=== PATIENT | female | born 1985 | race Caucasian/White ===

== ENCOUNTER → 2016-04-13 | Outpatient (CLI) | payer OTHER ==
--- NOTE | 2016-04-13 08:44 | FL ---
EXAMINATION TYPE: FL UGI DATE OF EXAM ORDERED: 04/13/2016 8:27 AM HISTORY: Globus sensation. COMPARISON: None. FINDINGS: The esophagus distended well with air and barium without evidence of obstructing or constr icting disease. There is no significant reflux. There is no evidence of hiatal hernia Stomach contour is normal. There is no fixed filling defect or aurelia ulceration. The duodenal cap and sweep are normal, IMPRESSION: NORMAL AIR-CONTRAST UPPER GI SERIES.
== END | disposition home or self-care (01) ==
LOC: RADFLWHC 07:39
PROVIDERS: ATTEND Physician Assistant
DX: F45.8 Other somatoform disorders (principal)
CPT/HCPCS: 74240

== ENCOUNTER 2017-08-01 07:26 | Emergency (ER) | payer OTHER ==
[2017-08-01] MEDS ORDERED: KETOROLAC 30 MG/ML 1 ML VIAL IVP STA (07:57)
[2017-08-01] MEDS ORDERED: SODIUM CHLORIDE 0.9% 500 ML IV STA (07:57)
--- NOTE | 2017-08-01 08:06 | ED ---
General Adult HPI - General Chief complaint: Back Pain/Injury Stated complaint: Right abdominal pain Time Seen by Provider: 08/01/17 07:26 Source: patient, RN notes reviewed Mode of arrival: ambulatory Limitations: no limitations - History of Present Illness Initial comments: This is a 32-year-old female presents emergency Department complaining of right sided CVA pain since 1 AM this morning. Patient states the pain is sharp in nature and usually last 2-3 seconds. Patient states occasionally does come and stay for a while and is pretty significant pain. Patient states it does not radiate anywhere. Patient states she has no abdominal pain patient denies nausea vomiting diarrhea. Patient denies any dysuria hematuria or urinary frequency. Patient states that she recently got over urinary tract infection stopped taking antibiotics about a week ago. Patient states it does not appear that any kind of position increases her pain. Patient states she did sleep in her son's bed last night which is unusual. Patient denies any fever chills. - Related Data Home Medications Medication Instructions Recorded Confirmed ALPRAZolam [Xanax] 0.25 mg PO DAILY PRN 04/24/15 05/07/15 Calcium Carbonate [Tums] 500 mg PO DAILY PRN 04/24/15 05/07/15 Ergocalciferol [Vitamin D2 50,000 unit PO TH 04/24/15 05/07/15 (DRISDOL)] Ibuprofen [Motrin] 800 mg PO DAILY PRN 04/24/15 05/03/15 Cholecalciferol [Vitamin D3] 1,000 unit PO DAILY 05/03/15 05/07/15 Ondansetron [Zofran] 4 mg PO Q8HR PRN 05/07/15 05/07/15 Previous Rx's Medication Instructions Recorded HYDROcodone/APAP 7.5-325MG [[place] 1 each PO Q4H PRN #60 tab 04/25/15 7.5] Ketorolac [Toradol] 10 mg PO Q6HR #15 tab 08/01/17 Sulfamethox-Tmp 800-160Mg [Bactrim 1 each PO Q12HR #14 tab 08/01/17 DS 800-160 mg] Allergies Allergy/AdvReac Type Severity Reaction Status Date / Time No Known Allergies Allergy Verified 08/01/17 07:29 Review of Systems ROS Statement: Those systems with pertinent positive or pertinent negative responses have been documented in the HPI. ROS Other: All systems not noted in ROS Statement are negative. Past Medical History Past Medical History: GI Bleed Additional Past Medical History / Comment(s): ABD PAIN, NAUSEA. ALLERGIES/ NASAL. History of Any Multi-Drug Resistant Organisms: None Reported Past Surgical History: Cholecystectomy Additional Past Surgical History / Comment(s): COLONSCOPY ONLY. Past Anesthesia/Blood Transfusion Reactions: No Reported Reaction Past Psychological History: Anxiety Smoking Status: Never smoker Past Alcohol Use History: None Reported Past Drug Use History: None Reported General Exam - General Exam Comments Initial Comments: GENERAL: Patient is well-developed and well-nourished. Patient is nontoxic and well- hydrated and is in mild distress. ENT: Neck is soft and supple. No significant lymphadenopathy is noted. Oropharynx is clear. Moist mucous membranes. EYES: The sclera were anicteric and conjunctiva were pink and moist. Extraocular movements were intact and pupils were equal round and reactive to light. Eyelids were unremarkable. PULMONARY: Unlabored respirations. Good breath sounds bilaterally. No audible rales rhonchi or wheezing was noted. CARDIOVASCULAR: There is a regular rate and rhythm without any murmurs gallops or rubs. ABDOMEN: Soft and nontender with normal bowel sounds. SKIN: Skin is clear with no lesions or rashes and otherwise unremarkable. NEUROLOGIC: Patient is alert and oriented x3. Cranial nerves II through XII are grossly intact. Motor and sensory are also intact. Normal speech, volume and content. Symmetrical smile. MUSCULOSKELETAL: Normal extremities with adequate strength and full range of motion. No lower extremity swelling or edema. No calf tenderness. Patient has some CVA tenderness on palpation on the right LYMPHATICS: No significant lymphadenopathy is noted PSYCHIATRIC: Normal psychiatric evaluation. Limitations: no limitations Course Vital Signs 08/01/17 08/01/17 07:28 09:30 Temperature 98.4 F 98.7 F Pulse Rate 101 H 78 Respiratory 20 16 Rate Blood Pressure 135/103 138/80 O2 Sat by Pulse 99 98 Oximetry Medical Decision Making - Medical Decision Making Computed tomography scan shows a 5 mm right distal ureteral stone with some hydronephrosis. Patient has had a few white cells in the urine unable to differentiate whether it's from the blood or an infection so we will treat for infection as well. - Lab Data Result diagrams: 08/01/17 07:58 08/01/17 07:45 Lab Results 08/01/17 08/01/17 08/01/17 Range/Units 07:45 07:45 07:58 WBC 11.8 H (3.8-10.6) k/uL RBC 4.99 (3.80-5.40) m/uL Hgb 12.5 (11.4-16.0) gm/dL Hct 38.9 (34.0-46.0) % MCV 78.0 L (80.0-100.0) fL MCH 25.0 (25.0-35.0) pg MCHC 32.0 (31.0-37.0) g/dL RDW 17.9 H (11.5-15.5) % Plt Count 264 (150-450) k/uL Neutrophils % 78 % Lymphocytes % 14 % Monocytes % 4 % Eosinophils % 2 % Basophils % 0 % Neutrophils # 9.2 H (1.3-7.7) k/uL Lymphocytes # 1.7 (1.0-4.8) k/uL Monocytes # 0.5 (0-1.0) k/uL Eosinophils # 0.2 (0-0.7) k/uL Basophils # 0.0 (0-0.2) k/uL Anisocytosis Slight Microcytosis Slight Sodium 143 (137-145) mmol/L Potassium 3.7 (3.5-5.1) mmol/L Chloride 103 (98-107) mmol/L Carbon Dioxide 29 (22-30) mmol/L Anion Gap 11 mmol/L BUN 8 (7-17) mg/dL Creatinine 0.62 (0.52-1.04) mg/dL Est GFR (CKD-EPI)AfAm >90 (>60 ml/min/1.73 sqM) Est GFR (CKD-EPI)NonAf >90 (>60 ml/min/1.73 sqM) Glucose 80 (74-99) mg/dL Calcium 9.2 (8.4-10.2) mg/dL Total Bilirubin 0.4 (0.2-1.3) mg/dL AST 27 (14-36) U/L ALT 44 (9-52) U/L Alkaline Phosphatase 83 (38-126) U/L Total Protein 6.2 L (6.3-8.2) g/dL Albumin 3.7 (3.5-5.0) g/dL Amylase 44 (30-110) U/L Lipase 30 (23-300) U/L Urine Color Light [place] Urine Appearance Turbid H (Clear) Urine pH 7.5 (5.0-8.0) Ur Specific [place] 1.015 (1.001-1.035) Urine Protein 3+ H (Negative) Urine Glucose (UA) Negative (Negative) Urine Ketones Negative (Negative) Urine Blood Large H (Negative) Urine Nitrite Negative (Negative) Urine Bilirubin Negative (Negative) Urine Urobilinogen <2.0 (<2.0) mg/dL Ur Leukocyte Esterase Large H (Negative) Urine RBC >182 H (0-5) /hpf Urine WBC >182 H (0-5) /hpf Urine WBC Clumps Many H (None) /hpf Urine Bacteria Rare H (None) /hpf Urine Mucus Rare H (None) /hpf Disposition Clinical Impression: Kidney stone, Hydronephrosis, Urinary tract infection Disposition: HOME SELF-CARE Instructions: Kidney Stones (ED), Urinary Tract Infection in Women (ED) Prescriptions: Ketorolac [Toradol] 10 mg PO Q6HR #15 tab Sulfamethox-Tmp 800-160Mg [Bactrim DS 800-160 mg] 1 each PO Q12HR #14 tab Is patient prescribed a controlled substance at d/c from ED?: No Referrals: Eric Manley DO [Primary Care Provider] - 1-2 days Time of Disposition: 10:06
[2017-08-01 08:21] LABS: Anisocytosis Slight; Basophils % (A) 0 %; Eosinophils # (A) 0.2 k/uL (0-0.7); Eosinophils % (A) 2 %; HCT 38.9 % (34.0-46.0); HGB 12.5 gm/dL (11.4-16.0); Lymphocytes # (A) 1.7 k/uL (1.0-4.8); Lymphocytes % (A) 14 %; Mean Platelet Volume 6.1; Microcytosis Slight; Monocytes # (A) 0.5 k/uL (0-1.0); Monocytes % (A) 4 %; Neutrophils # (A) 9.2 k/uL (1.3-7.7); Neutrophils % (A) 78 %; Platelet Count 264 k/uL (150-450); RBC 4.99 m/uL (3.80-5.40); RDW 17.9 % (11.5-15.5); WBC 11.8 k/uL (3.8-10.6)
[2017-08-01 08:26] LABS: Appearance,Urine Turbid (Clear); Bacteria,Urine Rare /hpf; Bilirubin,Urine Negative (Negative); Blood,Urine Large (Negative); Color,Urine Light Orange; Glucose,Urine (UA) Negative (Negative); Ketones,Urine Negative (Negative); Leukocyte Esterase,Urine Large (Negative); Mucus,Urine Rare /hpf; Nitrite,Urine Negative (Negative); PH, Urine 7.5 (5.0-8.0); Protein,Urine 3+ (Negative); RBC,Urine >182 /hpf (0-5); Specific Gravity,Urine 1.015 (1.001-1.035); Urobilinogen,Urine <2.0 mg/dL (<2.0); WBC,Urine >182 /hpf (0-5)
[2017-08-01 08:36] LABS: ALT 44 U/L (9-52); AST 27 U/L (14-36); Albumin 3.7 g/dL (3.5-5.0); Alkaline Phosphatase 83 U/L (38-126); Amylase 44 U/L (30-110); Anion Gap 11 mmol/L; Blood Urea Nitrogen 8 mg/dL (7-17); Calcium 9.2 mg/dL (8.4-10.2); Carbon Dioxide 29 mmol/L (22-30); Chloride 103 mmol/L (98-107); Glucose 80 mg/dL (74-99); Lipase 30 U/L (23-300); Potassium 3.7 mmol/L (3.5-5.1); Sodium 143 mmol/L (137-145); Total Bilirubin 0.4 mg/dL (0.2-1.3); Total Protein 6.2 g/dL (6.3-8.2)
--- NOTE | 2017-08-01 09:29 | CT ---
EXAMINATION TYPE: CT abdomen pelvis wo con DATE OF EXAM: 08/01/2017 HISTORY: Rt flank pain CT DLP: 62052.9 mGycm. Automated Exposure Control for Dose Reduction was Utilized. TECHNIQUE: CT scan of the abdomen and pelvis is performed without oral or IV contrast. COMPARISON: Renal ultrasound July 04, 2015 FINDINGS: Within the limitations of a non-contrast study, the following observations are made. LUNG BASES: No significant abnormality is appreciated. LIVER/GB: Liver is diffusely low dense consistent with fatty infiltration. Gallbladder is not visuali zed and presumed surgically absent. Cholecystectomy clips are not clearly seen however. PANCREAS: No significant abnormality is seen. SPLEEN: No significant abnormality is seen. ADRENALS: No significant abnormality is seen. KIDNEYS: No left-sided renal calculi or hydronephrosis. There is calculus measuring 5 mm on long axis in the distal right ureter axial image 127 causing mild to moderate right-sided pyelocaliectasis and proximal hydroureter. No additional right-sided renal calculi are seen. Mild to moderate fat strandi ng surrounding the right ureter is noted. Scattered pelvic phleboliths are seen, favor phlebolith bet ween bladder and uterus axial image 129 based on correlation with coronal and sagittal images. BOWEL: Normal-appearing appendix is incidentally seen from cecum. GENITAL ORGANS: Slight prominence to both ovaries likely reflects cystic change, this could be confir med with pelvic ultrasound if desired LYMPH NODES: No greater than 1cm abdominal or pelvic lymph nodes are appreciated. OSSEOUS STRUCTURES: No significant abnormality is seen. OTHER: No significant additional abnormality is seen. IMPRESSION: There is 5 mm calculus in distal right ureter causing mild to moderate right-sided hydron ephrosis.
[2017-08-01 09:31] VITALS: RESP 16
[2017-08-01] MEDS ORDERED: KETOROLAC 60 MG/2 ML VIAL IVP STA (10:01)
[2017-08-01] MEDS ORDERED: cefTRIAXone IN SWFI 1,000 MG/10 ML SYRINGE IVP STA (10:01)
[2017-08-01 10:48] VITALS: BP 148/82; PULSE 69; TEMP 98.3
== END 2017-08-01 10:45 | disposition home or self-care (01) ==
LOC: EC 07:26
DX: N13.2 Hydronephrosis with renal and ureteral calculous obstruction (principal); N39.0 Urinary tract infection, site not specified; Z79.899 Other long term (current) drug therapy; Z90.49 Acquired absence of other specified parts of digestive tract
CPT/HCPCS: 36415; 80053; 82150; 83690; 85025; 81001; 74176; 99284; 96374; 96375; 96376; J0696; J1885 ×2

== ENCOUNTER 2018-03-06 00:57 | Emergency (ER) | payer OTHER ==
[2018-03-06 01:14] VITALS: RESP 16
[2018-03-06 01:31] LABS: Appearance,Urine Cloudy (Clear); Bilirubin,Urine Negative (Negative); Blood,Urine Negative (Negative); Budding Yeast,Urine Few /hpf; Color,Urine Light Yellow; Glucose,Urine (UA) Negative (Negative); Ketones,Urine Negative (Negative); Leukocyte Esterase,Urine Large (Negative); Mucus,Urine Rare /hpf; Nitrite,Urine Negative (Negative); Protein,Urine Negative (Negative); RBC,Urine 8 /hpf (0-5); Specific Gravity,Urine 1.009 (1.001-1.035); Squamous Epithelial Cell,Urine 1 /hpf (0-4); Urobilinogen,Urine <2.0 mg/dL (<2.0); WBC,Urine 59 /hpf (0-5)
[2018-03-06] MEDS ORDERED: KETOROLAC 30 MG/ML 1 ML VIAL IVP STA (01:37)
--- NOTE | 2018-03-06 01:53 | ED ---
General Adult HPI - General Chief complaint: Abdominal Pain Stated complaint: poss kidney stone Time Seen by Provider: 03/06/18 01:15 Source: patient Mode of arrival: ambulatory Limitations: no limitations - History of Present Illness Initial comments: Marlys is an obese 32-year-old female who presents the emergency department today for evaluation of urinary frequency, hesitancy, dysuria and right flank pain. Patient reports she's been in her usual state of health until this evening. She is woken from sleep of right-sided flank pain and has noted for the past couple of hours she has urinary frequency urgency and dysuria. Patient reports she's had a kidney stone one time in the past which passed spontaneously without urological intervention. She does not follow with urology. Patient reports she is feeling very nauseated but has not had any vomiting. Patient does report she's a significant history of anxiety and she is feeling very anxious due to having to come to the emergency department. Patient denies any fevers, chills, chest pain shortness of breath or change in bowel habits. - Related Data Home Medications Medication Instructions Recorded Confirmed ALPRAZolam [Xanax] 0.25 mg PO DAILY PRN 04/24/15 05/07/15 Calcium Carbonate [Tums] 500 mg PO DAILY PRN 04/24/15 05/07/15 Ergocalciferol [Vitamin D2 50,000 unit PO TH 04/24/15 05/07/15 (DRISDOL)] Ibuprofen [Motrin] 800 mg PO DAILY PRN 04/24/15 05/03/15 Cholecalciferol [Vitamin D3] 1,000 unit PO DAILY 05/03/15 05/07/15 Ondansetron [Zofran] 4 mg PO Q8HR PRN 05/07/15 05/07/15 Previous Rx's Medication Instructions Recorded HYDROcodone/APAP 7.5-325MG [[place] 1 each PO Q4H PRN #60 tab 04/25/15 7.5] Ketorolac [Toradol] 10 mg PO Q6HR #15 tab 08/01/17 Sulfamethox-Tmp 800-160Mg [Bactrim 1 each PO Q12HR #14 tab 08/01/17 DS 800-160 mg] Cephalexin [Keflex] 500 mg PO Q8HR #30 cap 03/06/18 Phenazopyridine HCl [Pyridium] 200 mg PO BID #6 tablet 03/06/18 Sulfamethox-Tmp 800-160Mg [Bactrim 1 tab PO Q12HR #14 tab 03/06/18 DS 800-160 mg] Allergies Allergy/AdvReac Type Severity Reaction Status Date / Time sulfamethoxazole Allergy Intermediate Rash/Hives Verified 03/06/18 05:05 [From Bactrim] trimethoprim [From Bactrim] Allergy Intermediate Rash/Hives Verified 03/06/18 05 :05 Review of Systems ROS Statement: Those systems with pertinent positive or pertinent negative responses have been documented in the HPI. ROS Other: All systems not noted in ROS Statement are negative. Past Medical History Past Medical History: GI Bleed Additional Past Medical History / Comment(s): ABD PAIN, NAUSEA. ALLERGIES/ NASAL. History of Any Multi-Drug Resistant Organisms: None Reported Past Surgical History: Cholecystectomy Additional Past Surgical History / Comment(s): COLONSCOPY ONLY. Past Anesthesia/Blood Transfusion Reactions: No Reported Reaction Past Psychological History: Anxiety Smoking Status: Never smoker Past Alcohol Use History: None Reported Past Drug Use History: None Reported General Exam - General Exam Comments Initial Comments: Physical Exam GENERAL: Patient is well-developed and well-nourished. Patient is nontoxic and well-hydrated and is in mild distress HENT: Normocephalic, Atraumatic. EYES: PERRL, EOMI PULMONARY: Unlabored respirations. No audible rales rhonchi or wheezing was noted. CARDIOVASCULAR: There is a regular rate and rhythm without any murmurs gallops or rubs. ABDOMEN: Soft and nontender with normal bowel sounds. Right flank tenderness to percussion SKIN: Skin is clear with no lesions or rashes and otherwise unremarkable. : Deferred NEUROLOGIC: Patient is alert and oriented x3. Moving all extremities spontaneously MUSCULOSKELETAL: Normal extremities with adequate strength and full range of motion. No lower extremity swelling or edema. No calf tenderness. PSYCHIATRIC: Normal psychiatric evaluation. Limitations: no limitations Limitations: no limitations Course Vital Signs 03/06/18 01:10 Temperature 98.5 F Pulse Rate 100 Respiratory 16 Rate Blood Pressure 152/105 O2 Sat by Pulse 99 Oximetry Medical Decision Making - Medical Decision Making The patient was seen and evaluated history was obtained from the patient History and physical exam are concerning for urinary tract infection or kidney stone. Labs IV fluids and Toradol ordered Urinalysis 6 suggestive of a urinary tract infection. Urine culture and Rocephin were ordered. Pyridium was ordered for symptomatically treatment of dysuria. I discussed the urinalysis results with the patient, she states she has had dysuria for a few days longer but it acutely worsened this morning so she can she may have a bad urinary infection Bedside ultrasound revealed no hydronephrosis I advised the patient that no hydronephrosis indicates that there is no obstructing kidney stone however I cannot absolutely rule out a small stone. Patient reports IV fluids of caused her some increasing pressure and urinary frequency. At this time I'll plan to discharge patient home with antibiotics and Pyridium. Return parameters were discussed. All questions pertaining care were answered patient was discharged home in stable condition. - Lab Data Result diagrams: 03/06/18 02:16 03/06/18 02:16 Lab Results 03/06/18 03/06/18 03/06/18 Range/Units 01:04 01:04 02:16 WBC (3.8-10.6) k/uL RBC (3.80-5.40) m/uL Hgb (11.4-16.0) gm/dL Hct (34.0-46.0) % MCV (80.0-100.0) fL MCH (25.0-35.0) pg MCHC (31.0-37.0) g/dL RDW (11.5-15.5) % Plt Count (150-450) k/uL Neutrophils % % Lymphocytes % % Monocytes % % Eosinophils % % Basophils % % Neutrophils # (1.3-7.7) k/uL Lymphocytes # (1.0-4.8) k/uL Monocytes # (0-1.0) k/uL Eosinophils # (0-0.7) k/uL Basophils # (0-0.2) k/uL Hypochromasia Anisocytosis Microcytosis Sodium 137 (137-145) mmol/L Potassium 5.7 H (3.5-5.1) mmol/L Chloride 108 H (98-107) mmol/L Carbon Dioxide 23 (22-30) mmol/L Anion Gap 6 mmol/L BUN 12 (7-17) mg/dL Creatinine 0.63 (0.52-1.04) mg/dL Est GFR (CKD-EPI)AfAm >90 (>60 ml/min/1.73 sqM) Est GFR (CKD-EPI)NonAf >90 (>60 ml/min/1.73 sqM) Glucose 109 H (74-99) mg/dL Calcium 9.6 (8.4-10.2) mg/dL Urine Color Light Yellow Urine Appearance Cloudy H (Clear) Urine pH 6.0 (5.0-8.0) Ur Specific [place] 1.009 (1.001-1.035) Urine Protein Negative (Negative) Urine Glucose (UA) Negative (Negative) Urine Ketones Negative (Negative) Urine Blood Negative (Negative) Urine Nitrite Negative (Negative) Urine Bilirubin Negative (Negative) Urine Urobilinogen <2.0 (<2.0) mg/dL Ur Leukocyte Esterase Large H (Negative) Urine RBC 8 H (0-5) /hpf Urine WBC 59 H (0-5) /hpf Ur Squamous Epith Cells 1 (0-4) /hpf Urine Mucus Rare H (None) /hpf Urine Yeast (Budding) Few H (None) /hpf Urine HCG, Qual Not Detected (Not Detectd) 03/06/18 Range/Units 02:16 WBC 11.5 H (3.8-10.6) k/uL RBC 5.02 (3.80-5.40) m/uL Hgb 12.2 (11.4-16.0) gm/dL Hct 40.1 (34.0-46.0) % MCV 79.8 L (80.0-100.0) fL MCH 24.3 L (25.0-35.0) pg MCHC 30.5 L (31.0-37.0) g/dL RDW 17.3 H (11.5-15.5) % Plt Count 224 (150-450) k/uL Neutrophils % 78 % Lymphocytes % 14 % Monocytes % 4 % Eosinophils % 2 % Basophils % 0 % Neutrophils # 9.0 H (1.3-7.7) k/uL Lymphocytes # 1.6 (1.0-4.8) k/uL Monocytes # 0.5 (0-1.0) k/uL Eosinophils # 0.3 (0-0.7) k/uL Basophils # 0.0 (0-0.2) k/uL Hypochromasia Slight Anisocytosis Slight Microcytosis Slight Sodium (137-145) mmol/L Potassium (3.5-5.1) mmol/L Chloride (98-107) mmol/L Carbon Dioxide (22-30) mmol/L Anion Gap mmol/L BUN (7-17) mg/dL Creatinine (0.52-1.04) mg/dL Est GFR (CKD-EPI)AfAm (>60 ml/min/1.73 sqM) Est GFR (CKD-EPI)NonAf (>60 ml/min/1.73 sqM) Glucose (74-99) mg/dL Calcium (8.4-10.2) mg/dL Urine Color Urine Appearance (Clear) Urine pH (5.0-8.0) Ur Specific [place] (1.001-1.035) Urine Protein (Negative) Urine Glucose (UA) (Negative) Urine Ketones (Negative) Urine Blood (Negative) Urine Nitrite (Negative) Urine Bilirubin (Negative) Urine Urobilinogen (<2.0) mg/dL Ur Leukocyte Esterase (Negative) Urine RBC (0-5) /hpf Urine WBC (0-5) /hpf Ur Squamous Epith Cells (0-4) /hpf Urine Mucus (None) /hpf Urine Yeast (Budding) (None) /hpf Urine HCG, Qual (Not Detectd) Disposition Clinical Impression: UTI (urinary tract infection) Disposition: HOME SELF-CARE Condition: Stable Instructions: Phenazopyridine (By mouth), Urinary Tract Infection in Women (ED) Prescriptions: Phenazopyridine HCl [Pyridium] 200 mg PO BID #6 tablet Sulfamethox-Tmp 800-160Mg [Bactrim DS 800-160 mg] 1 tab PO Q12HR #14 tab Is patient prescribed a controlled substance at d/c from ED?: No Referrals: Eric Manley DO [Primary Care Provider] - 1-2 days
[2018-03-06 02:42] LABS: Anisocytosis Slight; Basophils % (A) 0 %; Eosinophils # (A) 0.3 k/uL (0-0.7); Eosinophils % (A) 2 %; HCT 40.1 % (34.0-46.0); HGB 12.2 gm/dL (11.4-16.0); Hypochromasia Slight; Lymphocytes # (A) 1.6 k/uL (1.0-4.8); Lymphocytes % (A) 14 %; MCH 24.3 pg (25.0-35.0); MCHC 30.5 g/dL (31.0-37.0); MCV 79.8 fL (80.0-100.0); Mean Platelet Volume 6.8; Microcytosis Slight; Monocytes # (A) 0.5 k/uL (0-1.0); Monocytes % (A) 4 %; Neutrophils % (A) 78 %; Platelet Count 224 k/uL (150-450); RBC 5.02 m/uL (3.80-5.40); RDW 17.3 % (11.5-15.5); WBC 11.5 k/uL (3.8-10.6)
[2018-03-06 02:48] LABS: Anion Gap 6 mmol/L; Calcium 9.6 mg/dL (8.4-10.2); Carbon Dioxide 23 mmol/L (22-30); Chloride 108 mmol/L (98-107); Glucose 109 mg/dL (74-99); Sodium 137 mmol/L (137-145)
[2018-03-06 02:53] LABS: Blood Urea Nitrogen 12 mg/dL (7-17); Potassium 5.7 mmol/L (3.5-5.1)
[2018-03-06] MEDS ORDERED: PHENAZOPYRIDINE 200 MG TAB PO STA (02:53)
[2018-03-06] MEDS ORDERED: MORPHINE SULFATE 4 MG/ML SYRINGE IVP STA (04:44)
[2018-03-06] MEDS ORDERED: ACET/COD 300 MG/30 MG STARTER PACK 6 TAB BTL PO STA (04:44)
[2018-03-06 05:26] VITALS: BP 149/97; PULSE 89; TEMP 98.2
== END 2018-03-06 05:22 | disposition home or self-care (01) ==
LOC: EC 00:57
DX: N39.0 Urinary tract infection, site not specified (principal); Z90.49 Acquired absence of other specified parts of digestive tract; Z88.2 Allergy status to sulfonamides
CPT/HCPCS: 99284; 96365; 96375 ×2; 36415; 80048; 85025; 81001; 81025; 87040; 87086; 87077; 87186; J2270; J0696; J1885

== ENCOUNTER → 2020-03-11 | Outpatient (CLI) | payer OTHER ==
[2020-03-11 13:47] VITALS: BP 151/86; PULSE 105; RESP 18; TEMP 98.2; BMI 47.2
[2020-03-11 15:27] LABS: Anisocytosis Slight; HCT 40.8 % (34.0-46.0); HGB 13.1 gm/dL (11.4-16.0); Hypochromasia Slight; MCH 26.2 pg (25.0-35.0); MCV 81.9 fL (80.0-100.0); Mean Platelet Volume 6.8; Platelet Count 309 k/uL (150-450); RBC 4.98 m/uL (3.80-5.40); RDW 16.5 % (11.5-15.5); WBC 14.4 k/uL (3.8-10.6)
[2020-03-12 03:53] LABS: Albumin 4.2 g/dL (3.80-4.90); Albumin/Globulin Ratio 1.91 (1.60-3.17); Anion Gap 10.1 mmol/L (4.00-12.00); BUN/Creat Ratio 14.29 Ratio (12.00-20.00); Calcium 8.9 mg/dL (8.7-10.3); Carbon Dioxide 24.9 mmol/L (21.6-31.8); Globulin 2.2 g/dL (1.6-3.3); Potassium 4.2 mmol/L (3.5-5.5); Total Bilirubin 0.3 mg/dL (0.2-1.2); Total Protein 6.4 g/dL (6.2-8.2)
[2020-03-12 04:02] LABS: Folate, Serum 8.2 ng/mL
--- NOTE | 2020-03-12 11:11 | P.HPBAR ---
Bariatric H&P - History & Physicial H&P Date: 03/11/20 History & Physicial: Visit/CC: initial visit Patient initial contact: Initial weight: Initial weight in pounds: Height: 5 ft 7 in Initial BMI: Last weight: Current weight: 136.849 kg Current weight in pounds: 301.70 Current BMI: 47.2 [place] body weight (based on NIH guidelines): 61.235 kg Excess body weight loss: The patient is a 34 year-old F who presents for Bariatric Assessment. Patient presents today for morbid obesity conservation. Her BMI is 47. She is interested in sleeve yesterday. Patient's had lifetime obesity. Past Medical History Past Medical History: GI Bleed Additional Past Medical History / Comment(s): ABD PAIN, NAUSEA. ALLERGIES/[place]. History of Any Multi-Drug Resistant Organisms: None Reported Past Surgical History: Cholecystectomy Additional Past Surgical History / Comment(s): COLONSCOPY ONLY. EGD. Past Anesthesia/Blood Transfusion Reactions: No Reported Reaction Past Psychological History: Anxiety Smoking Status: Never smoker Past Alcohol Use History: None Reported Past Drug Use History: None Reported Surgical - Exam Vital Signs Temp Pulse Resp BP 98.2 F 105 H 18 151/86 03/11/20 13:41 03/11/20 13:41 03/11/20 13:41 03/11/20 13:41 - General well developed, well nourished, no distress - Eyes PERRL - ENT normal pinna - Neck no masses - Respiratory normal expansion - Cardiovascular Rhythm: regular - Abdomen Abdomen: soft, non tender Results - Labs 03/11/20 14:33 03/11/20 14:33 Abnormal Lab Results - Last 24 Hours (Table) 03/11/20 03/11/20 Range/Units 14:33 14:33 WBC 14.4 H (3.8-10.6) k/uL RDW 16.5 H (11.5-15.5) % Vitamin D 25-Hydroxy 13.1 L (30.0-100.0) ng/mL Diabetes panel 03/11/20 03/11/20 Range/Units 14:33 14:33 Sodium 140 (135-145) mmol/L Potassium 4.2 (3.5-5.5) mmol/L Chloride 105 (96-109) mmol/L Carbon Dioxide 24.9 (21.6-31.8) mmol/L BUN 10.0 (9.0-27.0) mg/dL Creatinine 0.7 (0.6-1.5) mg/dL Glucose 104 (70-110) mg/dL Hemoglobin A1c 5.6 (4.0-6.0) % Calcium 8.9 (8.7-10.3) mg/dL AST 28 (13-35) U/L ALT 40 (8-44) U/L Alkaline Phosphatase 117 (41-126) U/L Total Protein 6.4 (6.2-8.2) g/dL Albumin 4.20 (3.80-4.90) g/dL Calcium panel 03/11/20 Range/Units 14:33 Calcium 8.9 (8.7-10.3) mg/dL Albumin 4.20 (3.80-4.90) g/dL Pituitary panel 03/11/20 Range/Units 14:33 Sodium 140 (135-145) mmol/L Potassium 4.2 (3.5-5.5) mmol/L Chloride 105 (96-109) mmol/L Carbon Dioxide 24.9 (21.6-31.8) mmol/L BUN 10.0 (9.0-27.0) mg/dL Creatinine 0.7 (0.6-1.5) mg/dL Glucose 104 (70-110) mg/dL Calcium 8.9 (8.7-10.3) mg/dL Adrenal panel 03/11/20 Range/Units 14:33 Sodium 140 (135-145) mmol/L Potassium 4.2 (3.5-5.5) mmol/L Chloride 105 (96-109) mmol/L Carbon Dioxide 24.9 (21.6-31.8) mmol/L BUN 10.0 (9.0-27.0) mg/dL Creatinine 0.7 (0.6-1.5) mg/dL Glucose 104 (70-110) mg/dL Calcium 8.9 (8.7-10.3) mg/dL Total Bilirubin 0.3 (0.2-1.2) mg/dL AST 28 (13-35) U/L ALT 40 (8-44) U/L Alkaline Phosphatase 117 (41-126) U/L Total Protein 6.4 (6.2-8.2) g/dL Albumin 4.20 (3.80-4.90) g/dL Bariatric Assessment & Plan Plan: Morbid obesity, BMI 47. Patient be scheduled for EGD. She'll follow-up in the clinic after this is performed. Bariatric Checklist Checklist: Plan: Checklist: EGD: 1. Hiatal hernia: 2. H. Pylori: HgbA1c: Vitamin D: Smoking: Never smoker Primary care physician referral: Dr. lind Psychiatry clearance: Cardiology clearance: Sleep study: Diet journal: VTE risk score: VTE risk level: Rehab needs at discharge:
== END | disposition home or self-care (01) ==
LOC: BARWHC3 13:13
PROVIDERS: ATTEND Surgery
DX: E66.01 Morbid (severe) obesity due to excess calories (principal); Z68.42 Body mass index [BMI] 45.0-49.9, adult; Z90.49 Acquired absence of other specified parts of digestive tract
CPT/HCPCS: 36415; 80053; 82306; 82607; 82746; 83036; 84425; 85027; 93005; 99211

== ENCOUNTER 2020-04-18 07:37 | Day surgery (SDC) | payer OTHER ==
[2020-04-16 14:22] VITALS: BMI 47.0
[~2020-04-18 07:37] MED LIST: LACTATED RINGERS 1,000 ML IV SCH
[2020-04-18 08:01] VITALS: TEMP 98
[2020-04-18] MEDS ORDERED: LIDOCAINE 1% (10MG/ML) FOR IV START INTRADERMA ONE (08:14)
[2020-04-18] MEDS ORDERED: MIDAZOLAM 2 MG/2 ML VIAL IV ONE (08:18)
[2020-04-18] MEDS ORDERED: PROPOFOL 10 MG/ML 20 ML VIAL IV ONE (08:49)
[2020-04-18] MEDS ORDERED: LIDOCAINE 1% INJ 10MG/ML (20 ML MDV) ONE (08:49)
--- NOTE | 2020-04-18 08:51 | P.GSHP ---
History of Present Illness H&P Date: 04/18/20 Chief Complaint: GERD This is a 34-year-old female who's had issues with GERD. Patient is also morbidly obese with BMI 48. Past Medical History Past Medical History: GERD/Reflux Additional Past Medical History / Comment(s): abd. pain, nausea @times, IBS, mainly diarrhea, seasonal allergies History of Any Multi-Drug Resistant Organisms: None Reported Past Surgical History: Cholecystectomy Additional Past Surgical History / Comment(s): colonoscopies, EGD. Past Anesthesia/Blood Transfusion Reactions: No Reported Reaction Smoking Status: Never smoker Medications and Allergies Home Medications Medication Instructions Recorded Confirmed Type ALPRAZolam [Xanax] 1 mg PO DAILY PRN 04/24/15 04/18/20 History Escitalopram [Lexapro] 20 mg PO DAILY 03/11/20 04/18/20 History Omeprazole 20 mg PO DAILY 03/11/20 04/18/20 History Ergocalciferol [Vitamin D2 50,000 unit PO WEEKLY 03/14/20 04/18/20 History (DRISDOL)] Acetaminophen [Tylenol] 325 mg PO Q4-6H PRN 04/16/20 04/18/20 History Ferrous Sulfate [Feosol] 325 mg PO DAILY 04/16/20 04/18/20 History Loperamide [Imodium] 4 mg PO DIRECTED PRN 04/16/20 04/18/20 History Phentermine HCl [Adipex-P] 37.5 mg PO DAILY 04/16/20 04/18/20 History buPROPion HCL [Wellbutrin XL] 300 mg PO DAILY 04/16/20 04/18/20 History Allergies Allergy/AdvReac Type Severity Reaction Status Date / Time fluconazole [From Diflucan] Allergy Rash/Hives Verified 04/18/20 08:03 sulfamethoxazole AdvReac Intermediate Nausea Verified 04/18/20 08:03 [From Bactrim] trimethoprim [From Bactrim] AdvReac Intermediate Nausea Verified 04/18/20 08:03 Surgical - Exam Vital Signs Temp Pulse Resp BP Pulse Ox 98 F 97 18 152/98 96 04/18/20 07:59 04/18/20 07:59 04/18/20 07:59 04/18/20 07:59 04/18/20 07:59 - General well developed, well nourished, no distress - Eyes PERRL - ENT normal pinna - Neck no masses - Respiratory normal expansion - Cardiovascular Rhythm: regular - Abdomen Abdomen: soft, non tender Assessment and Plan Assessment: GERD Morbid obesity We'll perform EGD.
--- NOTE | 2020-04-18 08:59 | P.OP ---
Date of Procedure: 04/18/20 Preoperative Diagnosis: GERD Postoperative Diagnosis: Antral gastritis Procedure(s) Performed: EGD Anesthesia: MAC Surgeon: Nilo Romo Pathology: other (Antrum) Condition: stable Disposition: PACU Description of Procedure: The patient's placed on the endoscopy table in the lateral position. She rece ived IV sedation. The gastroscope placed oropharynx and passed in the esophagus and into the stomach. Scope was then placed through the pylorus. The first and second portion of the duodenum appeared normal. The scope was then brought back the antrum this was mildly inflamed. A biopsies performed. Scope was unretroflexed and remainder stomach appeared normal. The GE junction was at 40 cms. The distal esophagus appeared normal. Proximal esophagus appeared normal. There is no evidence of a hiatal hernia. The scope was withdrawn for patient.
[2020-04-18 09:06] VITALS: RESP 16
[2020-04-18 09:23] VITALS: BP 137/91; PULSE 85
== END 2020-04-18 09:31 | disposition home or self-care (01) ==
LOC: ORWHC2ENDO 07:37
PROVIDERS: ATTEND Surgery
DX: K29.00 Acute gastritis without bleeding (principal); K31.9 Disease of stomach and duodenum, unspecified; K21.9 Gastro-esophageal reflux disease without esophagitis; E66.01 Morbid (severe) obesity due to excess calories; K58.0 Irritable bowel syndrome with diarrhea; J30.2 Other seasonal allergic rhinitis; F41.9 Anxiety disorder, unspecified; Z88.2 Allergy status to sulfonamides; Z68.42 Body mass index [BMI] 45.0-49.9, adult; Z90.49 Acquired absence of other specified parts of digestive tract; Z98.890 Other specified postprocedural states; Z79.899 Other long term (current) drug therapy; Z88.8 Allergy status to other drugs, medicaments and biological substances
CPT/HCPCS: 81025; 88305; 43239; J2250; J2001; J2704

== ENCOUNTER → 2020-04-29 | Outpatient (CLI) | payer OTHER ==
[2020-04-29 13:54] VITALS: BP 142/85; PULSE 103; RESP 18; TEMP 98.4; BMI 48.0
--- NOTE | 2020-04-29 15:04 | P.HPBAR ---
Bariatric H&P - History & Physicial H&P Date: 04/29/20 History & Physicial: Visit/CC: presurgical Patient initial contact: Initial weight: Initial weight in pounds: Height: 5 ft 7 in Initial BMI: Last weight: Current weight: 139.253 kg Current weight in pounds: 307.00 Current BMI: 48.0 [place] body weight (based on NIH guidelines): 61.235 kg Excess body weight loss: The patient is a 34 year-old F who presents for Bariatric Assessment. Patient presents today for presurgical consultation. She is moderately obese. Her BMI is 48. She is well versed in the sleeve gastrectomy. She understood the risks and benefits of the procedure Past Medical History Past Medical History: GERD/Reflux Additional Past Medical History / Comment(s): abd. pain, nausea @times, IBS, mainly diarrhea, seasonal allergies History of Any Multi-Drug Resistant Organisms: None Reported Past Surgical History: Cholecystectomy Additional Past Surgical History / Comment(s): colonoscopies, EGD. Past Anesthesia/Blood Transfusion Reactions: No Reported Reaction Past Psychological History: Anxiety Smoking Status: Never smoker Past Alcohol Use History: None Reported Past Drug Use History: Marijuana Additional Drug Use History / Comment(s): 1-2 times week Surgical - Exam Vital Signs Temp Pulse Resp BP 98.4 F 103 H 18 142/85 04/29/20 13:50 04/29/20 13:50 04/29/20 13:50 04/29/20 13:50 - General well developed, well nourished, no distress - Eyes PERRL - ENT normal pinna - Neck no masses - Respiratory normal expansion - Cardiovascular Rhythm: regular - Abdomen Abdomen: soft, non tender Bariatric Assessment & Plan Plan: Morbid obesity, BMI 48.. Patient will undergo sleeve gastrectomy once her i nsurance authorization is complete. Bariatric Checklist Checklist: Plan: Checklist: EGD: 1. Hiatal hernia: 2. H. Pylori: HgbA1c: Vitamin D: Smoking: Never smoker Primary care physician referral: Dr. lind Psychiatry clearance: Cardiology clearance: Sleep study: Diet journal: VTE risk score: VTE risk level: Rehab needs at discharge:
== END ==
LOC: BARWHC3 13:19
PROVIDERS: ATTEND Surgery
DX: E66.01 Morbid (severe) obesity due to excess calories (principal); Z68.42 Body mass index [BMI] 45.0-49.9, adult
CPT/HCPCS: 99211

== ENCOUNTER → 2020-05-13 | Outpatient (CLI) | payer OTHER ==
[2020-05-13 09:39] VITALS: BMI 48.1
== END ==
LOC: BARWHC3 08:24
PROVIDERS: ATTEND Surgery
DX: E66.01 Morbid (severe) obesity due to excess calories (principal); Z71.3 Dietary counseling and surveillance
CPT/HCPCS: 97804

== ENCOUNTER → 2020-05-30 | Outpatient (CLI) | payer OTHER ==
[2020-05-30 08:55] LABS: Anisocytosis Slight; Basophils # (A) 0.1 k/uL (0-0.2); Basophils % (A) 1 %; Eosinophils # (A) 0.4 k/uL (0-0.7); Eosinophils % (A) 4 %; HCT 39.5 % (34.0-46.0); HGB 12.8 gm/dL (11.4-16.0); Lymphocytes # (A) 1.9 k/uL (1.0-4.8); Lymphocytes % (A) 17 %; MCH 25.9 pg (25.0-35.0); MCHC 32.5 g/dL (31.0-37.0); MCV 79.8 fL (80.0-100.0); Mean Platelet Volume 6.8; Microcytosis Slight; Monocytes # (A) 0.6 k/uL (0-1.0); Monocytes % (A) 6 %; Neutrophils # (A) 7.8 k/uL (1.3-7.7); Neutrophils % (A) 72 %; Platelet Count 282 k/uL (150-450); RBC 4.94 m/uL (3.80-5.40); RDW 16.8 % (11.5-15.5); WBC 10.8 k/uL (3.8-10.6)
[2020-05-30 09:12] LABS: ALT 44 U/L (4-34); AST 31 U/L (14-36); African American GFR (CKD) >90 (>60 ml/min/1.73 sqM); Albumin 3.6 g/dL (3.5-5.0); Alkaline Phosphatase 110 U/L (38-126); Anion Gap 4 mmol/L; Calcium 8.8 mg/dL (8.4-10.2); Carbon Dioxide 30 mmol/L (22-30); Chloride 103 mmol/L (98-107); Glucose 93 mg/dL (74-99); Non-African American GFR(CKD) >90 (>60 ml/min/1.73 sqM); Potassium 4.4 mmol/L (3.5-5.1); Sodium 137 mmol/L (137-145); Total Bilirubin 0.4 mg/dL (0.2-1.3); Total Protein 6.3 g/dL (6.3-8.2)
[2020-05-30 09:32] LABS: Blood Urea Nitrogen 11 mg/dL (7-17)
== END | disposition home or self-care (01) ==
LOC: LABPAT 07:52
PROVIDERS: ATTEND Surgery
DX: Z01.818 Encounter for other preprocedural examination (principal)
CPT/HCPCS: 36415; 80053; 85025

== ENCOUNTER → 2020-08-19 | Outpatient (CLI) | payer OTHER ==
[2020-08-19 16:14] LABS: Anisocytosis Slight; Basophils # (A) 0.1 k/uL (0-0.2); Basophils % (A) 1 %; Eosinophils # (A) 0.2 k/uL (0-0.7); Eosinophils % (A) 1 %; HCT 42.2 % (34.0-46.0); HGB 13.9 gm/dL (11.4-16.0); Hypochromasia Slight; Lymphocytes # (A) 1.8 k/uL (1.0-4.8); Lymphocytes % (A) 13 %; MCH 26.1 pg (25.0-35.0); MCHC 32.8 g/dL (31.0-37.0); MCV 79.7 fL (80.0-100.0); Mean Platelet Volume 7.2; Microcytosis Slight; Monocytes # (A) 0.6 k/uL (0-1.0); Monocytes % (A) 4 %; Neutrophils # (A) 11.6 k/uL (1.3-7.7); Neutrophils % (A) 80 %; Platelet Count 317 k/uL (150-450); RDW 17.1 % (11.5-15.5); WBC 14.4 k/uL (3.8-10.6)
[2020-08-19 16:29] LABS: ALT 37 U/L (4-34); AST 29 U/L (14-36); African American GFR (CKD) >90 (>60 ml/min/1.73 sqM); Albumin 4.2 g/dL (3.5-5.0); Alkaline Phosphatase 96 U/L (38-126); Anion Gap 6 mmol/L; Blood Urea Nitrogen 16 mg/dL (7-17); Calcium 9.4 mg/dL (8.4-10.2); Carbon Dioxide 28 mmol/L (22-30); Chloride 103 mmol/L (98-107); Glucose 108 mg/dL (74-99); Non-African American GFR(CKD) >90 (>60 ml/min/1.73 sqM); Potassium 4.2 mmol/L (3.5-5.1); Sodium 137 mmol/L (137-145); Total Bilirubin 0.4 mg/dL (0.2-1.3); Total Protein 6.8 g/dL (6.3-8.2)
== END | disposition home or self-care (01) ==
LOC: LABPAT 15:22
PROVIDERS: ATTEND Surgery
DX: Z01.812 Encounter for preprocedural laboratory examination (principal)
CPT/HCPCS: 36415; 80053; 85025

== ENCOUNTER 2020-08-28 07:06 | Inpatient (IN) | payer OTHER ==
[~2020-08-28 07:06] MED LIST changes: +DEXAMETHASONE SOD PHOSPHATE 4 MG/ML 1 ML VIAL IV ONE; +ENOXAPARIN 40 MG/0.4 ML SYRINGE SQ PRN; +GLYCOPYRROLATE 0.2 MG/ML 2 ML VIAL ONE; +KETOROLAC 15 MG/ML 1 ML VIAL ONE; -LACTATED RINGERS 1,000 ML IV SCH; +LIDOCAINE 1% (10MG/ML) FOR IV START INTRADERMA PRN; +LIDOCAINE 1% INJ 10MG/ML (20 ML MDV) ONE; +MIDAZOLAM 2 MG/2 ML VIAL IV PRN; +MIDAZOLAM 2 MG/2 ML VIAL ONE; +ONDANSETRON 4 MG/2 ML VIAL IVP ONE; +PROPOFOL 10 MG/ML 20 ML VIAL IV ONE; +ceFAZolin 3 GM in SODIUM CHLORIDE 0.9% 100 ML IVPB PRN; +fentaNYL (PF) 50 MCG/ML 2 ML AMP ONE
[2020-08-28] MEDS: LACTATED RINGERS 1,000 ML IV SCH (07:59)
--- NOTE | 2020-08-28 08:07 | P.GSHP ---
History of Present Illness H&P Date: 08/28/20 Chief Complaint: Morbid obesity This 35-year-old female who presents today for laparoscopic sleeve gastrectomy. Patient abnormalities. Her BMI is 43. Patient is an excellent understanding of sleeve gastrectomy. She is aware the risks and benefits of procedure. She is aware of the risk of gastric sleeve perforation, obstruction and scarring. Past Medical History Past Medical History: GERD/Reflux Additional Past Medical History / Comment(s): IBS, mainly diarrhea, seasonal allergies History of Any Multi-Drug Resistant Organisms: None Reported Past Surgical History: Cholecystectomy Additional Past Surgical History / Comment(s): colonoscopies, EGD. Past Anesthesia/Blood Transfusion Reactions: No Reported Reaction Smoking Status: Never smoker - Past Family History Mother Family Medical History: No Reported History Medications and Allergies Home Medications Medication Instructions Recorded Confirmed Type ALPRAZolam [Xanax] 1 mg PO DAILY PRN 04/24/15 08/28/20 History Escitalopram [Lexapro] 20 mg PO DAILY 03/11/20 08/28/20 History Omeprazole 20 mg PO DAILY 03/11/20 08/28/20 History Loperamide [Imodium] 4 mg PO DIRECTED PRN 04/16/20 08/28/20 History Allergies Allergy/AdvReac Type Severity Reaction Status Date / Time fluconazole [From Diflucan] Allergy Rash/Hives Verified 08/28/20 07:31 sulfamethoxazole AdvReac Intermediate Nausea Verified 08/28/20 07:31 [From Bactrim] trimethoprim [From Bactrim] AdvReac Intermediate Nausea Verified 08/28/20 07:31 Surgical - Exam Vital Signs Temp Pulse Resp BP Pulse Ox 97.3 F L 78 18 111/58 96 08/28/20 07:39 08/28/20 07:39 08/28/20 07:39 08/28/20 07:39 08/28/20 07:39 - General well developed, well nourished, no distress - Eyes PERRL - ENT normal pinna - Neck no masses - Respiratory normal expansion - Cardiovascular Rhythm: regular - Abdomen Abdomen: soft, non tender Assessment and Plan Assessment: Morbid obesity. We'll perform laparoscopic sleeve gastrectomy.
[2020-08-28] MEDS ORDERED: LIDOCAINE 1% INJ 10MG/ML (20 ML MDV) ONE (09:23)
[2020-08-28] MEDS ORDERED: fentaNYL (PF) 50 MCG/ML 2 ML AMP ONE (09:23)
[2020-08-28] MEDS ORDERED: KETAMINE 10 MG/ML 20 ML VIAL ONE (09:23)
[2020-08-28] MEDS ORDERED: KETOROLAC 15 MG/ML 1 ML VIAL ONE (09:23)
[2020-08-28] MEDS ORDERED: SUGAMMADEX SODIUM 500 MG/5 ML SDV IV ONE (09:23)
[2020-08-28] MEDS ORDERED: SUCCINYLCHOLINE CHLORIDE 100 MG/5 ML SYR IV ONE (09:23)
[2020-08-28] MEDS ORDERED: HYDROmorphone (PF) 1 MG/ML ONE (09:23)
[2020-08-28] MEDS ORDERED: ROCURONIUM 10 MG/ML (5 ML VIAL) IV ONE (09:23)
[2020-08-28] MEDS ORDERED: PROPOFOL 10 MG/ML 20 ML VIAL IV ONE (09:23)
[2020-08-28] MEDS ORDERED: METHYLENE BLUE 10 MG/ML (10 ML VIAL) ONE (09:23)
[2020-08-28] MEDS ORDERED: MIDAZOLAM 2 MG/2 ML VIAL ONE (09:23)
[2020-08-28] MEDS ORDERED: LIDOCAINE 1%-EPI 1:100,000 20 ML VIAL SQ ONE ×2 (09:53→09:55)
[2020-08-28] MEDS ORDERED: SIMETHICONE 40 MG/0.6 ML DROPS 2,000 MG/30 ML BOTTLE PO PRN (10:28)
[2020-08-28] MEDS ORDERED: HYOSCYAMINE ORAL DROPS 1.875 MG/15 ML BOTTLE PO PRN (10:28)
[2020-08-28] MEDS ORDERED: diphenhydrAMINE 50 MG/ML 1 ML VIAL IVP PRN (10:28)
[2020-08-28] MEDS ORDERED: NALOXONE 0.4 MG/ML 1 ML VIAL IV PRN (10:28)
--- NOTE | 2020-08-28 10:28 | P.OP ---
Date of Procedure: 08/28/20 Preoperative Diagnosis: Morbid obesity, BMI 42 Postoperative Diagnosis: Morbid obesity, BMI 42 Procedure(s) Performed: Laparoscopic sleeve gastrectomy Anesthesia: DOM Surgeon: Nilo Romo Estimated Blood Loss (ml): 5 Pathology: other (Stomach) Condition: stable Disposition: PACU Description of Procedure: The patient was placed on the operating room table in the supine position. She received general anesthesia and then was placed in dorsal lithotomy position. Her abdomen was prepped and draped in sterile fashion. The skin incision sites were anesthetized 1% local Xylocaine. And then the skin was incised with an 11 blade in the left lateral position. Using a blade less trocar under direct visualization the peritoneal cavity was entered. The abdomen was insufflated and then a 5 mm laparoscope was placed into the peritoneal cavity. A 5 mm trocar was placed in the right epigastric, and right lateral position. A 15 mm trocar was placed in the supra-umbilical position and another 5 mm trocar was placed in the left lateral position. The left lateral lobe of the liver was retracted. The stomach was visualized. The greater curvature of the stomach was then dissected using the Harmonic scissors. The dissection occurred approximately 5 cm from the pylorus to the level of the left angela. There was no hiatal hernia seen. At this point a 40-[place] bougie dilator was placed the oropharynx and passed into the esophagus and into the stomach by the UNIFORM CAP OPERATOR. The sleeve gastrectomy was performed by using the powered echelon stapler with a seam guard buttress material. Sequential firings of the stapler were performed. The gastric remnant was then brought out through the 15 mm trocar site. The dilator was withdrawn. And a orogastric tube was replaced into the stomach. The stomach was insufflated with 200 mL of methylene blue normal saline. There was no evidence of extravasation. The abdomen was irrigated there is no bleeding seen. The Peng-Michael device was used to close the 15 mm trocar with 0 Vicryl. Skin was closed with interrupted 3-0 Monocryl sutures once the trochars withdrawn. Dermabond dressing was applied. Patient was sent to recovery in stable condition.
[2020-08-28] MEDS: HYDROmorphone 0.5 MG/0.5 ML SYRINGE IVP PRN ×3 (10:52→13:00)
[2020-08-28] MEDS ORDERED: LACTATED RINGERS 1,000 ML IV ONE (10:54)
[2020-08-28] MEDS ORDERED: diphenhydrAMINE 50 MG/ML 1 ML VIAL IVP ONE (11:05)
[2020-08-28] MEDS ORDERED: fentaNYL (PF) 50 MCG/ML 2 ML AMP IVP ONE ×2 (11:25→12:15)
[2020-08-28] MEDS: ALBUTEROL NEBULIZED 2.5 MG/3 ML INHALATION SCH ×4 (12:54→21:59)
[2020-08-28] MEDS: KETOROLAC 15 MG/ML 1 ML VIAL IVP SCH ×3 (13:41→23:23)
[2020-08-28] MEDS: HYDROmorphone 1 MG/ML 1 ML SYRINGE IVP PRN ×4 (14:07→23:24)
[2020-08-28] MEDS: ceFAZolin 3 GM in SODIUM CHLORIDE 0.9% 100 ML IVPB SCH (16:46)
[2020-08-28] MEDS: 0.9% NACL WITH KCL 20 MEQ/L 1,000 ML IV SCH ×3 (16:46→23:33)
[2020-08-28] MEDS: ENOXAPARIN 40 MG/0.4 ML SYRINGE SQ SCH (20:07)
[2020-08-29] MEDS ORDERED: ALPRAZolam 1 MG TAB PO PRN (01:44)
[2020-08-29] MEDS: ceFAZolin 3 GM in SODIUM CHLORIDE 0.9% 100 ML IVPB SCH (02:09)
[2020-08-29] MEDS: HYDROmorphone 1 MG/ML 1 ML SYRINGE IVP PRN ×4 (02:35→12:08)
[2020-08-29 02:52] VITALS: RESP 16
[2020-08-29] MEDS: 1: MVI, ADULT NO.4 WITH VIT K 10 ML, THIAMINE 100 MG, FOLIC ACID 1 MG, POTASSIUM CHLORID IV SCH ×12 (04:24→14:51)
[2020-08-29] MEDS: 0.9% NACL WITH KCL 20 MEQ/L 1,000 ML IV SCH (04:30)
[2020-08-29] MEDS: KETOROLAC 15 MG/ML 1 ML VIAL IVP SCH ×2 (05:36→12:00)
[2020-08-29] MEDS: LACTATED RINGERS 1,000 ML IV SCH (05:47)
[2020-08-29] MEDS: ALBUTEROL NEBULIZED 2.5 MG/3 ML INHALATION SCH ×2 (07:28→11:46)
[2020-08-29] MEDS: ENOXAPARIN 40 MG/0.4 ML SYRINGE SQ SCH (08:24)
[2020-08-29] MEDS ORDERED: PANTOPRAZOLE 40 MG/10 ML VIAL IV SCH (09:00)
[2020-08-29 09:50] LABS: Basophils # (A) 0.03 X 10*3/uL (0.00-0.10); Basophils % (A) 0.3 %; Eosinophils # (A) 0.04 X 10*3/uL (0.04-0.35); Eosinophils % (A) 0.4 %; HCT 37.1 % (37.2-46.3); HGB 11.4 g/dL (12.0-15.0); Lymphocytes # (A) 1.34 X 10*3/uL (0.90-5.00); Lymphocytes % (A) 14.8 %; MCH 25.6 pg (27.0-32.0); MCHC 30.7 g/dL (32.0-37.0); MCV 83.4 fL (80.0-97.0); Mean Platelet Volume 10.3 fL (9.5-12.2); Monocytes # (A) 0.67 X 10*3/uL (0.20-1.00); Monocytes % (A) 7.4 %; Neutrophils # (A) 6.92 X 10*3/uL (1.80-7.70); Neutrophils % (A) 76.2 %; Platelet Count 280 X 10*3/uL (140-440); RBC 4.45 X 10*6/uL (4.10-5.20); RDW 17.3 % (11.5-14.5); WBC 9.08 X 10*3/uL (4.50-10.00)
[2020-08-29] MEDS ORDERED: LORazepam 2 MG/ML INJ IV PRN (10:21)
[2020-08-29 11:26] LABS: African American GFR (CKD) 136.9 (60.0-200.0); Calcium 8.5 mg/dL (8.7-10.3); Magnesium 1.7 mg/dL (1.5-2.4); Non-African American GFR(CKD) 118.1 (60.0-200.0); Phosphorus 2.8 mg/dL (2.4-5.1); Potassium 4.1 mmol/L (3.5-5.5)
[2020-08-29] MEDS ORDERED: DEXAMETHASONE SOD PHOSPHATE 4 MG/ML 1 ML VIAL IV SCH (12:00)
--- NOTE | 2020-08-29 12:24 | FL ---
EXAMINATION TYPE: FL UGI DATE OF EXAM: 08/29/2020 COMPARISON: Upper GI 04/13/2016, CT abdomen and pelvis 08/01/2017 HISTORY: Postoperative bariatric gastric sleeve TECHNIQUE: A single/double contrast UGI study is performed. A total of 48 seconds of fluoroscopic t daron was utilized during procedure and multiple fluoroscopic and 2 static images obtained. FINDINGS: The esophagus shows normal motility and emptying into the stomach. There is passage into the gastric sleeve and into the remainder of the stomach without delay. There is however delay of contrast into t he duodenum which is not seen after 30 minutes. This may be due to severe gastroparesis or gastric ou tlet obstruction. Clinical correlation is recommended. IMPRESSION: 1. No delay in emptying into the gastric sleeve and the distal stomach. There is however no contrast seen within the proximal duodenum after 30 minutes. This may be due to severe gastroparesis or gastri c outlet obstruction. Clinical correlation is recommended.
[2020-08-29 14:30] VITALS: BP 120/77; PULSE 93; TEMP 98.1; BMI 42.5
--- NOTE | 2020-08-29 15:34 | P.DS ---
Providers Date of admission: 08/28/20 07:06 Expected date of discharge: 08/29/20 Attending physician: Nilo Romo Consults: 08/28/20 10:28 Consult Physician Routine Consulting Provider: Eric Manley Consult Reason/Comments: Medical management Do you want consulting provider notified?: Yes Primary care physician: Eric Manley [place] [facility] Course: Discharge diagnosis 1. Morbid obesity status post laparoscopic sleeve gastrectomy Hospital course This is a 35-year-old female with morbid obesity she is status post laparoscopic sleeve gastrectomy. Patient reports that her pain is controlled. Denies any nausea or vomiting. Denies any difficulty swallowing. She is tolerating bariatric clear liquid diet. She is having flatus. She is urinating without difficulty. She is afebrile. She has been up and ambulating. Upper GI showed no delay in emptying into the gastric sleeve and distal stomach. There is however no contrast seen within the proximal duodenal after 30 minutes. This may be due to severe gastroparesis or gastric outlet obstruction. Patient given a dose of IV Decadron. And has been tolerating liquid diet without a or nausea and vomiting. Patient would like to be discharge. She is stable for discharge. Please refer to chart for any further details. Please note that patient was seen and examined with Dr. Romo. Physician Blood Bank Supervisor note has been reviewed by physician. Signing provider agrees with the documented findings, assessment, and plan of care. Patient Condition at Discharge: Stable Plan - Discharge Summary Discharge Rx Participant: Yes New Discharge Prescriptions: New bisacodyL [Dulcolax] 5 mg PO DAILY PRN #10 tablet.dr PRN Reason: Constipation Simethicone 40 mg/0.6 ml Drops [Mylicon Drops] 40 mg PO PCHS PRN #30 ml PRN Reason: Gas Ondansetron Odt [Zofran Odt] 4 mg PO Q8HR PRN #9 tab PRN Reason: Nausea HYDROcodone/APAP [[place] Elixir 7.5-325Mg/15Ml] 15 ml PO Q6HR PRN 3 Days #180 ml PRN Reason: Pain Continue ALPRAZolam [Xanax] 1 mg PO DAILY PRN PRN Reason: Anxiety Escitalopram [Lexapro] 20 mg PO DAILY Omeprazole 20 mg PO DAILY Loperamide [Imodium] 4 mg PO DIRECTED PRN PRN Reason: Diarrhea Discharge Medication List ALPRAZolam [Xanax] 1 mg PO DAILY PRN 04/24/15 [History] Escitalopram [Lexapro] 20 mg PO DAILY 03/11/20 [History] Omeprazole 20 mg PO DAILY 03/11/20 [History] Loperamide [Imodium] 4 mg PO DIRECTED PRN 04/16/20 [History] HYDROcodone/APAP [[place] Elixir 7.5-325Mg/15Ml] 15 ml PO Q6HR PRN 3 Days #180 ml 08/29/20 [Rx] Ondansetron Odt [Zofran Odt] 4 mg PO Q8HR PRN #9 tab 08/29/20 [Rx] Simethicone 40 mg/0.6 ml Drops [Mylicon Drops] 40 mg PO PCHS PRN #30 ml 08/29/20 [Rx] bisacodyL [Dulcolax] 5 mg PO DAILY PRN #10 tablet. 08/29/20 [Rx] Follow up Appointment(s)/Referral(s): Eric Manley DO [Primary Care Provider] - 09/09/20 1:00 pm Bariatric [place], [place] [NON-STAFF] - 08/30/20 11:30 am Patient Instructions/Handouts: Nutrition after Bariatric Surgery (DC), Nutrition after Bariatric Surgery (GEN), Laparoscopic Sleeve Gastrectomy (DC), Laparoscopic Sleeve Gastrectomy (GEN) Activity/Diet/Wound Care/Special Instructions: No driving while taking [place] No lifting over 10 pounds You may shower. No soaking or tub baths for 2 weeks Very light activity until you are reevaluated at your follow up appointment with your surgeon Discharge Disposition: HOME SELF-CARE
--- NOTE | 2020-08-29 18:09 | P.CONS ---
History of Present Illness - Reason for Consult Consult date: 08/29/20 Medical management seasonal ALLERGIES, anxiety Requesting physician: Nilo Romo - Chief Complaint Obesity status post laparoscopic sleeve gastrectomy - History of Present Illness This is a 35-year-old female with morbid obesity status post laparoscopic sleeve gastrectomy. Tolerated procedure well. Reports burping, denies passing gas or bowel movement. Laparoscopic dressing sites with shadowing, binder present. Swallowing evaluation pending. Denies nausea or vomiting. Denies chest pain, palpitations or shortness of breath. Using incentive spirometer. Review of Systems Constitutional: Denied any fatigue denied any fever. Cardio vascular: denied any chest pain, palpitations Gastrointestinal denied any nausea vomiting Pulmonary: Denied any shortness of breath cough Neurologic denied any new focal deficits ROS Statement: Those systems with pertinent positive or pertinent negative responses have been documented in the HPI. ROS Other: All systems not noted in ROS Statement are negative. Past Medical History Past Medical History: GERD/Reflux Additional Past Medical History / Comment(s): IBS, mainly diarrhea, seasonal allergies History of Any Multi-Drug Resistant Organisms: None Reported Past Surgical History: Cholecystectomy Additional Past Surgical History / Comment(s): colonoscopies, EGD. Past Anesthesia/Blood Transfusion Reactions: No Reported Reaction Past Psychological History: Anxiety Smoking Status: Never smoker Past Alcohol Use History: None Reported Past Drug Use History: Marijuana Additional Drug Use History / Comment(s): 1-2 times week - Past Family History Mother Family Medical History: No Reported History Medications and Allergies Home Medications Medication Instructions Recorded Confirmed Type ALPRAZolam [Xanax] 1 mg PO DAILY PRN 04/24/15 08/28/20 History Escitalopram [Lexapro] 20 mg PO DAILY 03/11/20 08/28/20 History Omeprazole 20 mg PO DAILY 03/11/20 08/28/20 History Loperamide [Imodium] 4 mg PO DIRECTED PRN 04/16/20 08/28/20 History HYDROcodone/APAP [[place] Elixir 15 ml PO Q6HR PRN 3 Days #180 ml 08/29/20 Rx 7.5-325Mg/15Ml] Ondansetron Odt [Zofran Odt] 4 mg PO Q8HR PRN #9 tab 08/29/20 Rx Simethicone 40 mg/0.6 ml Drops 40 mg PO PCHS PRN #30 ml 08/29/20 Rx [Mylicon Drops] bisacodyL [Dulcolax] 5 mg PO DAILY PRN #10 tablet. 08/29/20 Rx Allergies Allergy/AdvReac Type Severity Reaction Status Date / Time fluconazole [From Diflucan] Allergy Rash/Hives Verified 08/28/20 07:31 sulfamethoxazole AdvReac Intermediate Nausea Verified 08/28/20 07:31 [From Bactrim] trimethoprim [From Bactrim] AdvReac Intermediate Nausea Verified 08/28/20 07:31 Physical Exam Vitals: Vital Signs Temp Pulse Pulse Resp BP BP Pulse Ox 08/29/20 08:00 98.2 F 74 16 103/70 98 08/29/20 07:40 76 08/29/20 07:31 72 08/29/20 01:58 98.2 F 90 16 111/75 97 08/28/20 20:00 86 18 08/28/20 19:10 97.6 F 86 18 128/84 98 08/28/20 16:57 86 08/28/20 16:48 83 97 08/28/20 14:00 97.6 F 77 18 140/96 96 08/28/20 13:00 88 18 117/75 99 08/28/20 12:30 98 16 167/94 98 08/28/20 12:15 100 16 145/79 99 08/28/20 11:45 91 16 163/86 98 08/28/20 11:30 98 16 160/85 98 08/28/20 11:15 97 16 160/85 98 08/28/20 11:00 86 16 154/94 98 08/28/20 10:45 93 16 152/77 97 08/28/20 10:34 99 F 95 16 174/81 98 Intake and Output 08/28/20 08/29/20 08/29/20 22:59 06:59 14:59 Intake Total 1400 Output Total 700 Balance 700 Intake: Intake, IV Titration 1400 Amount 0.9% NaCl with KCl 20 Meq 1000 /l 1,000 ml @ 150 mls/hr IV .Q6H40M [facility] Rx#: [id number] Mvi, Adult No.4 with Vit 300 K 10 ml Thiamine 100 mg Folic Acid 1 mg Potassium Chloride 20 meq In Sodium Chloride 0.9% 1, 000 ml @ 100 mls/hr IV . BY DURATION [facility] Rx#: [id number] ceFAZolin 3 gm In Sodium 100 Chloride 0.9% 100 ml @ 200 mls/hr IVPB Q8H [facility] Rx#:[id number] Output: Urine 700 Other: Voiding Method Toilet # Voids 2 4 PHYSICAL EXAM: VITAL SIGNS: As above GENERAL: Sitting up in bed, no acute distress HEENT: Conjunctivae normal. eyes normal. NECK: No JVD. No thyroid enlargement. No LNs CARDIOVASCULAR: S1, S2 regular. No murmur RESPIRATION: Breath sounds diminished in the bases. No rhonchi or crackles. No bronchial breathing. ABDOMEN: Soft, status post surgery, laparoscopic dressings sites with shadowing. Binder present. No guarding. Bowel sounds heard. LEGS: No edema. no swelling PSYCHIATRY: Alert and oriented X3, mood and affect normal. NERVOUS SYSTEM: Cranial N 2-12 grossly normal. Moves all 4 limbs. No focal deficits. Strength and sensation grossly intact.. Skin: Warm and dry, no rash Results CBC & Chem 7: 08/29/20 06:24 08/29/20 06:24 Assessment and Plan Assessment: Obesity, status post laparoscopic sleeve gastrectomy, BMI 42.5 Gastroesophageal reflux disease IBS Seasonal ALLERGIES Anxiety Plan: Continue on current medication regime ,monitoring and symptomatic treatment. Swallowing evaluation pending. Increase ambulation as tolerated. Aggressive pulmonary toileting with incentive spirometer reinforced. Discharge planning as per surgery. Follow-up with PCP in [address] Romo for the consult. The impression and plan of care has been dictated as directed. : I performed a history and examination of this patient, discussed the same with the dictator. I agree with the dictator's note ,documented as a scribe. Any additional findings or plans will be noted.
[2020-08-30] MEDS ORDERED: bisacodyL 5 MG TABLET.DR PO PRN (08:00)
== END 2020-08-29 16:37 | disposition home or self-care (01) | DRG 621 ==
LOC: 2ORMAIN 07:06 → 4SSUR 12:44
PROVIDERS: ADMIT Surgery; ATTEND Surgery
PROC: 0DB64Z3 Excision of Stomach, Percutaneous Endoscopic Approach, Vertical (ICD-10-PCS; principal; 2020-08-28 09:10)
DX: E66.01 Morbid (severe) obesity due to excess calories (principal); Z68.41 Body mass index [BMI] 40.0-44.9, adult; F41.9 Anxiety disorder, unspecified; K21.9 Gastro-esophageal reflux disease without esophagitis; J30.2 Other seasonal allergic rhinitis; K58.0 Irritable bowel syndrome with diarrhea; Z79.899 Other long term (current) drug therapy; Z90.49 Acquired absence of other specified parts of digestive tract; Z87.19 Personal history of other diseases of the digestive system; Z98.890 Other specified postprocedural states; Z88.2 Allergy status to sulfonamides; Z88.8 Allergy status to other drugs, medicaments and biological substances
CPT/HCPCS: 74240; 80051; 81025; 82310; 82565; 83735; 84100; 84520; 85025; 88307; 94640

== ENCOUNTER → 2020-09-09 | Outpatient (CLI) | payer OTHER ==
[2020-09-09 14:58] VITALS: BMI 40.7
[2020-09-09 15:01] VITALS: BP 104/72; PULSE 79; RESP 18; TEMP 97.8
--- NOTE | 2020-09-09 16:09 | P.HPBAR ---
Bariatric H&P - History & Physicial H&P Date: 09/09/20 History & Physicial: Visit/CC: follow up Patient initial contact: Initial weight: Initial weight in pounds: Height: 5 ft 7 in Initial BMI: Last weight: Current weight: 117.934 kg Current weight in pounds: 260.00 Current BMI: 40.7 [place] body weight (based on NIH guidelines): 61.235 kg Excess body weight loss: The patient is a 35 year-old F who presents for Bariatric Assessment. Patient presents today for sleeve gastrectomy full. She's had some mild GERD. She has had excellent Weight loss. Past Medical History Past Medical History: GERD/Reflux Additional Past Medical History / Comment(s): IBS, mainly diarrhea, seasonal allergies History of Any Multi-Drug Resistant Organisms: None Reported Past Surgical History: Bariatric Surgery, Cholecystectomy Additional Past Surgical History / Comment(s): colonoscopies, EGD. 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 Past Anesthesia/Blood Transfusion Reactions: No Reported Reaction Past Psychological History: Anxiety Smoking Status: Never smoker Past Alcohol Use History: None Reported Past Drug Use History: Marijuana Additional Drug Use History / Comment(s): 1-2 times week - Past Family History Mother Family Medical History: No Reported History Surgical - Exam Vital Signs Temp Pulse Resp BP 97.8 F 79 18 104/72 09/09/20 14:41 09/09/20 14:41 09/09/20 14:41 09/09/20 14:41 - General well developed, well nourished, no distress - Eyes PERRL - ENT normal pinna - Neck no masses - Respiratory normal expansion - Cardiovascular Rhythm: regular - Abdomen Abdomen: soft, non tender Bariatric Assessment & Plan Plan: Status post sleeve gastrectomy. The patient's girth is minimal and will be observed. Bariatric Checklist Checklist: Plan: Checklist: EGD: 1. Hiatal hernia: 2. H. Pylori: HgbA1c: Vitamin D: Smoking: Never smoker Primary care physician referral: Dr. lind Psychiatry clearance: Cardiology clearance: Sleep study: Diet journal: VTE risk score: VTE risk level: Rehab needs at discharge:
== END | disposition home or self-care (01) ==
LOC: BARWHC3 14:25
PROVIDERS: ATTEND Surgery
DX: E66.01 Morbid (severe) obesity due to excess calories (principal); K21.9 Gastro-esophageal reflux disease without esophagitis; Z68.41 Body mass index [BMI] 40.0-44.9, adult; Z90.49 Acquired absence of other specified parts of digestive tract; Z98.84 Bariatric surgery status; Z86.59 Personal history of other mental and behavioral disorders
CPT/HCPCS: 97803; 99211

== ENCOUNTER → 2020-09-23 | Outpatient (CLI) | payer OTHER ==
[2020-09-23 14:49] VITALS: BP 111/75; PULSE 80; RESP 18; TEMP 98.6; BMI 40.4
--- NOTE | 2020-09-23 15:18 | P.HPBAR ---
Bariatric H&P - History & Physicial H&P Date: 09/23/20 History & Physicial: Visit/CC: follow up Patient initial contact: Initial weight: Initial weight in pounds: Height: 5 ft 7 in Initial BMI: Last weight: Current weight: 117.027 kg Current weight in pounds: 258.00 Current BMI: 40.4 [place] body weight (based on NIH guidelines): 61.235 kg Excess body weight loss: The patient is a 35 year-old F who presents for Bariatric Assessment. Patient presents today for bariatric follow. She's had some mild GERD. Past Medical History Past Medical History: GERD/Reflux Additional Past Medical History / Comment(s): IBS, mainly diarrhea, seasonal allergies History of Any Multi-Drug Resistant Organisms: None Reported Past Surgical History: Bariatric Surgery, Cholecystectomy Additional Past Surgical History / Comment(s): colonoscopies, EGD. 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 Past Anesthesia/Blood Transfusion Reactions: No Reported Reaction Smoking Status: Never smoker - Past Family History Mother Family Medical History: No Reported History Surgical - Exam Vital Signs Temp Pulse Resp BP 98.6 F 80 18 111/75 09/23/20 14:46 09/23/20 14:46 09/23/20 14:46 09/23/20 14:46 - General well developed, well nourished, no distress - Eyes PERRL - ENT normal pinna - Neck no masses - Respiratory normal expansion - Cardiovascular Rhythm: regular - Abdomen Abdomen: soft, non tender Bariatric Assessment & Plan Plan: Status post sleeve gastric. Patient's girth is minimal observed. She'll follow-up in 4 weeks. Bariatric Checklist Checklist: Plan: Checklist: EGD: 1. Hiatal hernia: 2. H. Pylori: HgbA1c: Vitamin D: Smoking: Never smoker Primary care physician referral: Dr. lind Psychiatry clearance: Cardiology clearance: Sleep study: Diet journal: VTE risk score: VTE risk level: Rehab needs at discharge:
== END | disposition home or self-care (01) ==
LOC: BARWHC3 14:14
PROVIDERS: ATTEND Surgery
DX: E66.01 Morbid (severe) obesity due to excess calories (principal); Z71.3 Dietary counseling and surveillance; Z68.41 Body mass index [BMI] 40.0-44.9, adult; Z98.84 Bariatric surgery status; Z90.49 Acquired absence of other specified parts of digestive tract
CPT/HCPCS: 97803; 99211

== ENCOUNTER → 2020-09-26 | Outpatient (CLI) | payer OTHER ==
[2020-09-26 19:13] LABS: HCT 42.7 % (37.2-46.3); HGB 12.9 g/dL (12.0-15.0); MCH 25.9 pg (27.0-32.0); MCHC 30.2 g/dL (32.0-37.0); MCV 85.7 fL (80.0-97.0); Mean Platelet Volume 10.8 fL (9.5-12.2); Platelet Count 244 X 10*3/uL (140-440); RBC 4.98 X 10*6/uL (4.10-5.20); RDW 18.6 % (11.5-14.5); WBC 7.84 X 10*3/uL (4.50-10.00)
[2020-09-27 02:58] LABS: % Iron Saturation 9.91 (12.00-45.00); African American GFR (CKD) 110.7 (60.0-200.0); Albumin 3.9 g/dL (3.80-4.90); Albumin/Globulin Ratio 1.95 (1.60-3.17); Anion Gap 9.6 mmol/L (4.00-12.00); BUN/Creat Ratio 11.25 Ratio (12.00-20.00); Calcium 8.8 mg/dL (8.7-10.3); Carbon Dioxide 25.4 mmol/L (21.6-31.8); Non-African American GFR(CKD) 95.5 (60.0-200.0); Potassium 3.8 mmol/L (3.5-5.5); Total Bilirubin 0.4 mg/dL (0.3-1.2); Total Protein 5.9 g/dL (6.2-8.2)
[2020-09-27 03:07] LABS: Ferritin 22.3 ng/mL (10.0-291.0)
[2020-09-27 11:15] LABS: Folate, Serum 3.3 ng/mL
[2020-09-27 12:38] LABS: Zinc, Serum 57 ug/dL (60-130)
[2020-09-30 06:35] LABS: Vitamin A 37 ug/dL (38-106)
[2020-09-30 09:14] LABS: Vit B1(Thiamine) 49 ug/L (38-122)
[2020-10-02 16:24] LABS: Selenium 119 mcg/L (63-160)
== END | disposition home or self-care (01) ==
LOC: LABWHC1 15:17
PROVIDERS: ATTEND Surgery
DX: E66.01 Morbid (severe) obesity due to excess calories (principal); D50.8 Other iron deficiency anemias; E44.0 Moderate protein-calorie malnutrition; E55.9 Vitamin D deficiency, unspecified; T56.894A Toxic effect of other metals, undetermined, initial encounter
CPT/HCPCS: 36415; 80053; 82607; 82728; 82746; 83540; 83550; 83735; 84255; 84425; 84443; 84590; 84630; 85027

== ENCOUNTER 2021-02-11 10:51 | Emergency (ER) | payer OTHER ==
[2021-02-11 10:55] VITALS: TEMP 98.9
--- NOTE | 2021-02-11 11:29 | ED ---
General Adult HPI - General Chief complaint: Chest Pain Stated complaint: chest pain Time Seen by Provider: 02/11/21 10:55 Source: patient, RN notes reviewed, old records reviewed Mode of arrival: ambulatory Limitations: no limitations - History of Present Illness Initial comments: Is a 35-year-old female presents emergency room with a past medical history significant for anxiety. Patient states she's been having some chest heaviness on and off all week long. Patient states is very indicative of her anxiety but normally it eventually subsides. Patient states she took Xanax twice a day and it really didn't help her much she continues to have the heaviness and it does go away but it returns. Patient denies any difficulty breathing shortness of breath per patient denies any sweating. Patient denies any nausea or vomiting. Patient states she does not have diabetes high blood pressure or high cholesterol. Patient denies any smoking history. Patient denies any swelling to legs or calf tenderness. Patient denies any recent fever chills or cough. - Related Data Home Medications Medication Instructions Recorded Confirmed Escitalopram [Lexapro] 20 mg PO DAILY 03/11/20 02/11/21 Loperamide [Imodium] 4 mg PO QID PRN 04/16/20 02/11/21 ALPRAZolam [Xanax] 1 mg PO Q8H PRN 02/11/21 02/11/21 Cholecalciferol [Vitamin D3 (125 125 mcg PO DAILY 02/11/21 02/11/21 Mcg = 5000 Iu)] Cyanocobalamin (Vitamin B-12) 1,000 mcg PO DAILY 02/11/21 02/11/21 [Vitamin B-12] Fluocinonide 0.05% Topical Solution 1 applic TOPICAL HS PRN 02/11/21 02/11/21 Iron(Unknown) 1 tab PO DAILY 02/11/21 02/11/21 Ketoconazole 2% Shampoo [Nizoral] 1 applic TOPICAL Q48H PRN 02/11/21 02/11/21 Multivitamins, Thera [Multivitamin 1 tab PO DAILY 02/11/21 02/11/21 (formulary)] Naproxen 500 mg PO BID PRN 02/11/21 02/11/21 Omeprazole 40 mg PO DAILY 02/11/21 02/11/21 Vitamin A(Unknown) 1 cap PO DAILY 02/11/21 02/11/21 Zinc 50 mg PO DAILY 02/11/21 02/11/21 Allergies Allergy/AdvReac Type Severity Reaction Status Date / Time fluconazole [From Diflucan] Allergy Rash/Hives Verified 02/11/21 12:20 sulfamethoxazole AdvReac Intermediate Nausea Verified 02/11/21 12:20 [From Bactrim] trimethoprim [From Bactrim] AdvReac Intermediate Nausea Verified 02/11/21 12:20 Review of Systems ROS Statement: Those systems with pertinent positive or pertinent negative responses have been documented in the HPI. ROS Other: All systems not noted in ROS Statement are negative. Past Medical History Past Medical History: GERD/Reflux Additional Past Medical History / Comment(s): IBS, mainly diarrhea, seasonal allergies History of Any Multi-Drug Resistant Organisms: None Reported Past Surgical History: Bariatric Surgery, Cholecystectomy Additional Past Surgical History / Comment(s): colonoscopies, EGD. 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 Patient is nontoxic and well- hydrated and is in mild distress. ENT: Neck is soft and supple. No significant lymphadenopathy is noted. Oropharynx is clear. Moist mucous membranes. Neck has full range of motion without eliciting any pain. EYES: The sclera were anicteric and conjunctiva were pink and moist. Extraocular movements were intact and pupils were equal round and reactive to light. Eyelids were unremarkable. PULMONARY: Unlabored respirations. Good breath sounds bilaterally. No audible rales rhonchi or wheezing was noted. CARDIOVASCULAR: There is a regular rate and rhythm without any murmurs gallops or rubs. Chest pain is also somewhat reproducible. ABDOMEN: Soft and nontender with normal bowel sounds. SKIN: Skin is clear with no lesions or rashes and otherwise unremarkable. NEUROLOGIC: Patient is alert and oriented x3. Cranial nerves II through XII are grossly intact. Motor and sensory are also intact. Normal speech, volume and content. Symmetrical smile. MUSCULOSKELETAL: Normal extremities with adequate strength and full range of motion. LYMPHATICS: No significant lymphadenopathy is noted PSYCHIATRIC: Patient appears to be very anxious. Limitations: no limitations Course Vital Signs 02/11/21 10:52 Temperature 98.9 F Pulse Rate 77 Respiratory 16 Rate Blood Pressure 120/87 O2 Sat by Pulse 99 Oximetry Medical Decision Making - Medical Decision Making Patient's EKG shows normal sinus rhythm at [address] interval 124 tresses 72 QT interval 374 QTC is 412 per patient's EKG shows no ST segment elevation or depression. Patient's chest x-ray shows no acute normalities. Patient received Ativan the emergency department was feeling considerably better after that. Patient states she'll follow-up with her physician to see if she needs to change her medications for her anxiety. - Lab Data Result diagrams: 02/11/21 11:34 02/11/21 11:34 Lab Results 02/11/21 02/11/21 02/11/21 Range/Units 11:34 11:34 11:34 WBC 11.2 H (3.8-10.6) k/uL RBC 4.91 (3.80-5.40) m/uL Hgb 13.8 (11.4-16.0) gm/dL Hct 42.8 (34.0-46.0) % MCV 87.1 (80.0-100.0) fL MCH 28.1 (25.0-35.0) pg MCHC 32.3 (31.0-37.0) g/dL RDW 16.2 H (11.5-15.5) % Plt Count 289 (150-450) k/uL MPV 7.0 Neutrophils % 75 % Lymphocytes % 17 % Monocytes % 4 % Eosinophils % 3 % Basophils % 0 % Neutrophils # 8.4 H (1.3-7.7) k/uL Lymphocytes # 1.9 (1.0-4.8) k/uL Monocytes # 0.5 (0-1.0) k/uL Eosinophils # 0.4 (0-0.7) k/uL Basophils # 0.0 (0-0.2) k/uL Anisocytosis Slight Sodium 135 L (137-145) mmol/L Potassium 4.5 (3.5-5.1) mmol/L Chloride 105 (98-107) mmol/L Carbon Dioxide 25 (22-30) mmol/L Anion Gap 5 mmol/L BUN 15 (7-17) mg/dL Creatinine 0.62 (0.52-1.04) mg/dL Est GFR (CKD-EPI)AfAm >90 (>60 ml/min/1.73 sqM) Est GFR (CKD-EPI)NonAf >90 (>60 ml/min/1.73 sqM) Glucose 92 (74-99) mg/dL Calcium 9.3 (8.4-10.2) mg/dL Total Bilirubin 0.3 (0.2-1.3) mg/dL AST 24 (14-36) U/L ALT 20 (4-34) U/L Alkaline Phosphatase 75 (38-126) U/L Troponin I <0.012 (0.000-0.034) ng/mL Total Protein 6.4 (6.3-8.2) g/dL Albumin 3.7 (3.5-5.0) g/dL Disposition Clinical Impression: Anxiety Disposition: HOME SELF-CARE Condition: Good Instructions (If sedation given, give patient instructions): Anxiety (ED) Is patient prescribed a controlled substance at d/c from ED?: No Referrals: Eric Manley DO [Primary Care Provider] - 1-2 days Time of Disposition: 13:14
[2021-02-11 11:39] LABS: Anisocytosis Slight; Basophils % (A) 0 %; Eosinophils # (A) 0.4 k/uL (0-0.7); Eosinophils % (A) 3 %; HCT 42.8 % (34.0-46.0); HGB 13.8 gm/dL (11.4-16.0); Lymphocytes # (A) 1.9 k/uL (1.0-4.8); Lymphocytes % (A) 17 %; MCH 28.1 pg (25.0-35.0); MCHC 32.3 g/dL (31.0-37.0); MCV 87.1 fL (80.0-100.0); Monocytes # (A) 0.5 k/uL (0-1.0); Monocytes % (A) 4 %; Neutrophils # (A) 8.4 k/uL (1.3-7.7); Neutrophils % (A) 75 %; Platelet Count 289 k/uL (150-450); RBC 4.91 m/uL (3.80-5.40); RDW 16.2 % (11.5-15.5); WBC 11.2 k/uL (3.8-10.6)
--- NOTE | 2021-02-11 11:51 | XR ---
EXAMINATION TYPE: XR chest 2V DATE OF EXAM: 02/11/2021 COMPARISON: NONE TECHNIQUE: PA and lateral views submitted. HISTORY: Chest pain FINDINGS: The lungs are clear and there is no pneumothorax, pleural effusion, or focal pneumonia. Heart size n ormal. No overt failure. Subsegmental changes lung bases. Hypertrophic degenerative change of the spi ne. IMPRESSION: 1. Subsegmental linear changes lung bases more typical of atelectasis than pneumonia correlate clinic ally.
[2021-02-11 11:57] LABS: ALT 20 U/L (4-34); AST 24 U/L (14-36); African American GFR (CKD) >90 (>60 ml/min/1.73 sqM); Albumin 3.7 g/dL (3.5-5.0); Alkaline Phosphatase 75 U/L (38-126); Anion Gap 5 mmol/L; Blood Urea Nitrogen 15 mg/dL (7-17); Calcium 9.3 mg/dL (8.4-10.2); Carbon Dioxide 25 mmol/L (22-30); Chloride 105 mmol/L (98-107); Glucose 92 mg/dL (74-99); Non-African American GFR(CKD) >90 (>60 ml/min/1.73 sqM); Potassium 4.5 mmol/L (3.5-5.1); Sodium 135 mmol/L (137-145); Total Bilirubin 0.3 mg/dL (0.2-1.3); Total Protein 6.4 g/dL (6.3-8.2)
[2021-02-11] MEDS ORDERED: LORazepam 2 MG/ML INJ IV STA (12:24)
[2021-02-11 13:18] VITALS: BP 117/86; PULSE 78; RESP 18
== END 2021-02-11 13:22 | disposition home or self-care (01) ==
LOC: EC 10:51
DX: F41.9 Anxiety disorder, unspecified (principal); K21.9 Gastro-esophageal reflux disease without esophagitis; Z88.2 Allergy status to sulfonamides; Z88.1 Allergy status to other antibiotic agents; Z79.899 Other long term (current) drug therapy
CPT/HCPCS: 36415; 93005; 80053; 84484; 85025; 71046; 99285; 96374; J2060

== ENCOUNTER → 2021-03-10 | Outpatient (CLI) | payer OTHER ==
[2021-03-10 14:44] VITALS: BP 122/86; PULSE 88; RESP 18; TEMP 98.3; BMI 38.2
--- NOTE | 2021-03-11 09:59 | P.HPBAR ---
Bariatric H&P - History & Physicial H&P Date: 03/10/21 History & Physicial: Visit/CC: follow up Patient initial contact: Initial weight: Initial weight in pounds: Height: 5 ft 7 in Initial BMI: Last weight: Current weight: 110.677 kg Current weight in pounds: 244.00 Current BMI: 38.2 [place] body weight (based on NIH guidelines): 61.235 kg Excess body weight loss: The patient is a 35 year-old F who presents for Bariatric Assessment. Patient presents today for bariatric follow. She is not complete.. She's had excellent weight loss. Past Medical History Past Medical History: GERD/Reflux Additional Past Medical History / Comment(s): IBS, mainly diarrhea, seasonal allergies History of Any Multi-Drug Resistant Organisms: None Reported Past Surgical History: Bariatric Surgery, Cholecystectomy Additional Past Surgical History / Comment(s): colonoscopies, EGD. 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 Past Anesthesia/Blood Transfusion Reactions: No Reported Reaction Past Psychological History: Anxiety Smoking Status: Never smoker Past Alcohol Use History: None Reported Past Drug Use History: None Reported Additional Drug Use History / Comment(s): 1-2 times week - Past Family History Mother Family Medical History: No Reported History Surgical - Exam Vital Signs Temp Pulse Resp BP 98.3 F 88 18 122/86 03/10/21 14:37 03/10/21 14:37 03/10/21 14:37 03/10/21 14:37 - General well developed, well nourished, no distress - Eyes PERRL - ENT normal pinna - Neck no masses - Respiratory normal expansion - Cardiovascular Rhythm: regular - Abdomen Abdomen: soft, non tender Bariatric Assessment & Plan Plan: Patient's GERD is minimal will be observed. Her obesity is improving. She'll follow-up in 8 weeks. Bariatric Checklist Checklist: Plan: Checklist: EGD: 1. Hiatal hernia: 2. H. Pylori: HgbA1c: Vitamin D: Smoking: Never smoker Primary care physician referral: Dr. lind Psychiatry clearance: Cardiology clearance: Sleep study: Diet journal: VTE risk score: VTE risk level: Rehab needs at discharge:
== END | disposition home or self-care (01) ==
LOC: BARWHC3 14:33
PROVIDERS: ATTEND Surgery
DX: K21.9 Gastro-esophageal reflux disease without esophagitis (principal); E66.9 Obesity, unspecified
CPT/HCPCS: 99211

== ENCOUNTER 2022-06-02 03:29 | Emergency (ER) | payer OTHER ==
[2022-06-02] MEDS ORDERED: METOCLOPRAMIDE 5 MG/ML 2 ML VIAL IVP STA (06:30)
[2022-06-02] MEDS ORDERED: DEXAMETHASONE SOD PHOSPHATE 10 MG/ML 1 ML VIAL IVP STA (06:30)
[2022-06-02] MEDS ORDERED: KETOROLAC 15 MG/ML 1 ML VIAL IVP STA (06:30)
[2022-06-02] MEDS ORDERED: diphenhydrAMINE 50 MG/ML 1 ML VIAL IVP STA (06:30)
[2022-06-02] MEDS ORDERED: SODIUM CHLORIDE 0.9% 1,000 ML IV STA (06:30)
--- NOTE | 2022-06-02 06:54 | ED ---
Headache HPI - General Chief Complaint: Headache Stated Complaint: Vomiting, Headache Time Seen by Provider: 06/02/22 06:21 Source: patient, family, RN notes reviewed Mode of arrival: wheelchair Limitations: no limitations - History of Present Illness Initial Comments: This is a 36-year-old female who presents to the emergency department with a headache. Patient states that she was started on Augmentin a week ago for a sinus infection. That has improved other than some residual congestion. However she has had intermittent headaches over the course of the last week. She has a history of headaches, however they are not usually this severe or this frequent. This morning at 2:30 AM, she was suddenly woken up by a severe headache. Unsure if this was the worst headache of her life. Reports associated pain and pressure behind the left eye. She also has nausea, vomiting, and photophobia. She's tried taking [id number] Midol, Advil, and Tylenol with no relief in symptoms. Denies any fevers, chills, sore throat, cough, dyspnea, chest pain, palpitations, abdominal pain, diarrhea, or back pain. MD Complaint: headache Onset Description: "thunderclap" Location: left, frontal, temporal Quality: worst headache of life Associated Symptoms: nausea, vomiting, photophobia - Related Data Home Medications Medication Instructions Recorded Confirmed Escitalopram [Lexapro] 30 mg PO DAILY 03/11/20 03/10/21 Loperamide [Imodium] 4 mg PO QID PRN 04/16/20 03/10/21 ALPRAZolam [Xanax] 1 mg PO Q8H PRN 02/11/21 03/10/21 Cholecalciferol [Vitamin D3 (125 125 mcg PO DAILY 02/11/21 03/10/21 Mcg = 5000 Iu)] Cyanocobalamin (Vitamin B-12) 1,000 mcg PO DAILY 02/11/21 03/10/21 [Vitamin B-12] Fluocinonide 0.05% Topical Solution 1 applic TOPICAL HS PRN 02/11/21 03/10/21 Iron(Unknown) 1 tab PO DAILY 02/11/21 03/10/21 Ketoconazole 2% Shampoo [Nizoral] 1 applic TOPICAL Q48H PRN 02/11/21 03/10/21 Multivitamins, Thera [Multivitamin 1 tab PO DAILY 02/11/21 03/10/21 (formulary)] Naproxen 500 mg PO BID PRN 02/11/21 03/10/21 Omeprazole 40 mg PO DAILY 02/11/21 03/10/21 Vitamin A(Unknown) 1 cap PO DAILY 02/11/21 03/10/21 Zinc 50 mg PO DAILY 02/11/21 03/10/21 buPROPion HCL [Wellbutrin XL] 300 mg PO DAILY 02/11/21 03/10/21 Previous Rx's Medication Instructions Recorded Ketorolac [Toradol] 10 mg PO Q6HR PRN #12 tab 06/02/22 Ondansetron Odt [Zofran Odt] 4 mg PO Q8HR PRN #10 tab 06/02/22 Allergies Allergy/AdvReac Type Severity Reaction Status Date / Time fluconazole [From Diflucan] Allergy Rash/Hives Verified 06/02/22 04:55 sulfamethoxazole AdvReac Intermediate Nausea Verified 06/02/22 04:55 [From Bactrim] trimethoprim [From Bactrim] AdvReac Intermediate Nausea Verified 06/02/22 04:55 Review of Systems ROS Statement: Those systems with pertinent positive or pertinent negative responses have been documented in the HPI. ROS Other: All systems not noted in ROS Statement are negative. Past Medical History Past Medical History: GERD/Reflux Additional Past Medical History / Comment(s): IBS, mainly diarrhea, seasonal allergies History of Any Multi-Drug Resistant Organisms: None Reported Past Surgical History: Bariatric Surgery, Cholecystectomy Additional Past Surgical History / Comment(s): colonoscopies, EGD. 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 Absent: scleral icterus, conjunctival injection, periorbital swelling Neck exam: Present: normal inspection. Absent: tenderness, meningismus, lymphadenopathy Respiratory exam: Present: normal lung sounds bilaterally. Absent: respiratory distress, wheezes, rales, rhonchi, stridor Cardiovascular Exam: Present: regular rate, normal rhythm, normal heart sounds. Absent: systolic murmur, diastolic murmur, rubs, gallop, clicks Neurological exam: Present: alert, oriented X3, CN II-XII intact Psychiatric exam: Present: normal affect, normal mood Skin exam: Present: warm, dry, intact, normal color. Absent: rash Course Vital Signs 06/02/22 06/02/22 04:55 09:50 Temperature 97.9 F 97.3 F L Pulse Rate 85 75 Respiratory 16 18 Rate Blood Pressure 137/94 122/74 O2 Sat by Pulse 98 98 Oximetry Medical Decision Making - Medical Decision Making This is a 36-year-old female who presents to the emergency department for a headache. Was pt. sent in by a medical professional or institution? @ -No Did you speak to anyone other than the patient for history? @ -Her mother Did you review nursing and triage notes? @ -Yes, and I agree, it is accurate with regards to the patient's symptoms. Were old charts reviewed? @ -No Differential Diagnosis? @ -Differential Headache: Migraine, tension, cluster, carbon monoxide, central venous thrombosis, pension karma temporal arteritis, acute closure glaucoma, intercranial hemorrhage, mastoiditis, sinusitis, head injury, this is not meant to be an all-inclusive list. CT interpreted by me (1pt min.)? @ -Computed tomography scan of the brain and CT angiogram of the head and neck obtained. My interpretation identifies no evidence of intracranial hemorrhage, mass effect, ischemic changes, or aneurysm. What testing was considered but not performed? (CT, X-rays, U/S, labs)? Why? @ -None What meds were considered but not given? Why? @ -None Did you discuss the management of the patient with other professionals? @ -No Did you reconcile home meds? @ -No Was smoking cessation discussed for >3mins.? @ -No Was critical care preformed (if so, how long)? @ -No Were there social determinants of health that impacted care today? How? (Homelessness, low income, unemployed, alcoholism, drug addiction, transportation, low edu. Level, literacy, decrease access to med. care, alf, rehab)? @ -No Was there de-escalation of care discussed even if they declined? (Discuss DNR or withdrawal of care, Hospice)? @ -No What co-morbidities impacted this encounter? (DM, HTN, Smoking, COPD, CAD, Cancer, CVA, Hep., AIDS, mental health diagnosis, sleep apnea, morbid obesity)? @ -Morbid obesity, GERD Was patient admitted / discharged? @ -Discharged. Lab work obtained revealing leukocytosis and no other actionable findings. Inflammatory markers were negative. She was given a migraine cocktail consisting of IV fluids, Decadron, Reglan, Toradol, and Benadryl. States that this significantly improved her symptoms. Given that this may have been the worst headache of her life, computed tomography scan of the brain and CT angiogram of the head and neck were obtained. Imaging was obtained within the six-hour darvin. These revealed no acute findings. Patient was drinking Gatorade and eating crackers without any difficulty. States that her headache continues to improve and she requests discharge home. Prescription for Toradol and Zofran provided with dosing instructions reviewed in the event she has any residual symptoms. She is instructed to avoid any other [id number] anti- inflammatories with the Toradol. She is otherwise advised to continue with symptomatic management. She will follow up with her primary care provider to discuss if any additional testing or if a neurology referral is indicated. Undiagnosed new problem with uncertain prognosis? @ -None Drug Therapy requiring intensive monitoring for toxicity (Heparin, Nitro, I nsulin, Cardizem)? @ -None Were any procedures done? @ -None Diagnosis/symptom? @ -Headache Acute, or Chronic, or Acute on Chronic? @ -Acute Uncomplicated (without systemic symptoms) or Complicated (systemic symptoms)? @ -Uncomplicated Side effects of treatment? @ -None Exacerbation, Progression, or Severe Exacerbation] @ -Not applicable Poses a threat to life or bodily function? @ -No Return precautions reviewed in depth, the patient is instructed to return to the emergency department with any new, worsening, or concerning symptoms. Patient verbalized understanding. This case was discussed in detail with the attending ED physician, Dr. Langford. Presentation, findings, and treatment plan discussed in detail as well. - Lab Data Result diagrams: 06/02/22 06:52 06/02/22 06:52 Lab Results 06/02/22 06/02/22 06/02/22 Range/Units 06:41 06:41 06:41 WBC (3.8-10.6) k/uL RBC (3.80-5.40) m/uL Hgb (11.4-16.0) gm/dL Hct (34.0-46.0) % MCV (80.0-100.0) fL MCH (25.0-35.0) pg MCHC (31.0-37.0) g/dL RDW (11.5-15.5) % Plt Count (150-450) k/uL MPV Neutrophils % % Lymphocytes % % Monocytes % % Eosinophils % % Basophils % % Neutrophils # (1.3-7.7) k/uL Lymphocytes # (1.0-4.8) k/uL Monocytes # (0-1.0) k/uL Eosinophils # (0-0.7) k/uL Basophils # (0-0.2) k/uL Poikilocytosis ESR (0-20) mm/hr Sodium (137-145) mmol/L Potassium (3.5-5.1) mmol/L Chloride (98-107) mmol/L Carbon Dioxide (22-30) mmol/L Anion Gap mmol/L BUN (7-17) mg/dL Creatinine (0.52-1.04) mg/dL Est GFR (CKD-EPI)AfAm (>60 ml/min/1.73 sqM) Est GFR (CKD-EPI)NonAf (>60 ml/min/1.73 sqM) Glucose (74-99) mg/dL Calcium (8.4-10.2) mg/dL Total Bilirubin (0.2-1.3) mg/dL AST (14-36) U/L ALT (4-34) U/L Alkaline Phosphatase (38-126) U/L C-Reactive Protein (<1.0) mg/dL Total Protein (6.3-8.2) g/dL Albumin (3.5-5.0) g/dL Urine Color Light Yellow Urine Appearance Cloudy H (Clear) Urine pH 8.0 (5.0-8.0) Ur Specific [place] 1.015 (1.001-1.035) Urine Protein Negative (Negative) Urine Glucose (UA) Negative (Negative) Urine Ketones Negative (Negative) Urine Blood Negative (Negative) Urine Nitrite Negative (Negative) Urine Bilirubin Negative (Negative) Urine Urobilinogen <2.0 (<2.0) mg/dL Ur Leukocyte Esterase Moderate H (Negative) Urine RBC 1 (0-5) /hpf Urine WBC 5 (0-5) /hpf Ur Squamous Epith Cells 8 H (0-4) /hpf Amorphous Sediment Moderate H (None) /hpf Urine Mucus Rare H (None) /hpf Urine HCG, Qual Not Detected (Not Detectd) Urine Opiates Screen Not Detected (NotDetected) Ur Oxycodone Screen Not Detected (NotDetected) Urine Methadone Screen Not Detected (NotDetected) Ur Propoxyphene Screen Not Detected (NotDetected) Ur Barbiturates Screen Not Detected (NotDetected) U Tricyclic Antidepress Not Detected (NotDetected) Ur Phencyclidine Scrn Not Detected (NotDetected) Ur Amphetamines Screen Not Detected (NotDetected) U Methamphetamines Scrn Not Detected (NotDetected) U Benzodiazepines Scrn Not Detected (NotDetected) Urine Cocaine Screen Not Detected (NotDetected) U Marijuana (THC) Screen Detected H (NotDetected) Influenza Type A (PCR) (Not Detectd) Influenza Type B (PCR) (Not Detectd) RSV (PCR) (Not Detectd) SARS-CoV-2 (PCR) (Not Detectd) 06/02/22 06/02/22 06/02/22 Range/Units 06:52 06:52 06:52 WBC 15.8 H (3.8-10.6) k/uL RBC 5.01 (3.80-5.40) m/uL Hgb 13.7 (11.4-16.0) gm/dL Hct 40.5 (34.0-46.0) % MCV 80.9 (80.0-100.0) fL MCH 27.4 (25.0-35.0) pg MCHC 33.9 (31.0-37.0) g/dL RDW 15.6 H (11.5-15.5) % Plt Count 309 (150-450) k/uL MPV 7.3 Neutrophils % 85 % Lymphocytes % 9 % Monocytes % 4 % Eosinophils % 1 % Basophils % 0 % Neutrophils # 13.4 H (1.3-7.7) k/uL Lymphocytes # 1.5 (1.0-4.8) k/uL Monocytes # 0.6 (0-1.0) k/uL Eosinophils # 0.1 (0-0.7) k/uL Basophils # 0.0 (0-0.2) k/uL Poikilocytosis Slight ESR 10 (0-20) mm/hr Sodium 135 L (137-145) mmol/L Potassium 4.8 (3.5-5.1) mmol/L Chloride 104 (98-107) mmol/L Carbon Dioxide 24 (22-30) mmol/L Anion Gap 7 mmol/L BUN 12 (7-17) mg/dL Creatinine 0.45 L (0.52-1.04) mg/dL Est GFR (CKD-EPI)AfAm >90 (>60 ml/min/1.73 sqM) Est GFR (CKD-EPI)NonAf >90 (>60 ml/min/1.73 sqM) Glucose 98 (74-99) mg/dL Calcium 9.0 (8.4-10.2) mg/dL Total Bilirubin 0.6 (0.2-1.3) mg/dL AST 29 (14-36) U/L ALT 25 (4-34) U/L Alkaline Phosphatase 94 (38-126) U/L C-Reactive Protein 0.7 (<1.0) mg/dL Total Protein 6.8 (6.3-8.2) g/dL Albumin 4.2 (3.5-5.0) g/dL Urine Color Urine Appearance (Clear) Urine pH (5.0-8.0) Ur Specific [place] (1.001-1.035) Urine Protein (Negative) Urine Glucose (UA) (Negative) Urine Ketones (Negative) Urine Blood (Negative) Urine Nitrite (Negative) Urine Bilirubin (Negative) Urine Urobilinogen (<2.0) mg/dL Ur Leukocyte Esterase (Negative) Urine RBC (0-5) /hpf Urine WBC (0-5) /hpf Ur Squamous Epith Cells (0-4) /hpf Amorphous Sediment (None) /hpf Urine Mucus (None) /hpf Urine HCG, Qual (Not Detectd) Urine Opiates Screen (NotDetected) Ur Oxycodone Screen (NotDetected) Urine Methadone Screen (NotDetected) Ur Propoxyphene Screen (NotDetected) Ur Barbiturates Screen (NotDetected) U Tricyclic Antidepress (NotDetected) Ur Phencyclidine Scrn (NotDetected) Ur Amphetamines Screen (NotDetected) U Methamphetamines Scrn (NotDetected) U Benzodiazepines Scrn (NotDetected) Urine Cocaine Screen (NotDetected) U Marijuana (THC) Screen (NotDetected) Influenza Type A (PCR) Not Detected (Not Detectd) Influenza Type B (PCR) Not Detected (Not Detectd) RSV (PCR) Not Detected (Not Detectd) SARS-CoV-2 (PCR) Not Detected (Not Detectd) - Radiology Data Radiology results: report reviewed, image reviewed Disposition Clinical Impression: Headache Disposition: HOME SELF-CARE Instructions (If sedation given, give patient instructions): Acute Headache (ED) Additional Instructions: Return to the emergency department with any new, worsening, or concerning symptoms. You can take Toradol as needed for any residual headache symptoms. Do not take any anti-inflammatories with this. You may however take it with Tylenol. You can take the Zofran up to every 8 hours as needed for nausea and vomiting. Follow up with your primary care provider in 1-2 days. Contact neurology as listed below for a follow-up appointment and reevaluation of s ymptoms if the headache persists. Prescriptions: Ketorolac [Toradol] 10 mg PO Q6HR PRN #12 tab PRN Reason: Pain Ondansetron Odt [Zofran Odt] 4 mg PO Q8HR PRN #10 tab PRN Reason: Nausea And Vomiting Is patient prescribed a controlled substance at d/c from ED?: No Referrals: Eric Manley DO [Primary Care Provider] - 1-2 days Rocío Costa MD [Medical Doctor] - 1-2 days
[2022-06-02 07:16] LABS: Basophils % (A) 0 %; Eosinophils # (A) 0.1 k/uL (0-0.7); Eosinophils % (A) 1 %; HCT 40.5 % (34.0-46.0); HGB 13.7 gm/dL (11.4-16.0); Lymphocytes # (A) 1.5 k/uL (1.0-4.8); Lymphocytes % (A) 9 %; MCH 27.4 pg (25.0-35.0); MCHC 33.9 g/dL (31.0-37.0); MCV 80.9 fL (80.0-100.0); Mean Platelet Volume 7.3; Monocytes # (A) 0.6 k/uL (0-1.0); Monocytes % (A) 4 %; Neutrophils # (A) 13.4 k/uL (1.3-7.7); Neutrophils % (A) 85 %; Platelet Count 309 k/uL (150-450); Poikilocytosis Slight; RBC 5.01 m/uL (3.80-5.40); RDW 15.6 % (11.5-15.5); WBC 15.8 k/uL (3.8-10.6)
[2022-06-02 07:44] LABS: ALT 25 U/L (4-34); AST 29 U/L (14-36); African American GFR (CKD) >90 (>60 ml/min/1.73 sqM); Albumin 4.2 g/dL (3.5-5.0); Alkaline Phosphatase 94 U/L (38-126); Anion Gap 7 mmol/L; Blood Urea Nitrogen 12 mg/dL (7-17); C Reactive Protein 0.7 mg/dL (<1.0); Carbon Dioxide 24 mmol/L (22-30); Chloride 104 mmol/L (98-107); Glucose 98 mg/dL (74-99); Non-African American GFR(CKD) >90 (>60 ml/min/1.73 sqM); Potassium 4.8 mmol/L (3.5-5.1); Sodium 135 mmol/L (137-145); Total Bilirubin 0.6 mg/dL (0.2-1.3); Total Protein 6.8 g/dL (6.3-8.2)
--- NOTE | 2022-06-02 08:45 | CT ---
EXAMINATION TYPE: CT brain wo con CT DLP: 854.5 mGycm, Automated exposure control for dose reduction was used. DATE OF EXAM: 06/02/2022 8:39 AM COMPARISON: None. CLINICAL INDICATION:Female, 36 years old with history of Worst headache of her life, headache TECHNIQUE: Brain: Multiple axial CT images of the brain were obtained without IV contrast. Coronal and sagittal reformats reviewed. FINDINGS: Brain: Extra-axial spaces: No abnormal extra-axial fluid collections. Ventricular system: Within normal limits Cerebral parenchyma: No acute intraparenchymal hemorrhage or mass effect. The parr-white junction is well differentiated. Cerebellum: Unremarkable. Mass effect: No evidence of midline shift. Intracranial vasculature: unremarkable Soft tissues: Normal. Calvarium/osseous structures: No depressed skull fracture. Paranasal sinuses and mastoid air cells: Mucosal thickening of ethmoid sinuses. Hypoplastic right fro ntal sinus. The mastoid air cells are clear. Visualized orbits: Orbital contents are intact. IMPRESSION: No acute intracranial process.
--- NOTE | 2022-06-02 08:49 | CT ---
EXAMINATION TYPE: CT angio head neck CT DLP: 854.5 mGycm, Automated exposure control for dose reduction was used. DATE OF EXAM: 06/02/2022 8:39 AM COMPARISON: CT brain of the same date. CLINICAL INDICATION:Female, 36 years old with history of Worst headache of her life; PHH, headache TECHNIQUE: Axially acquired helical CT angiogram of the head and neck was obtained with contrast util izing 65 cc of Isovue-370 administered intravenously. Axial images are supplemented with 3D reconstru ctions which were post-processed at an independent workstation. NASCET criteria used. FINDINGS: CTA HEAD: No evidence of acute intracranial hemorrhage, mass effect, or midline shift. The ventricles, sulci, a nd cisterns are unremarkable. The visualized portions of the internal carotid arteries, middle cerebral arteries, anterior cerebral arteries, and posterior cerebral arteries are patent. 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 The basilar and vertebral arteries are patent. CTA NECK: Right Carotid System: The common carotid artery and external carotid artery are patent. The carotid bifurcation demonstrate s no evidence of hemodynamically significant stenosis. The remaining portions of the internal carotid artery demonstrate normal size without significant narrowing. Left Carotid System: The common carotid artery and external carotid artery are patent. The carotid bifurcation demonstrate s no evidence of hemodynamically significant stenosis. The remaining portions of the internal carotid artery demonstrate normal size without significant narrowing. Vertebral arteries are patent without evidence hemodynamically significant stenosis. The vertebral ar teries are codominant. There is a three-vessel aortic arch. The origins of the great vessels are patent. No evidence of hemo dynamically significant stenosis. Remote right lateral fifth rib fracture. IMPRESSION: 1. No evidence of dissection of the cervical internal carotid arteries or vertebral arteries or any e vidence of significant stenosis at the carotid bifurcations. 2. No evidence of high-grade stenosis or intracranial aneurysm.
[2022-06-02 09:13] LABS: Amphetamine Screen,Urine Not Detected (NotDetected); Barbiturate Screen,Urine Not Detected (NotDetected); Benzodiazepines Screen,Urine Not Detected (NotDetected); Cocaine Screen,Urine Not Detected (NotDetected); Methadone Screen, Urine Not Detected (NotDetected); Opiate Screen,Urine Not Detected (NotDetected); Oxycodone Screen, Urine Not Detected (NotDetected); Phencyclidine Screen,Urine Not Detected (NotDetected); Tricyclic Antidepressant,Urine Not Detected (NotDetected); Urn Cannabinoid Scrn Detected (NotDetected)
[2022-06-02 09:18] LABS: Amorphous Sediment,Urine Moderate /hpf; Appearance,Urine Cloudy (Clear); Bilirubin,Urine Negative (Negative); Blood,Urine Negative (Negative); Color,Urine Light Yellow; Glucose,Urine (UA) Negative (Negative); Ketones,Urine Negative (Negative); Leukocyte Esterase,Urine Moderate (Negative); Mucus,Urine Rare /hpf; Nitrite,Urine Negative (Negative); Protein,Urine Negative (Negative); RBC,Urine 1 /hpf (0-5); Specific Gravity,Urine 1.015 (1.001-1.035); Squamous Epithelial Cell,Urine 8 /hpf (0-4); Urobilinogen,Urine <2.0 mg/dL (<2.0); WBC,Urine 5 /hpf (0-5)
[2022-06-02] MEDS ORDERED: ACET/COD 300 MG/30 MG STARTER PACK 6 TAB BTL PO STA (09:19)
[2022-06-02] MEDS ORDERED: ONDANSETRON 4 MG ODT STARTER PACK 2 TAB BTL PO STA (09:19)
[2022-06-02 09:53] VITALS: BP 122/74; PULSE 75; RESP 18; TEMP 97.3
[2022-06-02 11:45] LABS: Erythrocyte Sedimentation Rate 10 mm/hr (0-20)
== END 2022-06-02 09:53 | disposition home or self-care (01) ==
LOC: EC 03:29
DX: R51.9 Headache, unspecified (principal); K21.9 Gastro-esophageal reflux disease without esophagitis; F41.9 Anxiety disorder, unspecified; F32.A Depression, unspecified; F12.90 Cannabis use, unspecified, uncomplicated; Z88.2 Allergy status to sulfonamides; Z88.3 Allergy status to other anti-infective agents; Z88.1 Allergy status to other antibiotic agents; Z79.899 Other long term (current) drug therapy; Z20.822 Contact with and (suspected) exposure to COVID-19
CPT/HCPCS: 36415; 80053; 85652; 85025; 86140; 81001; 81025; 80306; 87636; 70496; 70450; 70498; 99284; 96374; 96375 ×3; 96361; J1200; J1100; J2765; J1885; S0119; Q9967

== ENCOUNTER 2022-06-08 11:32 | Emergency (ER) | payer OTHER ==
[2022-06-08 12:07] VITALS: BP 139/94; PULSE 98; RESP 18; TEMP 98.3
--- NOTE | 2022-06-08 12:54 | ED ---
Headache HPI - General Chief Complaint: Headache Stated Complaint: headache Time Seen by Provider: 06/08/22 12:20 Source: patient, RN notes reviewed, old records reviewed Mode of arrival: ambulatory Limitations: no limitations - History of Present Illness Initial Comments: 36-year-old female history of chronic headaches who states she's had a persistent headache since she was here last week. She states that headache is frontal and left-sided hurts with movements and positional changes some nausea some vomiting no overt lightheadedness or dizziness. States the pain is very severe. She states the pain she was worked up for last week get improvement with the medication was given she did not get a Toradol prescription filled because of possible reaction with her Zoloft. She denies any fevers chills sweats MD Complaint: headache - Related Data Home Medications Medication Instructions Recorded Confirmed Escitalopram [Lexapro] 30 mg PO DAILY 03/11/20 03/10/21 Loperamide [Imodium] 4 mg PO QID PRN 04/16/20 03/10/21 ALPRAZolam [Xanax] 1 mg PO Q8H PRN 02/11/21 03/10/21 Cholecalciferol [Vitamin D3 (125 125 mcg PO DAILY 02/11/21 03/10/21 Mcg = 5000 Iu)] Cyanocobalamin (Vitamin B-12) 1,000 mcg PO DAILY 02/11/21 03/10/21 [Vitamin B-12] Fluocinonide 0.05% Topical Solution 1 applic TOPICAL HS PRN 02/11/21 03/10/21 Iron(Unknown) 1 tab PO DAILY 02/11/21 03/10/21 Ketoconazole 2% Shampoo [Nizoral] 1 applic TOPICAL Q48H PRN 02/11/21 03/10/21 Multivitamins, Thera [Multivitamin 1 tab PO DAILY 02/11/21 03/10/21 (formulary)] Naproxen 500 mg PO BID PRN 02/11/21 03/10/21 Omeprazole 40 mg PO DAILY 02/11/21 03/10/21 Vitamin A(Unknown) 1 cap PO DAILY 02/11/21 03/10/21 Zinc 50 mg PO DAILY 02/11/21 03/10/21 buPROPion HCL [Wellbutrin XL] 300 mg PO DAILY 02/11/21 03/10/21 Previous Rx's Medication Instructions Recorded Ondansetron Odt [Zofran Odt] 4 mg PO Q8HR PRN #10 tab 06/02/22 Acetaminophen-Codeine 300-30mg 1 tab PO Q6H PRN 3 Days #12 tablet 06/04/22 [Tylenol w/codeine #3] Orphenadrine [Norflex] 100 mg PO Q12H #7 tab 06/08/22 Allergies Allergy/AdvReac Type Severity Reaction Status Date / Time fluconazole [From Diflucan] Allergy Rash/Hives Verified 06/08/22 12:07 sulfamethoxazole AdvReac Intermediate Nausea Verified 06/08/22 12:07 [From Bactrim] trimethoprim [From Bactrim] AdvReac Intermediate Nausea Verified 06/08/22 12:07 Review of Systems ROS Statement: Those systems with pertinent positive or pertinent negative responses have been documented in the HPI. ROS Other: All systems not noted in ROS Statement are negative. Past Medical History Past Medical History: GERD/Reflux Additional Past Medical History / Comment(s): IBS, mainly diarrhea, seasonal allergies History of Any Multi-Drug Resistant Organisms: None Reported Past Surgical History: Bariatric Surgery, Cholecystectomy Additional Past Surgical History / Comment(s): colonoscopies, EGD. 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 Past Anesthesia/Blood Transfusion Reactions: No Reported Reaction Past Psychological History: Anxiety, Depression Smoking Status: Never smoker Past Alcohol Use History: None Reported Past Drug Use History: Marijuana - Past Family History Mother Family Medical History: No Reported History General Exam - General Exam Comments Initial Comments: This is a well-developed well-nourished awake alert oriented 4 female Limitations: no limitations General appearance: alert, anxious, in distress Head exam: Present: atraumatic, normocephalic, normal inspection Eye exam: Present: normal appearance, PERRL, EOMI. Absent: scleral icterus, conjunctival injection, periorbital swelling ENT exam: Present: mucous membranes dry Neck exam: Present: normal inspection, full ROM, other (No stridor JVD or bruits). Absent: tenderness, meningismus, lymphadenopathy Respiratory exam: Present: normal lung sounds bilaterally. Absent: respiratory distress, wheezes, rales, rhonchi, stridor Cardiovascular Exam: Present: regular rate, normal rhythm, normal heart sounds. Absent: systolic murmur, diastolic murmur, rubs, gallop, clicks GI/Abdominal exam: Present: soft, normal bowel sounds. Absent: distended, tenderness, guarding, rebound, rigid Extremities exam: Present: normal inspection, full ROM, normal capillary refill. Absent: tenderness, pedal edema, joint swelling, calf tenderness Back exam: Present: normal inspection Neurological exam: Present: alert, oriented X3, CN II-XII intact Psychiatric exam: Present: normal affect, normal mood Skin exam: Present: warm, dry, intact, normal color. Absent: rash Course Vital Signs 06/08/22 12:04 Temperature 98.3 F Pulse Rate 98 Respiratory 18 Rate Blood Pressure 139/94 O2 Sat by Pulse 99 Oximetry - Reevaluation(s) Reevaluation #1: 06/08/22 15:15 Reevaluation patient she is feeling much improved and would like to go home she does have Toradol home we'll add a muscle relaxer to this. Medical Decision Making - Medical Decision Making I did discuss findings with the patient she is feeling much improved after the medication was rendered. Through somewhat to her previous episode. She does have Toradol at home we will add a muscle relaxers are does seem to be a musculoskeletal component to this. She has have follow-up with neurology.Was p t. sent in by a medical professional or institution ([facility], PERSONNEL PSYCHOLOGIST, urgent care, hospital, or care home...) When possible be specific @ -[No] Did you speak to anyone other than the patient for history (EMS, parent, family, police, friend...)? What history was obtained from this source @ -[No] Did you review nursing and triage notes (agree or disagree)? Why? @ -[I reviewed and agree with nursing and triage notes] Were old charts reviewed (outside hosp., previous admission, EMS record, old EKG, old radiological studies, urgent care reports/EKG's, care home records)? Report findings @ -[Last admission old charts were reviewed] Differential Diagnosis (chest pain, altered mental status, abdominal pain women, abdominal pain men, vaginal bleeding, weakness, fever, dyspnea, syncope, headache, dizziness, GI bleed, back pain, seizure, CVA, palpatations, mental health, musculoskeletal)? @ -[Cephalgia] EKG interpreted by me (3pts min.). @ -[Not done] X-rays interpreted by me (1pt min.). @ -[None done] CT interpreted by me (1pt min.). @ -[None done] U/S interpreted by me (1pt. min.). @ -[None done] What testing was considered but not performed or refused? (CT, X-rays, U/S, labs)? Why? @ -[None] What meds were considered but not given or refused? Why? @ -[None] Did you discuss the management of the patient with other professionals (professionals i.e. , PA, PERSONNEL PSYCHOLOGIST, lab, RT, psych nurse, executive secretary social welfare, cafeteria assistant, teacher, housing management officer, corrections caseworker)? Give summary @ -[No] Was smoking cessation discussed for >3mins.? @ -[No] Was critical care preformed (if so, how long)? @ -[No] Were there social determinants of health that impacted care today? How? ( Homelessness, low income, unemployed, alcoholism, drug addiction, transportation, low edu. Level, literacy, decrease access to med. care, senior care, rehab)? @ -[No] Was there de-escalation of care discussed even if they declined (Discuss DNR or withdrawal of care, Hospice)? DNR status @ -[No] What co-morbidities impacted this encounter? (DM, HTN, Smoking, COPD, CAD, Cancer, CVA, ARF, Chemo, Hep., AIDS, mental health diagnosis, sleep apnea, morbid obesity)? @ -[History of headaches] Was patient admitted / discharged? Hospital course, mention meds given and route, prescriptions, significant lab abnormalities, going to OR and other pertinent info. @ -[hospital course] the patient was discharged she will be continued with Toradol for pain muscle relaxers keep her follow-up with neurology. Undiagnosed new problem with uncertain prognosis? @ -[No] Drug Therapy requiring intensive monitoring for toxicity (Heparin, Nitro, Insulin, Cardizem)? @ -[No] Were any procedures done? @ -[No] Diagnosis/symptom? @ -[Acute cephalgia] Acute, or Chronic, or Acute on Chronic? @ -[default] Uncomplicated (without systemic symptoms) or Complicated (systemic symptoms)? @ -[default] Side effects of treatment? @ -[No] Exacerbation, Progression, or Severe Exacerbation? @ -[No] Poses a threat to life or bodily function? How? (Chest pain, [place], [place], pneumonia, PE, COPD, DKA, ARF, appy, cholecystitis, CVA, Diverticulitis, Homicidal, Suicidal, threat to staff... and all critical care pts) @ -[No] Disposition Clinical Impression: Acute headache Disposition: HOME SELF-CARE Condition: Good Instructions (If sedation given, give patient instructions): Acute Headache (ED) Prescriptions: Orphenadrine [Norflex] 100 mg PO Q12H #7 tab Is patient prescribed a controlled substance at d/c from ED?: No Referrals: Eric Manley DO [Primary Care Provider] - 1-2 days Decision Date: 06/08/22 Decision Time: 15:18
[2022-06-08] MEDS ORDERED: KETOROLAC 15 MG/ML 1 ML VIAL IVP STA (13:30)
[2022-06-08] MEDS ORDERED: METOCLOPRAMIDE 5 MG/ML 2 ML VIAL IVP STA (13:30)
[2022-06-08] MEDS ORDERED: diphenhydrAMINE 50 MG/ML 1 ML VIAL IVP STA (13:30)
[2022-06-08] MEDS ORDERED: DEXAMETHASONE SOD PHOSPHATE 4 MG/ML 1 ML VIAL IVP STA (13:31)
== END 2022-06-08 15:36 | disposition home or self-care (01) ==
LOC: EC 11:32
DX: R51.9 Headache, unspecified (principal); K21.9 Gastro-esophageal reflux disease without esophagitis; F32.A Depression, unspecified; F41.9 Anxiety disorder, unspecified; F12.90 Cannabis use, unspecified, uncomplicated; Z79.899 Other long term (current) drug therapy; Z88.1 Allergy status to other antibiotic agents; Z88.2 Allergy status to sulfonamides; Z88.3 Allergy status to other anti-infective agents
CPT/HCPCS: 99284; 96374; 96375 ×3; J1200; J1100; J2765; J1885

== ENCOUNTER → 2022-07-17 | Outpatient (CLI) | payer OTHER ==
[2022-07-17 10:48] LABS: Basophils # (A) 0.05 X 10*3/uL (0.00-0.10); Basophils % (A) 0.6 %; Eosinophils # (A) 0.39 X 10*3/uL (0.04-0.35); Eosinophils % (A) 4.7 %; HCT 40.3 % (37.2-46.3); Immature Grans, Automated 1.8 %; Lymphocytes # (A) 1.06 X 10*3/uL (0.90-5.00); Lymphocytes % (A) 12.7 %; MCH 24.9 pg (27.0-32.0); MCHC 29.8 g/dL (32.0-37.0); MCV 83.6 fL (80.0-97.0); Mean Platelet Volume 9.5 fL (9.5-12.2); Monocytes # (A) 0.57 X 10*3/uL (0.20-1.00); Monocytes % (A) 6.8 %; NRBC Per 100 WBC 0 /100 WBCS (0.0-0.0); Neutrophils # (A) 6.15 X 10*3/uL (1.80-7.70); Neutrophils % (A) 73.4 %; Platelet Count 307 X 10*3/uL (140-440); RBC 4.82 X 10*6/uL (4.10-5.20); RDW 15.7 % (11.5-14.5); WBC 8.37 X 10*3/uL (4.50-10.00)
[2022-07-17 11:22] LABS: ALT 18 U/L (8-44); AST 16 U/L (13-35); African American GFR (CKD) 109.9 (60.0-200.0); Albumin 4.3 g/dL (3.8-4.9); Albumin/Globulin Ratio 2.53 (1.60-3.17); Alkaline Phosphatase 96 U/L (41-126); Blood Urea Nitrogen 10.8 mg/dL (9.0-27.0); Calcium 9.3 mg/dL (8.7-10.3); Carbon Dioxide 21.9 mmol/L (20.0-27.5); Chloride 107 mmol/L (96-109); Globulin 1.7 g/dL (1.6-3.3); Glucose 109 mg/dL (70-110); Non-African American GFR(CKD) 94.8 (60.0-200.0); Potassium 4.3 mmol/L (3.5-5.5); Sodium 140 mmol/L (135-145); Total Bilirubin <0.15 mg/dL (0.30-1.20)
== END | disposition home or self-care (01) ==
LOC: LABWHC1 06:52
PROVIDERS: ATTEND Nurse Practitioner Acute Care
DX: M54.81 Occipital neuralgia (principal); E55.9 Vitamin D deficiency, unspecified; E53.9 Vitamin B deficiency, unspecified; G43.909 Migraine, unspecified, not intractable, without status migrainosus; H47.10 Unspecified papilledema
CPT/HCPCS: 36415; 80053; 82306; 82607; 84207; 84439; 84443; 84481; 85025

== ENCOUNTER → 2022-10-05 | Outpatient (CLI) | payer OTHER ==
[2022-10-05 14:34] VITALS: BP 122/84; PULSE 74; TEMP 98.3; BMI 38.3
--- NOTE | 2022-10-05 14:41 | P.HPBAR ---
Bariatric H&P - History & Physicial H&P Date: 10/05/22 History & Physicial: Visit/CC: annual F/U Patient initial contact: Initial weight: Initial weight in pounds: Height: 5 ft 7 in Initial BMI: Last weight: Current weight: 111.13 kg Current weight in pounds: 245.00 Current BMI: 38.3 [place] body weight (based on NIH guidelines): 61.235 kg Excess body weight loss: The patient is a 37 year-old F who presents for Bariatric Assessment. Patient presents today for follow-up. She has essentially stayed the same weight. She states that she has stress eating. She's had minimal GERD. 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 Past Anesthesia/Blood Transfusion Reactions: No Reported Reaction Past Psychological History: Anxiety, Depression Smoking Status: Never smoker Past Alcohol Use History: None Reported Past Drug Use History: Marijuana Additional Drug Use History / Comment(s): 1-2 times week - Past Family History Mother Family Medical History: No Reported History Surgical - Exam Vital Signs Temp Pulse BP 98.3 F 74 122/84 10/05/22 14:27 10/05/22 14:27 10/05/22 14:27 - General well developed, well nourished, no distress - Eyes PERRL - ENT normal pinna - Neck no masses - Respiratory normal expansion - Cardiovascular Rhythm: regular - Abdomen Abdomen: soft, non tender Bariatric Assessment & Plan Plan: The patient has been stressing. Her GERD is minimal and will be observed. She'll follow-up in 4 weeks. Bariatric Checklist Checklist: Plan: Checklist: EGD: 1. Hiatal hernia: 2. H. Pylori: HgbA1c: Vitamin D: Smoking: Never smoker Primary care physician referral: Dr. lind Psychiatry clearance: Cardiology clearance: Sleep study: Diet journal: VTE risk score: VTE risk level: Rehab needs at discharge:
== END ==
LOC: BARWHC3 14:19
PROVIDERS: ATTEND Surgery
DX: E66.01 Morbid (severe) obesity due to excess calories (principal); K21.9 Gastro-esophageal reflux disease without esophagitis; F32.A Depression, unspecified; F41.9 Anxiety disorder, unspecified; Z68.38 Body mass index [BMI] 38.0-38.9, adult; Z88.2 Allergy status to sulfonamides; Z88.8 Allergy status to other drugs, medicaments and biological substances
CPT/HCPCS: 99211

== ENCOUNTER → 2023-01-09 | Outpatient (CLI) | payer OTHER ==
[2023-01-09 13:47] LABS: Basophils # (A) 0.04 X 10*3/uL (0.00-0.10); Basophils % (A) 0.5 %; Eosinophils # (A) 0.09 X 10*3/uL (0.04-0.35); Eosinophils % (A) 1.1 %; HCT 41.9 % (37.2-46.3); HGB 12.7 g/dL (12.0-15.0); Lymphocytes # (A) 1.17 X 10*3/uL (0.90-5.00); Lymphocytes % (A) 14.5 %; MCH 24.5 pg (27.0-32.0); MCHC 30.3 g/dL (32.0-37.0); MCV 80.7 FL (80.0-97.0); Mean Platelet Volume 9.3 FL (9.5-12.2); Monocytes # (A) 0.49 X 10*3/uL (0.20-1.00); Monocytes % (A) 6.1 %; NRBC Per 100 WBC 0 X 10*3/uL (0.00-0.01); Neutrophils # (A) 6.22 X 10*3/uL (1.80-7.70); Neutrophils % (A) 76.9 %; Platelet Count 368 X 10*3/uL (140-440); RBC 5.19 X 10*6/uL (4.10-5.20); RDW 16.8 % (11.5-14.5); WBC 8.08 X 10*3/uL (4.50-10.00)
[2023-01-09 14:07] LABS: ALT 18 U/L (8-44); AST 17 U/L (13-35); Albumin 4.4 g/dL (3.8-4.9); Albumin/Globulin Ratio 2.44 Ratio (1.60-3.17); Alkaline Phosphatase 100 U/L (41-126); Blood Urea Nitrogen 6.4 mg/dL (9.0-27.0); Calcium 9.3 mg/dL (8.7-10.3); Carbon Dioxide 21.3 mmol/L (21.6-31.8); Chloride 107 mmol/L (96-109); Globulin 1.8 g/dL (1.6-3.3); Glucose 81 mg/dL (70-110); Potassium 4.3 mmol/L (3.5-5.5); Sodium 141 mmol/L (135-145); T4, Free (Free Thyroxine) 0.98 ng/dL (0.80-1.80); Total Bilirubin <0.2 mg/dL (0.3-1.2); Total Protein 6.2 g/dL (6.2-8.2)
== END | disposition home or self-care (01) ==
LOC: LABWHC1 07:56
PROVIDERS: ATTEND Psychiatry & Neurology Neurology
DX: E55.9 Vitamin D deficiency, unspecified (principal); R51.9 Headache, unspecified
CPT/HCPCS: 36415; 80053; 82306; 82607; 84207; 84439; 84443; 84481; 85025

== ENCOUNTER 2023-10-28 16:25 | Emergency (ER) | payer OTHER ==
--- NOTE | 2023-10-28 16:43 | ED ---
Back Pain HPI - General Source: patient, RN notes reviewed <Marisa Pete - Last Filed: 10/28/23 16:41> - General Source: RN notes reviewed, old records reviewed Mode of arrival: ambulatory Limitations: no limitations - History of Present Illness MD Complaint: back pain, other (Flank pain) -: days(s) Similar Symptoms Previously: Yes Radiation: none Severity: severe Severity scale (1-10): 9 Quality: sharp Consistency: constant Improves With: none Worsens With: none Associated Symptoms: denies other symptoms Treatments Prior to Arrival: other medications (0) <Shan Mendoza - Last Filed: 11/06/23 00:59> - General Stated Complaint: abd pain Time Seen by Provider: 10/28/23 16:41 - History of Present Illness Initial Comments: Quick [id number] female presents emergency department chief complaint of left flank pain has been present over the past 2 hours. She denies radiation of pain. Endorses nausea and vomiting. She denies dysuria, hematuria, increase in urinary frequency or urgency. Denies history of nephrolithiasis. Denies chance of . (Marisa Pete) This is a 38-year-old female with severe abdominal pain severe back pain with no history of kidney stones but with severe flank pain left flank pain (Shan Mendoza) - Related Data Home Medications Medication Instructions Recorded Confirmed ALPRAZolam [Xanax] 1 mg PO BID PRN 02/11/21 11/05/23 Omeprazole 20 mg PO DAILY 06/08/22 11/05/23 Sertraline [Zoloft] 150 mg PO DAILY 06/08/22 11/05/23 lamoTRIgine 150 mg PO BID 06/08/22 11/05/23 Topiramate [Topamax] 50 mg PO BID 10/05/22 11/05/23 Galcanezumab-Gnlm [Emgality Pen] 120 mg SQ QMONTHLY 11/05/23 11/05/23 Ketoconazole 2% Shampoo [Nizoral] 1 applic TOPICAL Q2D PRN 11/05/23 11/05/23 Phentermine HCl [Adipex-P] 37.5 mg PO DAILY 11/05/23 11/05/23 Rimegepant Sulfate [Nurtec Odt] 75 mg PO Q48H PRN 11/05/23 11/05/23 Allergies Allergy/AdvReac Type Severity Reaction Status Date / Time fluconazole [From Diflucan] Allergy Rash/Hives Verified 11/05/23 09:17 sulfamethoxazole AdvReac Intermediate Nausea Verified 11/05/23 09:17 [From Bactrim] trimethoprim [From Bactrim] AdvReac Intermediate Nausea Verified 11/05/23 09:17 Review of Systems ROS Other: All systems not noted in ROS Statement are negative. <Marisa Pete - Last Filed: 10/28/23 16:41> ROS Other: All systems not noted in ROS Statement are negative. <Shan Mendoza - Last Filed: 11/06/23 00:59> ROS Statement: Those systems with pertinent positive or pertinent negative responses have been documented in the HPI. 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 Past Anesthesia/Blood Transfusion Reactions: No Reported Reaction Past Psychological History: Anxiety, Depression Smoking Status: Never smoker Past Alcohol Use History: None Reported Past Drug Use History: Marijuana Additional Drug Use History / Comment(s): 1-2 times week - Past Family History Mother Family Medical History: No Reported History <Marisa Pete - Last Filed: 10/28/23 16:41> General Exam <Marisa Pete - Last Filed: 10/28/23 16:41> General appearance: alert, in no apparent distress Head exam: Present: atraumatic, normocephalic, normal inspection Eye exam: Present: normal appearance, PERRL, EOMI. Absent: scleral icterus, conjunctival injection, periorbital swelling ENT exam: Present: normal exam, mucous membranes moist Neck exam: Present: normal inspection. Absent: tenderness, meningismus, lymphadenopathy Respiratory exam: Present: normal lung sounds bilaterally. Absent: respiratory distress, wheezes, rales, rhonchi, stridor Cardiovascular Exam: Present: regular rate, normal rhythm, normal heart sounds. Absent: systolic murmur, diastolic murmur, rubs, gallop, clicks GI/Abdominal exam: Present: soft, normal bowel sounds. Absent: distended, tend erness, guarding, rebound, rigid Extremities exam: Present: normal inspection, full ROM, normal capillary refill. Absent: tenderness, pedal edema, joint swelling, calf tenderness Back exam: Present: normal inspection Neurological exam: Present: alert, oriented X3, CN II-XII intact Psychiatric exam: Present: normal affect, normal mood Skin exam: Present: warm, dry, intact, normal color. Absent: rash <Shan Mendoza - Last Filed: 11/06/23 00:59> - General Exam Comments Initial Comments: Visual Physical Exam Vital signs reviewed General: Well-appearing, nontoxic, no acute distress. Head: Normocephalic, atraumatic Eyes: PERRLA, EOMI ENT: Airway patent Chest: Nonlabored breathing Skin: No visual rash, normal skin tone Neuro: Alert and oriented 3 Musculoskeletal: No gross abnormalities (Stieler,Marisa) Course <Shan Mendoza - Last Filed: 11/06/23 00:59> Vital Signs 10/28/23 10/28/23 16:42 21:14 Temperature 97.9 F Pulse Rate 102 H 89 Respiratory 18 18 Rate Blood Pressure 120/91 110/71 O2 Sat by Pulse 100 98 Oximetry - Reevaluation(s) Reevaluation #1: Medical records reviewed (Shan Mendoza) Reevaluation #2: Patient symptoms improved (Shan Mendoza) Reevaluation #3: Patient informed of results and questions answered (Shan Mendoza) Reevaluation #4: Was pt. sent in by a medical professional or institution (, PA, METAL ROOFING MECHANIC, urgent care, hospital, or detention...) When possible be specific @ -no Did you speak to anyone other than the patient for history (EMS, parent, family, police, friend...)? What history was obtained from this source @ -no Did you review nursing and triage notes (agree or disagree)? Why? @ -agree Are old charts reviewed (outside hosp., previous admission, EMS record, old EKG, old radiological studies, urgent care reports/EKG's, detention records)? Report findings @ -yes Differential Diagnosis (chest pain, altered mental status, abdominal pain women, abdominal pain men, vaginal bleeding, weakness, fever, dyspnea, syncope, headache, dizziness, GI bleed, back pain, seizure, CVA, palpatations, mental health, musculoskeletal)? @ -prior EKG interpreted by me (3pts min.). @ -yes X-rays interpreted by me (1pt min.). @ -no CT interpreted by me (1pt min.). @ -yes negative for acute disease U/S interpreted by me (1pt. min.). @ -no What testing was considered but not performed or refused? (CT, X-rays, U/S, labs)? Why? @ -none What meds were considered but not given or refused? Why? @ -none Did you discuss the management of the patient with other professionals (professionals i.e. , PA, METAL ROOFING MECHANIC, lab, RT, psych nurse, social media job titles, director of workforce development, teacher, aoc director intelligence officer, showcase trimmer)? Give summary @ -no Was smoking cessation discussed for >3mins.? @ -no Was critical care preformed (if so, how long)? @ -no Were there social determinants of health that impacted care today? How? (Homelessness, low income, unemployed, alcoholism, drug addiction, transportation, low edu. Level, literacy, decrease access to med. care, custodial, rehab)? @ -none Was there de-escalation of care discussed even if they declined (Discuss DNR or withdrawal of care, Hospice)? DNR status @ -no What co-morbidities impacted this encounter? (DM, HTN, Smoking, COPD, CAD, Ca ncer, CVA, ARF, Chemo, Hep., AIDS, mental health diagnosis, sleep apnea, morbid obesity)? @ -none Was patient admitted / discharged? Hospital course, mention meds given and route, prescriptions, significant lab abnormalities, going to OR and other pertinent info. @ - 38 female with kidney stone found of kidney stone here in the ER pain well- controlled patient can be discharged home Discharge Undiagnosed new problem with uncertain prognosis? @ -no Drug Therapy requiring intensive monitoring for toxicity (Heparin, Nitro, Insulin, Cardizem)? @ -no Were any procedures done? @ -no Diagnosis/symptom? @ -Ureteral stone kidney stone Acute, or Chronic, or Acute on Chronic? @ -Acute Uncomplicated (without systemic symptoms) or Complicated (systemic symptoms)? @ -Complicated Side effects of treatment? @ -no Exacerbation, Progression, or Severe Exacerbation? @ -exacerbation Poses a threat to life or bodily function? How? (Chest pain, [place], [place], pneumonia, PE, COPD, DKA, ARF, appy, cholecystitis, CVA, Diverticulitis, Homicidal, Suicidal, threat to staff... and all critical care pts) @ -yes (Shan Mendoza) Reevaluation #5: Differential Back Pain: Strain, zoster, cauda equina syndrome, epidural abscess, vertebral osteomyelitis, discitis, fracture, subluxation, disc herniation, DJD, spinal stenosis, dissection, AAA, pancreatitis, peptic ulcer disease, pyelonephritis, kidney stone, this is not meant to be an all-inclusive list. (Shan Mendoza) Medical Decision Making <Marisa Pete - Last Filed: 10/28/23 16:41> - Lab Data Result diagrams: 10/28/23 17:00 10/28/23 17:00 - Radiology Data Radiology results: report reviewed (CT abdomen pelvis positive for kidney stone), image reviewed <Shan Mendoza - Last Filed: 11/06/23 00:59> - Medical Decision Making I completed the quick note portion of this chart signed Marisa Pete PA-C (Marisa Pete) 38 female with kidney stone found of kidney stone here in the ER pain well- controlled patient can be discharged home (Shan Mendoza) - Lab Data Lab Results 10/28/23 10/28/23 10/28/23 Range/Units 17:00 17:00 17:00 WBC 14.5 H (3.8-10.6) k/uL RBC 5.70 H (3.80-5.40) m/uL Hgb 12.7 (11.4-16.0) gm/dL Hct 42.3 (34.0-46.0) % MCV 74.2 L (80.0-100.0) fL MCH 22.3 L (25.0-35.0) pg MCHC 30.0 L (31.0-37.0) g/dL RDW 17.2 H (11.5-15.5) % Plt Count 429 (150-450) k/uL MPV 6.9 Neutrophils % 81 % Lymphocytes % 11 % Monocytes % 4 % Eosinophils % 2 % Basophils % 0 % Neutrophils # 11.8 H (1.3-7.7) k/uL Lymphocytes # 1.6 (1.0-4.8) k/uL Monocytes # 0.6 (0-1.0) k/uL Eosinophils # 0.3 (0-0.7) k/uL Basophils # 0.1 (0-0.2) k/uL Hypochromasia Marked Anisocytosis Slight Microcytosis Moderate Sodium 139 (137-145) mmol/L Potassium 4.2 (3.5-5.1) mmol/L Chloride 110 H (98-107) mmol/L Carbon Dioxide 22 (22-30) mmol/L Anion Gap 7 mmol/L BUN 11 (7-17) mg/dL Creatinine 0.87 (0.52-1.04) mg/dL Est GFR (CKD-EPI)AfAm >90 (>60 ml/min/1.73 sqM) Est GFR (CKD-EPI)NonAf 85 (>60 ml/min/1.73 sqM) Glucose 123 H (74-99) mg/dL Plasma Lactic Acid Marty 1.7 (0.7-2.0) mmol/L Calcium 10.1 (8.4-10.2) mg/dL Total Bilirubin 0.4 (0.2-1.3) mg/dL AST 23 (14-36) U/L ALT 16 (4-34) U/L Alkaline Phosphatase 99 (38-126) U/L Total Protein 6.8 (6.3-8.2) g/dL Albumin 4.6 (3.5-5.0) g/dL Lipase 75 (23-300) U/L Urine Color Urine Appearance (Clear) Urine pH (5.0-8.0) Ur Specific [place] (1.001-1.035) Urine Protein (Negative) Urine Glucose (UA) (Negative) Urine Ketones (Negative) Urine Blood (Negative) Urine Nitrite (Negative) Urine Bilirubin (Negative) Urine Urobilinogen (<2.0) mg/dL Ur Leukocyte Esterase (Negative) Urine RBC (0-5) /hpf Urine WBC (0-5) /hpf Ur Squamous Epith Cells (0-4) /hpf Urine Bacteria (None) /hpf Urine Mucus (None) /hpf Urine HCG, Qual (Not Detectd) 10/28/23 10/28/23 Range/Units 17:25 17:25 WBC (3.8-10.6) k/uL RBC (3.80-5.40) m/uL Hgb (11.4-16.0) gm/dL Hct (34.0-46.0) % MCV (80.0-100.0) fL MCH (25.0-35.0) pg MCHC (31.0-37.0) g/dL RDW (11.5-15.5) % Plt Count (150-450) k/uL MPV Neutrophils % % Lymphocytes % % Monocytes % % Eosinophils % % Basophils % % Neutrophils # (1.3-7.7) k/uL Lymphocytes # (1.0-4.8) k/uL Monocytes # (0-1.0) k/uL Eosinophils # (0-0.7) k/uL Basophils # (0-0.2) k/uL Hypochromasia Anisocytosis Microcytosis Sodium (137-145) mmol/L Potassium (3.5-5.1) mmol/L Chloride (98-107) mmol/L Carbon Dioxide (22-30) mmol/L Anion Gap mmol/L BUN (7-17) mg/dL Creatinine (0.52-1.04) mg/dL Est GFR (CKD-EPI)AfAm (>60 ml/min/1.73 sqM) Est GFR (CKD-EPI)NonAf (>60 ml/min/1.73 sqM) Glucose (74-99) mg/dL Plasma Lactic Acid Marty (0.7-2.0) mmol/L Calcium (8.4-10.2) mg/dL Total Bilirubin (0.2-1.3) mg/dL AST (14-36) U/L ALT (4-34) U/L Alkaline Phosphatase (38-126) U/L Total Protein (6.3-8.2) g/dL Albumin (3.5-5.0) g/dL Lipase (23-300) U/L Urine Color Yellow Urine Appearance Cloudy H (Clear) Urine pH 5.5 (5.0-8.0) Ur Specific [place] 1.020 (1.001-1.035) Urine Protein Trace H (Negative) Urine Glucose (UA) Negative (Negative) Urine Ketones Negative (Negative) Urine Blood Large H (Negative) Urine Nitrite Negative (Negative) Urine Bilirubin Negative (Negative) Urine Urobilinogen <2.0 (<2.0) mg/dL Ur Leukocyte Esterase Large H (Negative) Urine RBC >182 H (0-5) /hpf Urine WBC 51 H (0-5) /hpf Ur Squamous Epith Cells 23 H (0-4) /hpf Urine Bacteria Moderate H (None) /hpf Urine Mucus Many H (None) /hpf Urine HCG, Qual Not Detected (Not Detectd) Disposition <Marisa Pete - Last Filed: 10/28/23 16:41> Is patient prescribed a controlled substance at d/c from ED?: No Time of Disposition: 20:45 <Shan Mendoza - Last Filed: 11/06/23 00:59> Clinical Impression: Kidney stone on left side, Left ureteral stone Disposition: HOME SELF-CARE Condition: Good Instructions (If sedation given, give patient instructions): Kidney Stones (ED) Referrals: Eric Manley DO [Primary Care Provider] - 1-2 days Clif Georges MD [STAFF PHYSICIAN] - 1-2 days
[2023-10-28 16:45] VITALS: RESP 18; TEMP 97.9
[2023-10-28] MEDS: KETOROLAC 15 MG/ML 1 ML VIAL IM STA (16:52)
[2023-10-28 17:28] LABS: ALT 16 U/L (4-34); AST 23 U/L (14-36); African American GFR (CKD) >90 (>60 ml/min/1.73 sqM); Albumin 4.6 g/dL (3.5-5.0); Alkaline Phosphatase 99 U/L (38-126); Anion Gap 7 mmol/L; Anisocytosis Slight; Basophils # (A) 0.1 k/uL (0-0.2); Basophils % (A) 0 %; Blood Urea Nitrogen 11 mg/dL (7-17); Calcium 10.1 mg/dL (8.4-10.2); Carbon Dioxide 22 mmol/L (22-30); Chloride 110 mmol/L (98-107); Eosinophils # (A) 0.3 k/uL (0-0.7); Eosinophils % (A) 2 %; Glucose 123 mg/dL (74-99); HCT 42.3 % (34.0-46.0); HGB 12.7 gm/dL (11.4-16.0); Hypochromasia Marked; Lipase 75 U/L (23-300); Lymphocytes # (A) 1.6 k/uL (1.0-4.8); Lymphocytes % (A) 11 %; MCH 22.3 pg (25.0-35.0); MCV 74.2 fL (80.0-100.0); Mean Platelet Volume 6.9; Microcytosis Moderate; Monocytes # (A) 0.6 k/uL (0-1.0); Monocytes % (A) 4 %; Neutrophils # (A) 11.8 k/uL (1.3-7.7); Neutrophils % (A) 81 %; Non-African American GFR(CKD) 85 (>60 ml/min/1.73 sqM); Platelet Count 429 k/uL (150-450); Potassium 4.2 mmol/L (3.5-5.1); RDW 17.2 % (11.5-15.5); Sodium 139 mmol/L (137-145); Total Bilirubin 0.4 mg/dL (0.2-1.3); Total Protein 6.8 g/dL (6.3-8.2); WBC 14.5 k/uL (3.8-10.6)
[2023-10-28 18:03] LABS: Appearance,Urine Cloudy (Clear); Bacteria,Urine Moderate /hpf; Bilirubin,Urine Negative (Negative); Blood,Urine Large (Negative); Color,Urine Yellow; Glucose,Urine (UA) Negative (Negative); Ketones,Urine Negative (Negative); Leukocyte Esterase,Urine Large (Negative); Mucus,Urine Many /hpf; Nitrite,Urine Negative (Negative); PH, Urine 5.5 (5.0-8.0); Protein,Urine Trace (Negative); RBC,Urine >182 /hpf (0-5); Squamous Epithelial Cell,Urine 23 /hpf (0-4); Urobilinogen,Urine <2.0 mg/dL (<2.0); WBC,Urine 51 /hpf (0-5)
[2023-10-28] MEDS: HYDROmorphone 1 MG/ML 1 ML SYRINGE IVP STA (19:01)
[2023-10-28] MEDS: SODIUM CHLORIDE 0.9% 1,000 ML IV STA (19:02)
[2023-10-28] MEDS: ONDANSETRON 4 MG/2 ML VIAL IVP STA (19:02)
--- NOTE | 2023-10-28 20:13 | CT ---
EXAMINATION TYPE: CT abdomen pelvis wo con DATE OF EXAM: 10/28/2023 COMPARISON: 08/01/2017 HISTORY: 38-year-old female with left flank pain CT DLP: 1050.4 mGycm. Automated exposure control for dose reduction was used. TECHNIQUE: Contiguous axial scanning of the abdomen and pelvis without IV contrast. Coronal and sagit sofía reconstructions performed. FINDINGS: Heart normal size without pericardial effusion. Lung bases clear without pleural effusion. Postsurgical change of sleeve gastrectomy. While the liver remains mildly enlarged at 18.2 cm. Overall attenuation has improved compared to 2018 . Gallbladder surgically absent. Adrenal glands, right kidney, spleen, pancreas show no gross abnormality by noncontrast CT. Minimal asymmetric fullness left renal collecting system with a 3 mm stone at the left UPJ. No dilated small bowel, free fluid, or free air. No mesenteric or retroperitoneal lymphadenopathy. Normal appendix. Minimal scattered stool. No pericolonic inflammatory change. Bladder is nondistended. A couple pelvic phleboliths. Uterus is anteverted. Follicular changes in bot h ovaries. No abnormal fluid collection in the pelvis or pelvic lymphadenopathy. Bones: Mild disc bulging L5-S1. IMPRESSION: 1. A 3 mm stone at the left UVJ. There is minimal asymmetric fullness of the left renal collecting s ystem without any significant obstructive uropathy seen at this time. 2. Interval sleeve gastrectomy with improvement in the previous hepatic steatosis.
[2023-10-28] MEDS: TAMSULOSIN 0.4 MG CAP.ER.24H PO STA (21:02)
[2023-10-28] MEDS: ONDANSETRON 4 MG ODT STARTER PACK 2 TAB BTL PO STA (21:03)
[2023-10-28] MEDS: ACET/COD 300 MG/30 MG STARTER PACK 6 TAB BTL PO STA (21:03)
[2023-10-28] MEDS: traMADol 50 MG STARTER PACK 3 TAB BTL PO STA (21:04)
[2023-10-28] MEDS: IBUPROFEN 600 MG STARTER PACK 4 TAB BTL PO STA (21:04)
[2023-10-28 21:15] VITALS: BP 110/71; PULSE 89
== END 2023-10-28 21:15 | disposition home or self-care (01) ==
LOC: EC 16:25
CPT/HCPCS: 36415; 74176; 80053; 81001; 81025; 83605; 83690; 85025; 96372; 96374; 96375; 99284

== ENCOUNTER 2023-11-05 04:05 | Inpatient (IN) | payer OTHER ==
--- NOTE | 2023-11-05 05:00 | ED ---
Recheck HPI - General Chief Complaint: Abdominal Pain Stated Complaint: ABD Pain - Kidney Stones Time Seen by Provider: 11/05/23 04:09 Source: patient, RN notes reviewed, old records reviewed Mode of arrival: ambulatory Limitations: no limitations - History of Present Illness Initial Comments: This is a 38-year-old female to the ER for evaluation of kidney stones with history of recent kidney stone diagnosis pain is now on the opposite side and is severe. She does not feel that she passed the first and original kidney stone MD Complaint: medication refill request, other (Possible recurrent or new kidney stone) -: days(s) Returns Today for: persistent/worsening pain related to initial visit Associated Symptoms: none - Related Data Home Medications Medication Instructions Recorded Confirmed ALPRAZolam [Xanax] 1 mg PO BID PRN 02/11/21 11/05/23 Omeprazole 20 mg PO DAILY 06/08/22 11/05/23 Sertraline [Zoloft] 150 mg PO DAILY 06/08/22 11/05/23 lamoTRIgine 150 mg PO BID 06/08/22 11/05/23 Topiramate [Topamax] 50 mg PO BID 10/05/22 11/05/23 Galcanezumab-Gnlm [Emgality Pen] 120 mg SQ QMONTHLY 11/05/23 11/05/23 Ketoconazole 2% Shampoo [Nizoral] 1 applic TOPICAL Q2D PRN 11/05/23 11/05/23 Phentermine HCl [Adipex-P] 37.5 mg PO DAILY 11/05/23 11/05/23 Rimegepant Sulfate [Nurtec Odt] 75 mg PO Q48H PRN 11/05/23 11/05/23 Previous Rx's Medication Instructions Recorded Ketorolac [Toradol] 10 mg PO Q6HR PRN 7 Days #28 tab 11/07/23 cefUROXime axetiL [Ceftin] 500 mg PO BID 5 Days #10 tab 11/07/23 Allergies Allergy/AdvReac Type Severity Reaction Status Date / Time fluconazole [From Diflucan] Allergy Rash/Hives Verified 11/05/23 09:17 sulfamethoxazole AdvReac Intermediate Nausea Verified 11/05/23 09:17 [From Bactrim] trimethoprim [From Bactrim] AdvReac Intermediate Nausea Verified 11/05/23 09:17 Review of Systems ROS Statement: Those systems with pertinent positive or pertinent negative responses have been documented in the HPI. ROS Other: All systems not noted in ROS Statement are negative. 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 Past Anesthesia/Blood Transfusion Reactions: No Reported Reaction Past Psychological History: Anxiety, Depression Smoking Status: Never smoker Past Alcohol Use History: None Reported Past Drug Use History: Marijuana - Past Family History Mother Family Medical History: No Reported History General Exam Limitations: no limitations General appearance: alert, in no apparent distress, anxious Head exam: Present: atraumatic, normocephalic, normal inspection Eye exam: Present: normal appearance, PERRL, EOMI. Absent: scleral icterus, conjunctival injection, periorbital swelling ENT exam: Present: normal exam, mucous membranes moist Neck exam: Present: normal inspection. Absent: tenderness, meningismus, lymphadenopathy Respiratory exam: Present: normal lung sounds bilaterally. Absent: respiratory distress, wheezes, rales, rhonchi, stridor Cardiovascular Exam: Present: regular rate, normal rhythm, normal heart sounds. Absent: systolic murmur, diastolic murmur, rubs, gallop, clicks GI/Abdominal exam: Present: soft, normal bowel sounds. Absent: distended, tenderness, guarding, rebound, rigid Extremities exam: Present: normal inspection, full ROM, normal capillary refill. Absent: tenderness, pedal edema, joint swelling, calf tenderness Back exam: Present: normal inspection Neurological exam: Present: alert, oriented X3, CN II-XII intact Psychiatric exam: Present: normal affect, normal mood Skin exam: Present: warm, dry, intact, normal color. Absent: rash Course Vital Signs 11/05/23 11/05/23 11/05/23 04:18 07:30 09:11 Temperature 97.9 F 98 F 97.6 F Pulse Rate 78 78 Pulse Rate [ 61 Right Brachial] Respiratory 18 16 16 Rate Blood Pressure 139/90 123/83 Blood Pressure 118/81 [Right Arm] O2 Sat by Pulse 99 98 97 Oximetry 09/06/24 09/06/24 10:32 15:00 Temperature Pulse Rate 77 77 Pulse Rate [ Right Brachial] Respiratory 20 18 Rate Blood Pressure 107/74 108/84 Blood Pressure [Right Arm] O2 Sat by Pulse 98 97 Oximetry - Reevaluation(s) Reevaluation #1: 11/05/23 06:37 Medical records reviewed Reevaluation #2: 11/05/23 06:37 Patient's pain is improved Reevaluation #3: Patient informed of results and questions answered Reevaluation #4: Was pt. sent in by a medical professional or institution (, [facility]LDON, OBSTETRICS TECHNICIAN, urgent care, hospital, or [facility]...) When possible be specific @ -no Did you speak to anyone other than the patient for history (EMS, parent, family, police, friend...)? What history was obtained from this source @ -no Did you review nursing and triage notes (agree or disagree)? Why? @ -agree Are old charts reviewed (outside hosp., previous admission, EMS record, old EKG, old radiological studies, urgent care reports/EKG's, [facility] records)? Report findings @ -yes Differential Diagnosis (chest pain, altered mental status, abdominal pain women, abdominal pain men, vaginal bleeding, weakness, fever, dyspnea, syncope, headache, dizziness, GI bleed, back pain, seizure, CVA, palpatations, mental health, musculoskeletal)? @ -prior EKG interpreted by me (3pts min.). @ -yes X-rays interpreted by me (1pt min.). @ -no CT interpreted by me (1pt min.). @ -yes positive for pyelonephritis positive for kidney stones U/S interpreted by me (1pt. min.). @ -no What testing was considered but not performed or refused? (CT, X-rays, U/S, labs)? Why? @ -none What meds were considered but not given or refused? Why? @ -none Did you discuss the management of the patient with other professionals (professionals i.e. SHELDON [place], OBSTETRICS TECHNICIAN, lab, RT, psych nurse, home health care social worker, paper counter, t eacher, president and chief operating officer, protective services case worker)? Give summary @ -no Was smoking cessation discussed for >3mins.? @ -no Was critical care preformed (if so, how long)? @ -yes31 Were there social determinants of health that impacted care today? How? (Homelessness, low income, unemployed, alcoholism, drug addiction, transportation, low edu. Level, literacy, decrease access to med. care, nursing home, rehab)? @ -none Was there de-escalation of care discussed even if they declined (Discuss DNR or withdrawal of care, Hospice)? DNR status @ -no What co-morbidities impacted this encounter? (DM, HTN, Smoking, COPD, CAD, Cancer, CVA, ARF, Chemo, Hep., AIDS, mental health diagnosis, sleep apnea, morbid obesity)? @ -none Was patient admitted / discharged? Hospital course, mention meds given and route, prescriptions, significant lab abnormalities, going to OR and other pertinent info. @ - 38 female with kidney stone history of recent diagnosis of kidney stone now with likely bilateral kidney stone and pyelonephritis. Patient will be admitted for IV antibiotics and urology evaluation Admitted Undiagnosed new problem with uncertain prognosis? @ -no Drug Therapy requiring intensive monitoring for toxicity (Heparin, Nitro, Insulin, Cardizem)? @ -no Were any procedures done? @ -no Diagnosis/symptom? @ -Bilateral kidney stones with pyelonephritis, septic kidney stone Acute, or Chronic, or Acute on Chronic? @ -Acute Uncomplicated (without systemic symptoms) or Complicated (systemic symptoms)? @ -Complicated Side effects of treatment? @ -no Exacerbation, Progression, or Severe Exacerbation? @ -exacerbation Poses a threat to life or bodily function? How? (Chest pain, [place], [place], pneumonia, PE, COPD, DKA, ARF, appy, cholecystitis, CVA, Diverticulitis, Homicidal, Suicidal, threat to staff... and all critical care pts) @ -yes severe sepsis Reevaluation #5: Differential abdominal pain - Consultations Consultation #1: Spoke with many physicians who agreed to admit this patient Consultation #2: Spoke with Dr. Mensah who will see this patient Medical Decision Making - Medical Decision Making 38 female with kidney stone history of recent diagnosis of kidney stone now with likely bilateral kidney stone and pyelonephritis. Patient will be admitted for IV antibiotics and urology evaluation - Lab Data Result diagrams: 11/06/23 06:23 11/06/23 06:23 Lab Results 11/05/23 11/05/23 11/05/23 Range/Units 04:51 04:51 04:51 WBC 11.7 H (3.8-10.6) k/uL RBC 4.94 (3.80-5.40) m/uL Hgb 11.4 (11.4-16.0) gm/dL Hct 36.5 (34.0-46.0) % MCV 74.0 L (80.0-100.0) fL MCH 23.0 L (25.0-35.0) pg MCHC 31.1 (31.0-37.0) g/dL RDW 17.3 H (11.5-15.5) % Plt Count 355 (150-450) k/uL MPV 6.4 Neutrophils % 78 % Lymphocytes % 13 % Monocytes % 5 % Eosinophils % 3 % Basophils % 0 % Neutrophils # 9.1 H (1.3-7.7) k/uL Lymphocytes # 1.5 (1.0-4.8) k/uL Monocytes # 0.5 (0-1.0) k/uL Eosinophils # 0.4 (0-0.7) k/uL Basophils # 0.0 (0-0.2) k/uL Hypochromasia Marked Anisocytosis Slight Microcytosis Moderate Sodium (137-145) mmol/L Potassium (3.5-5.1) mmol/L Chloride (98-107) mmol/L Carbon Dioxide (22-30) mmol/L Anion Gap mmol/L BUN (7-17) mg/dL Creatinine (0.52-1.04) mg/dL Est GFR (CKD-EPI)AfAm (>60 ml/min/1.73 sqM) Est GFR (CKD-EPI)NonAf (>60 ml/min/1.73 sqM) Glucose (74-99) mg/dL Plasma Lactic Acid Marty (0.7-2.0) mmol/L Calcium (8.4-10.2) mg/dL Total Bilirubin (0.2-1.3) mg/dL AST (14-36) U/L ALT (4-34) U/L Alkaline Phosphatase (38-126) U/L Total Protein (6.3-8.2) g/dL Albumin (3.5-5.0) g/dL Amylase (30-110) U/L Lipase (23-300) U/L Urine Color Colorless Urine Appearance Cloudy H (Clear) Urine pH 7.0 (5.0-8.0) Ur Specific [place] 1.014 (1.001-1.035) Urine Protein Negative (Negative) Urine Glucose (UA) Negative (Negative) Urine Ketones Negative (Negative) Urine Blood Negative (Negative) Urine Nitrite Negative (Negative) Urine Bilirubin Negative (Negative) Urine Urobilinogen <2.0 (<2.0) mg/dL Ur Leukocyte Esterase Negative (Negative) Urine RBC 1 (0-5) /hpf Urine WBC 2 (0-5) /hpf Ur Squamous Epith Cells 1 (0-4) /hpf Amorphous Sediment Few H (None) /hpf Urine Bacteria Rare H (None) /hpf Hyaline Casts 2 (0-2) /lpf Urine Mucus Rare H (None) /hpf Urine HCG, Qual Not Detected (Not Detectd) 11/05/23 11/05/23 Range/Units 04:51 04:51 WBC (3.8-10.6) k/uL RBC (3.80-5.40) m/uL Hgb (11.4-16.0) gm/dL Hct (34.0-46.0) % MCV (80.0-100.0) fL MCH (25.0-35.0) pg MCHC (31.0-37.0) g/dL RDW (11.5-15.5) % Plt Count (150-450) k/uL MPV Neutrophils % % Lymphocytes % % Monocytes % % Eosinophils % % Basophils % % Neutrophils # (1.3-7.7) k/uL Lymphocytes # (1.0-4.8) k/uL Monocytes # (0-1.0) k/uL Eosinophils # (0-0.7) k/uL Basophils # (0-0.2) k/uL Hypochromasia Anisocytosis Microcytosis Sodium 134 L (137-145) mmol/L Potassium 4.3 (3.5-5.1) mmol/L Chloride 107 (98-107) mmol/L Carbon Dioxide 19 L (22-30) mmol/L Anion Gap 8 mmol/L BUN 10 (7-17) mg/dL Creatinine 0.84 (0.52-1.04) mg/dL Est GFR (CKD-EPI)AfAm >90 (>60 ml/min/1.73 sqM) Est GFR (CKD-EPI)NonAf 88 (>60 ml/min/1.73 sqM) Glucose 94 (74-99) mg/dL Plasma Lactic Acid Marty 0.8 (0.7-2.0) mmol/L Calcium 9.2 (8.4-10.2) mg/dL Total Bilirubin 0.4 (0.2-1.3) mg/dL AST 19 (14-36) U/L ALT 14 (4-34) U/L Alkaline Phosphatase 96 (38-126) U/L Total Protein 6.0 L (6.3-8.2) g/dL Albumin 4.0 (3.5-5.0) g/dL Amylase 45 (30-110) U/L Lipase 40 (23-300) U/L Urine Color Urine Appearance (Clear) Urine pH (5.0-8.0) Ur Specific [place] (1.001-1.035) Urine Protein (Negative) Urine Glucose (UA) (Negative) Urine Ketones (Negative) Urine Blood (Negative) Urine Nitrite (Negative) Urine Bilirubin (Negative) Urine Urobilinogen (<2.0) mg/dL Ur Leukocyte Esterase (Negative) Urine RBC (0-5) /hpf Urine WBC (0-5) /hpf Ur Squamous Epith Cells (0-4) /hpf Amorphous Sediment (None) /hpf Urine Bacteria (None) /hpf Hyaline Casts (0-2) /lpf Urine Mucus (None) /hpf Urine HCG, Qual (Not Detectd) - Radiology Data Radiology results: report reviewed (CT on pelvis positive kidney stone positive pyelonephritis bilateral kidney stone), image reviewed Critical Care Time Critical Care Time: Yes Total Critical Care Time: 31 Disposition Clinical Impression: Kidney stone on left side, Left ureteral stone, Pyelonephritis, Hydronephrosis, Abdominal pain, Sepsis Disposition: ADMITTED IP TO THIS [facility] Condition: Fair Is patient prescribed a controlled substance at d/c from ED?: No Time of Disposition: 07:00
[2023-11-05] MEDS: SODIUM CHLORIDE 0.9% 1,000 ML IV STA ×2 (05:03→05:55)
[2023-11-05] MEDS: SODIUM CHLORIDE 0.9% 500 ML 500 ML IV STA (05:03)
[2023-11-05] MEDS: ONDANSETRON 4 MG/2 ML VIAL IVP STA (05:05)
[2023-11-05] MEDS: KETOROLAC 15 MG/ML 1 ML VIAL IVP STA (05:08)
[2023-11-05 05:17] LABS: Anisocytosis Slight; Basophils % (A) 0 %; Eosinophils # (A) 0.4 k/uL (0-0.7); Eosinophils % (A) 3 %; HCT 36.5 % (34.0-46.0); HGB 11.4 gm/dL (11.4-16.0); Hypochromasia Marked; Lymphocytes # (A) 1.5 k/uL (1.0-4.8); Lymphocytes % (A) 13 %; MCHC 31.1 g/dL (31.0-37.0); Mean Platelet Volume 6.4; Microcytosis Moderate; Monocytes # (A) 0.5 k/uL (0-1.0); Monocytes % (A) 5 %; Neutrophils # (A) 9.1 k/uL (1.3-7.7); Neutrophils % (A) 78 %; Platelet Count 355 k/uL (150-450); RBC 4.94 m/uL (3.80-5.40); RDW 17.3 % (11.5-15.5); WBC 11.7 k/uL (3.8-10.6)
[2023-11-05 05:29] LABS: ALT 14 U/L (4-34); AST 19 U/L (14-36); African American GFR (CKD) >90 (>60 ml/min/1.73 sqM); Alkaline Phosphatase 96 U/L (38-126); Amylase 45 U/L (30-110); Anion Gap 8 mmol/L; Blood Urea Nitrogen 10 mg/dL (7-17); Calcium 9.2 mg/dL (8.4-10.2); Carbon Dioxide 19 mmol/L (22-30); Chloride 107 mmol/L (98-107); Glucose 94 mg/dL (74-99); Lipase 40 U/L (23-300); Non-African American GFR(CKD) 88 (>60 ml/min/1.73 sqM); Potassium 4.3 mmol/L (3.5-5.1); Sodium 134 mmol/L (137-145); Total Bilirubin 0.4 mg/dL (0.2-1.3)
[2023-11-05] MEDS: HYDROmorphone 1 MG/ML 1 ML SYRINGE IVP STA (05:36)
[2023-11-05 05:44] LABS: Amorphous Sediment,Urine Few /hpf; Appearance,Urine Cloudy (Clear); Bacteria,Urine Rare /hpf; Bilirubin,Urine Negative (Negative); Blood,Urine Negative (Negative); Color,Urine Colorless; Glucose,Urine (UA) Negative (Negative); Hyaline Casts,Urine 2 /lpf (0-2); Ketones,Urine Negative (Negative); Leukocyte Esterase,Urine Negative (Negative); Mucus,Urine Rare /hpf; Nitrite,Urine Negative (Negative); Protein,Urine Negative (Negative); RBC,Urine 1 /hpf (0-5); Specific Gravity,Urine 1.014 (1.001-1.035); Squamous Epithelial Cell,Urine 1 /hpf (0-4); Urobilinogen,Urine <2.0 mg/dL (<2.0); WBC,Urine 2 /hpf (0-5)
--- NOTE | 2023-11-05 07:04 | CT ---
EXAM: CT Abdomen and Pelvis Without Intravenous Contrast CLINICAL HISTORY: ITS.REASON CT Reason: pain right flank pain that started last night hx of kidney stones TECHNIQUE: Axial computed tomography images of the abdomen and pelvis without intravenous contrast. CTDI is 17.8 mGy and DLP is 1129.4 mGy-cm. This CT exam was performed using one or more of the following dose reduction techniques: automated exposure control, adjustment of the mA and/or kV according to patient size, and/or use of iterative reconstruction technique. COMPARISON: CT Abdomen Pelvis dated 10/28/2023 FINDINGS: Lung bases: Unremarkable. No mass. No consolidation. ABDOMEN: Liver: Unremarkable. Gallbladder and bile ducts: Absent gallbladder. No ductal dilation. Pancreas: Unremarkable. No ductal dilation. Spleen: Unremarkable. No splenomegaly. Adrenals: Unremarkable. No mass. Kidneys and ureters: New mild right hydroureteronephrosis and new perinephric/periureteral fat stranding. No right ureteral or renal calculus visualized. Similar appearance of the 3 mm calcification in the proximal left ureter. Similar mild fullness of the left collecting system. Stomach and bowel: Gastric sleeve procedure as on the prior. No obstruction. No mucosal thickening. PELVIS: Appendix: Normal appendix. Bladder: Unremarkable. No stones. Reproductive: Unremarkable as visualized. ABDOMEN and PELVIS: Intraperitoneal space: Unremarkable. No free air. No significant fluid collection. Bones/joints: No acute fracture. No dislocation. Soft tissues: Small umbilical hernia containing fat. Vasculature: Unremarkable. No abdominal aortic aneurysm. Lymph nodes: Unremarkable. No enlarged lymph nodes. IMPRESSION: 1. New mild right hydroureteronephrosis and new perinephric/periureteral fat stranding. May represent a recently passed calculus, nonvisualized obstructing calculus, infection. 2. Similar appearance of 3 mm calcification in the proximal left ureter. Similar mild fullness of the left collecting system. Unclear if it is causing obstruction at this time.
[2023-11-05] MEDS ORDERED: NALOXONE 0.4 MG/ML 1 ML VIAL IV PRN (07:15)
[2023-11-05] MEDS: SODIUM CHLORIDE 0.9% 1,000 ML IV SCH (07:38)
[2023-11-05] MEDS: HYDROmorphone 1 MG/ML 1 ML SYRINGE IVP PRN (09:40)
[2023-11-05] MEDS ORDERED: PATIENT'S OWN (Rimegepant Sulfate [Nurtec Odt] 75 MG Tablet) PO PRN (10:47)
[2023-11-05] MEDS: SERTRALINE 100 MG TAB PO SCH (11:44)
[2023-11-05] MEDS: lamoTRIgine 100 MG TAB PO SCH (11:45)
[2023-11-05] MEDS: PANTOPRAZOLE 40 MG TABLET PO SCH (11:45)
[2023-11-05] MEDS: PATIENT'S OWN (Phentermine Hcl [Adipex-P] 37.5 MG Tablet) PO SCH (11:46)
--- NOTE | 2023-11-05 14:45 | P.HPIM ---
History of Present Illness H&P Date: 11/05/23 Chief Complaint: Bilateral flank pain This is a 38-year-old obese female with past medical history significant for kidney stones, spontaneously passed, laparoscopic sleeve gastrectomy, IBS, anxiety, depression, marijuana use and multiple other medical issues presented to the ER with complaints of bilateral flank pain shifting to greater on the right side. Patient initially presented to the ER on 10/27 for left flank pain, CT at that time reported a 3 mm stone at the left UVJ, minimal asymmetric fullness of the left renal collecting system without significant obstructive uropathy and patient was discharged home. Patient reports she does not feel as if she passed her previous stone and now experiencing more severe pain on the right. CT of abdomen pelvis reporting new mild right hydroureteronephrosis and new perinephritic/periureteral fat standing. May represent recently passed calculus, nonvisualized obstructing calculus, infection. Similar appearance of 3 mm calcification in the proximal left ureter, similar mild fullness of the left collecting system unclear if it is causing obstruction at this time. UA negative. afebrile, WBC 11.7. Hemoglobin 11.4 platelets 355 sodium 134, potassium 4.3, bicarb 19, BUN 10, creatinine 0.84, lactic acid 0.8. IV fluids, antibiotics and pain management initiated in the ER. Urology consulted. Review of Systems ROS Statement: Those systems with pertinent positive or pertinent negative responses have been documented in the HPI. ROS Other: All systems not noted in ROS Statement are negative. 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 Past Anesthesia/Blood Transfusion Reactions: No Reported Reaction Past Psychological History: Anxiety, Depression Smoking Status: Never smoker Past Alcohol Use History: None Reported Past Drug Use History: Marijuana - Past Family History Mother Family Medical History: No Reported History Medications and Allergies Home Medications Medication Instructions Recorded Confirmed Type ALPRAZolam [Xanax] 1 mg PO BID PRN 02/11/21 11/05/23 History Omeprazole 20 mg PO DAILY 06/08/22 11/05/23 History Sertraline [Zoloft] 150 mg PO DAILY 06/08/22 11/05/23 History lamoTRIgine 150 mg PO BID 06/08/22 11/05/23 History Topiramate [Topamax] 50 mg PO BID 10/05/22 11/05/23 History Galcanezumab-Gnlm [Emgality Pen] 120 mg SQ QMONTHLY 11/05/23 11/05/23 History Ketoconazole 2% Shampoo [Nizoral] 1 applic TOPICAL Q2D PRN 11/05/23 11/05/23 History Phentermine HCl [Adipex-P] 37.5 mg PO DAILY 11/05/23 11/05/23 History Rimegepant Sulfate [Nurtec Odt] 75 mg PO Q48H PRN 11/05/23 11/05/23 History Allergies Allergy/AdvReac Type Severity Reaction Status Date / Time fluconazole [From Diflucan] Allergy Rash/Hives Verified 11/05/23 09:17 sulfamethoxazole AdvReac Intermediate Nausea Verified 11/05/23 09:17 [From Bactrim] trimethoprim [From Bactrim] AdvReac Intermediate Nausea Verified 11/05/23 09:17 Physical Exam Vitals: Vital Signs Temp Pulse Resp BP Pulse Ox 11/05/23 10:32 77 20 107/74 98 11/05/23 07:30 98 F 78 16 123/83 98 11/05/23 04:18 97.9 F 78 18 139/90 99 Intake and Output 11/04/23 11/05/23 11/05/23 22:59 06:59 14:59 Intake Total 1500 Balance 1500 Intake: IV 1500 Invasive Line 1 1500 Other: Voiding Method Toilet Weight 104.326 kg PHYSICAL EXAM: VITAL SIGNS: As above GENERAL: Alert and oriented x 3, sitting up on stretcher, no acute distress HEENT: Conjunctivae normal. eyes normal. NECK: No JVD. No thyroid enlargement. No LNs CARDIOVASCULAR: S1, S2 regular. No murmur RESPIRATION: Breath sounds diminished in the bases. No rhonchi or crackles. No bronchial breathing. ABDOMEN: Soft, bilateral flank tenderness, greatest on the right ,no guarding. Bowel sounds heard. LEGS: No edema. no swelling NERVOUS SYSTEM: Cranial N 2-12 grossly normal. No focal deficits. Strength and sensation grossly intact.. Skin: Warm and dry, no rash Results CBC & Chem 7: 11/05/23 04:51 11/05/23 04:51 Labs: Abnormal Lab Results - Last 24 Hours (Table) 11/05/23 11/05/23 11/05/23 Range/Units 04:51 04:51 04:51 WBC 11.7 H (3.8-10.6) k/uL MCV 74.0 L (80.0-100.0) fL MCH 23.0 L (25.0-35.0) pg RDW 17.3 H (11.5-15.5) % Neutrophils # 9.1 H (1.3-7.7) k/uL Sodium 134 L (137-145) mmol/L Carbon Dioxide 19 L (22-30) mmol/L Total Protein 6.0 L (6.3-8.2) g/dL Urine Appearance Cloudy H (Clear) Amorphous Sediment Few H (None) /hpf Urine Bacteria Rare H (None) /hpf Urine Mucus Rare H (None) /hpf Assessment and Plan Assessment: Kidney stones, bilateral, hydroureteronephrosis, pyelonephritis Gastroesophageal reflux disease History of laparoscopic sleeve gastrectomy Morbid obesity, BMI 36 History of IBS Anxiety Depression Marijuana use Seasonal allergies Plan: Continue on current medication regimen ,monitoring and symptomatic treatment.Evaluated by urology, scheduled for cystoscopy tomorrow. IV fluid hydration, pain management and antibiotics. PPI for GI prophylaxis,TEDS for DVT prophylaxis. Antiemetics in place. The impression and plan of care has been dictated as directed. : I performed a history and examination of this patient, discussed the same with the dictator. I agree with the dictator's note ,documented as a scribe. Any additional findings or plans will be noted.
[2023-11-05] MEDS: ONDANSETRON 4 MG/2 ML VIAL IVP PRN (16:31)
[2023-11-05] MEDS: ALPRAZolam 1 MG TAB PO PRN (21:26)
[2023-11-05] MEDS: TOPIRAMATE 25 MG TAB PO SCH (21:27)
--- NOTE | 2023-11-05 21:34 | P.GSCN ---
History of Present Illness Consult date: 11/05/23 Reason for Consult: Bilateral ureteral stones History of present illness: This is a 38-year-old female presented to the hospital with bilateral flank pain, associated with nausea and vomiting. She had a ER presentation on October 27 at that time underwent a CT abdomen and pelvis that showed evidence of a 3 mm left-sided proximal stone, she presented to the hospital this morning with increasing left flank pain, and now new onset right flank pain. Denies any dysuria or gross hematuria. Underwent a CT abdomen and pelvis in the ER that showed evidence of a 3 mm left-sided proximal stone and right-sided hydronephrosis, on the report no clear evidence of stone but on review of imaging there appears to be a 1 mm stone at the UVJ. She is still making urine and her creatinine is 0.8. No previous history of kidney stones, no known family history of kidney stones. 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 Past Anesthesia/Blood Transfusion Reactions: No Reported Reaction Past Psychological History: Anxiety, Depression Smoking Status: Never smoker Past Alcohol Use History: None Reported Past Drug Use History: Marijuana - Past Family History Mother Family Medical History: No Reported History Medications and Allergies Home Medications Medication Instructions Recorded Confirmed Type ALPRAZolam [Xanax] 1 mg PO BID PRN 02/11/21 11/05/23 History Omeprazole 20 mg PO DAILY 06/08/22 11/05/23 History Sertraline [Zoloft] 150 mg PO DAILY 06/08/22 11/05/23 History lamoTRIgine 150 mg PO BID 06/08/22 11/05/23 History Topiramate [Topamax] 50 mg PO BID 10/05/22 11/05/23 History Galcanezumab-Gnlm [Emgality Pen] 120 mg SQ QMONTHLY 11/05/23 11/05/23 History Ketoconazole 2% Shampoo [Nizoral] 1 applic TOPICAL Q2D PRN 11/05/23 11/05/23 History Phentermine HCl [Adipex-P] 37.5 mg PO DAILY 11/05/23 11/05/23 History Rimegepant Sulfate [Nurtec Odt] 75 mg PO Q48H PRN 11/05/23 11/05/23 History Allergies Allergy/AdvReac Type Severity Reaction Status Date / Time fluconazole [From Diflucan] Allergy Rash/Hives Verified 11/05/23 09:17 sulfamethoxazole AdvReac Intermediate Nausea Verified 11/05/23 09:17 [From Bactrim] trimethoprim [From Bactrim] AdvReac Intermediate Nausea Verified 11/05/23 09:17 Surgical - Exam Vital Signs Temp Pulse Resp BP Pulse Ox 97.9 F 78 18 139/90 99 11/05/23 04:18 11/05/23 04:18 11/05/23 04:18 11/05/23 04:18 11/05/23 04:18 - General no distress, no pain - Eyes normal ocular movement, no pale - ENT normal nares, normal mucosa - Respiratory normal expansion, normal respiratory effort - Abdomen Abdomen: soft, non tender - Psychiatric oriented to time, oriented to person, oriented to place Results - Labs 11/05/23 04:51 11/05/23 04:51 Abnormal Lab Results - Last 24 Hours (Table) 11/05/23 11/05/23 11/05/23 Range/Units 04:51 04:51 04:51 WBC 11.7 H (3.8-10.6) k/uL MCV 74.0 L (80.0-100.0) fL MCH 23.0 L (25.0-35.0) pg RDW 17.3 H (11.5-15.5) % Neutrophils # 9.1 H (1.3-7.7) k/uL Sodium 134 L (137-145) mmol/L Carbon Dioxide 19 L (22-30) mmol/L Total Protein 6.0 L (6.3-8.2) g/dL Urine Appearance Cloudy H (Clear) Amorphous Sediment Few H (None) /hpf Urine Bacteria Rare H (None) /hpf Urine Mucus Rare H (None) /hpf Diabetes panel 11/05/23 Range/Units 04:51 Sodium 134 L (137-145) mmol/L Potassium 4.3 (3.5-5.1) mmol/L Chloride 107 (98-107) mmol/L Carbon Dioxide 19 L (22-30) mmol/L BUN 10 (7-17) mg/dL Creatinine 0.84 (0.52-1.04) mg/dL Glucose 94 (74-99) mg/dL Calcium 9.2 (8.4-10.2) mg/dL AST 19 (14-36) U/L ALT 14 (4-34) U/L Alkaline Phosphatase 96 (38-126) U/L Total Protein 6.0 L (6.3-8.2) g/dL Albumin 4.0 (3.5-5.0) g/dL Calcium panel 11/05/23 Range/Units 04:51 Calcium 9.2 (8.4-10.2) mg/dL Albumin 4.0 (3.5-5.0) g/dL Pituitary panel 11/05/23 Range/Units 04:51 Sodium 134 L (137-145) mmol/L Potassium 4.3 (3.5-5.1) mmol/L Chloride 107 (98-107) mmol/L Carbon Dioxide 19 L (22-30) mmol/L BUN 10 (7-17) mg/dL Creatinine 0.84 (0.52-1.04) mg/dL Glucose 94 (74-99) mg/dL Calcium 9.2 (8.4-10.2) mg/dL Adrenal panel 11/05/23 Range/Units 04:51 Sodium 134 L (137-145) mmol/L Potassium 4.3 (3.5-5.1) mmol/L Chloride 107 (98-107) mmol/L Carbon Dioxide 19 L (22-30) mmol/L BUN 10 (7-17) mg/dL Creatinine 0.84 (0.52-1.04) mg/dL Glucose 94 (74-99) mg/dL Calcium 9.2 (8.4-10.2) mg/dL Total Bilirubin 0.4 (0.2-1.3) mg/dL AST 19 (14-36) U/L ALT 14 (4-34) U/L Alkaline Phosphatase 96 (38-126) U/L Total Protein 6.0 L (6.3-8.2) g/dL Albumin 4.0 (3.5-5.0) g/dL Assessment and Plan Assessment: 38-year-old female with history of bilateral obstructive ureteral stones causing bilateral hydronephrosis, patient is having bilateral flank pain, on review of imaging evidence of a 3 mm left proximal stone and a 1 mm right-sided UVJ stone, discussed given the bilateral hydronephrosis I do recommend proceeding with stone removal. Option of bilateral ureteroscopy with holmium laser was d iscussed. Aware of the risk which includes but not limited to bleeding, infection, injury to the ureter.
[2023-11-06 06:34] LABS: Anisocytosis Slight; Basophils % (A) 0 %; Eosinophils # (A) 0.3 k/uL (0-0.7); Eosinophils % (A) 3 %; HCT 35.9 % (34.0-46.0); HGB 10.8 gm/dL (11.4-16.0); Hypochromasia Marked; Lymphocytes # (A) 1.2 k/uL (1.0-4.8); Lymphocytes % (A) 15 %; MCH 22.9 pg (25.0-35.0); MCV 76.1 fL (80.0-100.0); Mean Platelet Volume 7.2; Microcytosis Slight; Monocytes # (A) 0.3 k/uL (0-1.0); Monocytes % (A) 4 %; Neutrophils % (A) 77 %; Platelet Count 312 k/uL (150-450); RBC 4.71 m/uL (3.80-5.40); RDW 17.8 % (11.5-15.5); WBC 7.9 k/uL (3.8-10.6)
[2023-11-06 07:04] LABS: African American GFR (CKD) >90 (>60 ml/min/1.73 sqM); Carbon Dioxide 23 mmol/L (22-30); Non-African American GFR(CKD) >90 (>60 ml/min/1.73 sqM)
[2023-11-06 07:09] LABS: Blood Urea Nitrogen 6 mg/dL (7-17); Chloride 111 mmol/L (98-107); Glucose 83 mg/dL (74-99)
[2023-11-06 08:50] LABS: Anion Gap 4 mmol/L; Calcium 8.9 mg/dL (8.4-10.2); Potassium 3.9 mmol/L (3.5-5.1); Sodium 138 mmol/L (137-145)
[2023-11-06] MEDS ORDERED: ROCURONIUM 10 MG/ML (5 ML VIAL) IV ONE (09:21)
[2023-11-06] MEDS ORDERED: fentaNYL (PF) 50 MCG/ML 2 ML AMP ONE (09:21)
[2023-11-06] MEDS ORDERED: ONDANSETRON 4 MG/2 ML VIAL ONE (09:21)
[2023-11-06] MEDS ORDERED: ceFAZolin 1 GM/50 ML BAG (PMX) ONE (09:21)
[2023-11-06] MEDS ORDERED: SUGAMMADEX SODIUM 200 MG/2 ML SDV IV ONE (09:21)
[2023-11-06] MEDS ORDERED: DEXAMETHASONE SOD PHOSPHATE 4 MG/ML 1 ML VIAL ONE (09:21)
[2023-11-06] MEDS ORDERED: MIDAZOLAM 2 MG/2 ML VIAL ONE (09:21)
[2023-11-06] MEDS ORDERED: PROPOFOL 10 MG/ML 20 ML VIAL IV ONE (09:21)
[2023-11-06] MEDS ORDERED: SUCCINYLCHOLINE CHLORIDE 200 MG/10 ML VIAL IV ONE (09:21)
[2023-11-06] MEDS: SODIUM CHLORIDE 0.9% 1,000 ML IV ONE (09:25)
--- NOTE | 2023-11-06 09:32 | P.PN ---
Subjective Progress Note Date: 11/06/23 Continues to have bilateral flank pain this morning. Denies any dysuria gross materia Objective - Vital Signs Vital signs: Vital Signs Temp 97.9 F 11/06/23 07:37 Pulse 92 11/06/23 07:37 Resp 16 11/06/23 07:37 BP 104/72 11/06/23 07:37 Pulse Ox 99 11/06/23 00:00 FiO2 Intake & Output 11/05/23 11/06/23 11/06/23 18:59 06:59 18:59 Weight 104.326 kg Other: # Voids 1 - Constitutional General appearance: Present: no acute distress - Gastrointestinal General gastrointestinal: Present: soft. Absent: distended, tenderness - Psychiatric Psychiatric: Present: A&O x's 3 - Labs CBC & Chem 7: 11/06/23 06:23 11/06/23 06:23 Labs: Abnormal Lab Results - Last 24 Hours (Table) 11/06/23 11/06/23 Range/Units 06:23 06:23 Hgb 10.8 L (11.4-16.0) gm/dL MCV 76.1 L (80.0-100.0) fL MCH 22.9 L (25.0-35.0) pg MCHC 30.0 L (31.0-37.0) g/dL RDW 17.8 H (11.5-15.5) % Chloride 111 H (98-107) mmol/L BUN 6 L (7-17) mg/dL Assessment and Plan Assessment: 38-year-old female with history of bilateral obstructive ureteral stones causing bilateral hydronephrosis, patient is having bilateral flank pain, on review of imaging evidence of a 3 mm left proximal stone and a 1 mm right-sided UVJ stone, discussed given the bilateral hydronephrosis I do recommend proceeding with stone removal. Option of bilateral ureteroscopy with holmium laser was discussed. Aware of the risk which includes but not limited to bleeding, inf ection, injury to the ureter. -OR for bilateral ureteroscopy with holmium laser lithotripsy, stone basketing and stent insertion
[2023-11-06] MEDS: SODIUM CHLORIDE 0.9% 100 ML with ceFAZolin 2,000 MG IV ONE (09:47)
[2023-11-06] MEDS: IOPAMIDOL-300 100ML BTL MISCELLANE ONE (10:00)
[2023-11-06] MEDS: LACTATED RINGERS 1,000 ML IV ONE ×2 (10:02)
--- NOTE | 2023-11-06 10:31 | P.OP ---
Date of Procedure: 11/06/23 Preoperative Diagnosis: Bilateral hydronephrosis, left ureteral stone Postoperative Diagnosis: Same Procedure(s) Performed: Cystoscopy, bilateral ureteroscopy, left-sided holmium laser lithotripsy, stone basketing, balloon dilation and bilateral stent insertion Implants: 6 Nigerien by 24 cm stents in the bilateral ureters Anesthesia: DOM Surgeon: Azael Mensah Estimated Blood Loss (ml): 5 Pathology: none sent Condition: stable Disposition: PACU Indications for Procedure: 38-year-old female with history of bilateral obstructive ureteral stones causing bilateral hydronephrosis, patient is having bilateral flank pain, on review of imaging evidence of a 3 mm left proximal stone and a 1 mm right-sided UVJ stone, discussed given the bilateral hydronephrosis I do recommend proceeding with stone removal. Option of bilateral ureteroscopy with holmium laser was discussed. Aware of the risk which includes but not limited to bleeding, infection, injury to the ureter. Operative Findings: Left ureteral stone, Description of Procedure: Patient brought the operating, dry anesthesia was induced. She was prepped and draped in sterile fashion placed in dorsolithotomy position. Cystoscopy fitted with a 21 Nigerien sheath was inserted per urethra, cystoscopy was performed showed no abnormality within the bladder. Attention was then carried to the right ureteral orifice, a semirigid ureteroscope was advanced per urethra and up the right ureteral orifice, at this point 2 cm from the UVJ and area of narrowing was seen at the ureter, I was unable to advance the scope past the narrowing, at this point a sensor wire was advanced through and the scope was removed with the wire in place. Next using the 11 Nigerien inner part of the access sheath this was advanced over the wire and that area was dilated under fluoroscopy. At this time the semirigid ureteroscope was reinserted and I was able to advance the scope past that area proximal to that the ureter was dilated, I did not visualize any stone, I advanced the scope all the way up to the proximal ureter which showed no stone but the entire ureter was dilated. Pullback ureteroscopy was performed showed no injury to the ureter or any ureter al stones, as ureteroscope was withdrawn a sensor wire was advanced through. Next a ureteral stent was passed over the wire, the proximal curl visualized on fluoroscopy and the distal curl was visualized using the cystoscope. At this time attention was carried to the left side, I advanced the ureteroscope through the left ureteral orifice, and at the level of the distal ureter, there was an area of narrowing, at this point the wire was advanced through the ureteroscope and the ureteroscope was withdrawn with the wire in place. Next a 15 Nigerien balloon dilator was advanced over the wire and the narrowed area was dilated under fluoroscopy to 15 Nigerien. This time the semirigid ureteroscope was reinserted and advanced up the left ureter, the scope was advanced to the level of the left proximal ureter which showed no stones, I was unable to advance the scope past that portion given the angle of the ureter, at this point a sensor wire was advanced with the ureteroscope and the ureteroscope was withdrawn with the wire in place. Next an 1113 Nigerien access sheath was passed over the wire and into the proximal ureter. The flexible ureteroscope was inserted through the access sheath, at this point at the level of the proximal ureter an additional area of narrowing was encountered, at this point I advanced a wire through the ureteroscope and the narrowed area was dilated under fluoroscopy using a balloon dilator to 15 Nigerien. The balloon dilator was removed and the ureteroscope was reinserted, at this point I advanced the scope into the kidney, a stone was seen at the UPJ. Using the holmium laser the stone was fragmented, stone fragments were removed using the stone basket. Repeat renoscopy showed no sizable fragments or injury to the kidney. Pullback ureteroscopy was performed showed no injury to the ureter or any ureteral stones, as ureteroscope was withdrawn a sensor wire was advanced through. Next a ureteral stent was passed over the wire, the proximal curl was visualized on fluoroscopy and the distal curl was realized in the cystoscope. The bladder was emptied at the end of the case. At this time she will follow-up as an outpatient in 1 to 2 weeks for cys toscopy with bilateral stent removal
[2023-11-06] MEDS: ACETAMINOPHEN TAB 500 MG TAB PO PRN (13:13)
--- NOTE | 2023-11-06 14:17 | P.PN ---
Subjective Progress Note Date: 11/06/23 This is a 38-year-old obese female with past medical history significant for kidney stones, spontaneously passed, laparoscopic sleeve gastrectomy, IBS, anxiety, depression, marijuana use and multiple other medical issues presented to the ER with complaints of bilateral flank pain shifting to greater on the right side. Patient initially presented to the ER on 10/27 for left flank pain, CT at that time reported a 3 mm stone at the left UVJ, minimal asymmetric fullness of the left renal collecting system without significant obstructive uropathy and patient was discharged home. Patient reports she does not feel as if she passed her previous stone and now experiencing more severe pain on the right. CT of abdomen pelvis reporting new mild right hydroureteronephrosis and new perinephritic/periureteral fat standing. May represent recently passed calculus, nonvisualized obstructing calculus, infection. Similar appearance of 3 mm calcification in the proximal left ureter, similar mild fullness of the left collecting system unclear if it is causing obstruction at this time. UA negative. afebrile, WBC 11.7. Hemoglobin 11.4 platelets 355 sodium 134, potassium 4.3, bicarb 19, BUN 10, creatinine 0.84, lactic acid 0.8. IV fluids, antibiotics and pain management initiated in the ER. Urology consulted. 11/05. Patient seen and examined. Patient went for Cystoscopy, bilateral ureteroscopy, left-sided holmium laser lithotripsy, stone basketing, balloon dilation and bilateral stent insertion. Currently states she feels much better. REVIEW OF SYSTEMS: CONSTITUTIONAL: No fever, no malaise,. CARDIOVASCULAR: No chest pain, no palpitations, no syncope. PULMONARY: No shortness of breath, no cough, GASTROINTESTINAL: No diarrhea, no nausea, no vomiting, no abdominal pain. NEUROLOGICAL: No headaches, no weakness, PHYSICAL EXAMINATION: GENERAL: The patient is alert and oriented x3, not in any acute distress. Well developed, well nourished. HEENT: Pupils are round and equally reacting to light. EOMI. No scleral icterus. No conjunctival pallor. Normocephalic, atraumatic. No pharyngeal erythema. No thyromegaly. CARDIOVASCULAR: S1 and S2 present. No murmurs, rubs, or gallops. PULMONARY: Chest is clear to auscultation, no wheezing or crackles. ABDOMEN: Soft, nontender, nondistended, normoactive bowel sounds. No palpable organomegaly. MUSCULOSKELETAL: No joint swelling or deformity. EXTREMITIES: No cyanosis, clubbing, or pedal edema. NEUROLOGICAL: Gross neurological examination did not reveal any focal deficits. SKIN: No rashes. Assessment and plan Kidney stones, bilateral, hydroureteronephrosis, pyelonephritis Gastroesophageal reflux disease History of laparoscopic sleeve gastrectomy Morbid obesity, BMI 36 History of IBS Anxiety Depression Marijuana use Seasonal allergies Monitor vital signs Monitor CBC Monitor CMP Status post Cystoscopy, bilateral ureteroscopy, left-sided holmium laser lithotripsy, stone basketing, balloon dilation and bilateral stent insertion Continue IV Rocephin Continue pain management Continue IV fluids Urology following Labs and medication were reviewed.. Continue same treatment. Continue with symptomatic treatment. Resume home medication. Monitor labs and vitals. DVT and GI prophylaxis. Further recommendations as per clinical course of the patient Dictation was produced using [employer] dictation software. please excuse any grammatical, word or spelling errors. Objective - Vital Signs Vital signs: Vital Signs Temp 97.8 F 11/06/23 11:15 Pulse 78 11/06/23 12:53 Resp 18 11/06/23 12:53 BP 131/86 11/06/23 12:53 Pulse Ox 98 11/06/23 12:53 FiO2 Intake & Output 11/05/23 11/06/23 11/06/23 18:59 06:59 18:59 Intake Total 1000 Output Total 5 Balance 995 Weight 104.326 kg 104.326 kg Intake: IV 1000 Output: Estimated Blood Loss 5 Other: # Voids 1 - Labs CBC & Chem 7: 11/06/23 06:23 11/06/23 06:23 Labs: Abnormal Lab Results - Last 24 Hours (Table) 11/06/23 11/06/23 Range/Units 06:23 06:23 Hgb 10.8 L (11.4-16.0) gm/dL MCV 76.1 L (80.0-100.0) fL MCH 22.9 L (25.0-35.0) pg MCHC 30.0 L (31.0-37.0) g/dL RDW 17.8 H (11.5-15.5) % Chloride 111 H (98-107) mmol/L BUN 6 L (7-17) mg/dL
[2023-11-07 08:42] VITALS: BP 121/80; PULSE 67; RESP 18; TEMP 97.8
--- NOTE | 2023-11-07 13:28 | P.DS ---
Providers Date of admission: 11/05/23 07:16 Expected date of discharge: 11/07/23 Attending physician: Eric Manley Consults: 11/05/23 09:37 Consult Physician Stat Consulting Provider: Azael Mensah Consult Reason/Comments: kidney stone Do you want consulting provider notified?: Yes Primary care physician: Eric Manley Hospital Course: Discharge diagnoses; Kidney stones, bilateral, hydroureteronephrosis, pyelonephritis Gastroesophageal reflux disease History of laparoscopic sleeve gastrectomy Morbid obesity, BMI 36 History of IBS Anxiety Depression Marijuana use Seasonal allergies Hospital course; This is a 38-year-old obese female with past medical history significant for kidney stones, spontaneously passed, laparoscopic sleeve gastrectomy, IBS, anxiety, depression, marijuana use and multiple other medical issues presented to the ER with complaints of bilateral flank pain shifting to greater on the right side. Patient initially presented to the ER on 10/27 for left flank pain, CT at that time reported a 3 mm stone at the left UVJ, minimal asymmetric fullness of the left renal collecting system without significant obstructive uropathy and patient was discharged home. Patient reports she does not feel as if she passed her previous stone and now experiencing more severe pain on the right. CT of abdomen pelvis reporting new mild right hydroureteronephrosis and new perinephritic/periureteral fat standing. May represent recently passed calculus, nonvisualized obstructing calculus, infection. Similar appearance of 3 mm calcification in the proximal left ureter, similar mild fullness of the left collecting system unclear if it is causing obstruction at this time. UA negative. afebrile, WBC 11.7. Hemoglobin 11.4 platelets 355 sodium 134, potassium 4.3, bicarb 19, BUN 10, creatinine 0.84, lactic acid 0.8. IV fluids, antibiotics and pain management initiated in the ER. Urology consulted. 11/05. Patient seen and examined. Patient went for Cystoscopy, bilateral ureteroscopy, left-sided holmium laser lithotripsy, stone basketing, balloon dilation and bilateral stent insertion. Currently states she feels much better. 11/06. Patient seen and examined. Being discharged on oral Ceftin for 5 days. Outpatient follow-up with PCP PHYSICAL EXAMINATION: GENERAL: The patient is alert and oriented x3, not in any acute distress. Well developed, well nourished. HEENT: Pupils are round and equally reacting to light. EOMI. No scleral icterus. No conjunctival pallor. Normocephalic, atraumatic. No pharyngeal erythema. No thyromegaly. CARDIOVASCULAR: S1 and S2 present. No murmurs, rubs, or gallops. PULMONARY: Chest is clear to auscultation, no wheezing or crackles. ABDOMEN: Soft, nontender, nondistended, normoactive bowel sounds. No palpable organomegaly. MUSCULOSKELETAL: No joint swelling or deformity. EXTREMITIES: No cyanosis, clubbing, or pedal edema. NEUROLOGICAL: Gross neurological examination did not reveal any focal deficits. SKIN: No rashes. Dictation was produced using [employer] dictation software. please excuse any grammatical, word or spelling errors. Patient Condition at Discharge: Fair Plan - Discharge Summary New Discharge Prescriptions: New Ketorolac [Toradol] 10 mg PO Q6HR PRN 7 Days #28 tab PRN Reason: Pain/Discomfort cefUROXime axetiL [Ceftin] 500 mg PO BID 5 Days #10 tab Continue lamoTRIgine 150 mg PO BID ALPRAZolam [Xanax] 1 mg PO BID PRN PRN Reason: Anxiety Sertraline [Zoloft] 150 mg PO DAILY Omeprazole 20 mg PO DAILY Topiramate [Topamax] 50 mg PO BID Phentermine HCl [Adipex-P] 37.5 mg PO DAILY Ketoconazole 2% Shampoo [Nizoral] 1 applic TOPICAL Q2D PRN PRN Reason: dry scalp Galcanezumab-Gnlm [Emgality Pen] 120 mg SQ QMONTHLY Rimegepant Sulfate [Nurtec Odt] 75 mg PO Q48H PRN PRN Reason: Migraine Headache Discharge Medication List ALPRAZolam [Xanax] 1 mg PO BID PRN 02/11/21 [History] Omeprazole 20 mg PO DAILY 06/08/22 [History] Sertraline [Zoloft] 150 mg PO DAILY 06/08/22 [History] lamoTRIgine 150 mg PO BID 06/08/22 [History] Topiramate [Topamax] 50 mg PO BID 10/05/22 [History] Galcanezumab-Gnlm [Emgality Pen] 120 mg SQ QMONTHLY 11/05/23 [History] Ketoconazole 2% Shampoo [Nizoral] 1 applic TOPICAL Q2D PRN 11/05/23 [History] Phentermine HCl [Adipex-P] 37.5 mg PO DAILY 11/05/23 [History] Rimegepant Sulfate [Nurtec Odt] 75 mg PO Q48H PRN 11/05/23 [History] Ketorolac [Toradol] 10 mg PO Q6HR PRN 7 Days #28 tab 11/07/23 [Rx] cefUROXime axetiL [Ceftin] 500 mg PO BID 5 Days #10 tab 11/07/23 [Rx] Follow up Appointment(s)/Referral(s): Eric Manley DO [Primary Care Provider] - 1-2 Days Azael Mensah MD [STAFF PHYSICIAN] - 1 Week Discharge Disposition: HOME SELF-CARE
--- NOTE | 2023-12-02 10:35 | FL ---
EXAMINATION TYPE: FL guidance operating room DATE OF EXAM: 11/06/2023 10:34 AM COMPARISON: Pre Operative Images if available both CT/MRI or plain film CLINICAL INDICATION: Female, 38 years old with history of Cysto for bilateral kidney stones; TECHNIQUE: FL guidance operating room, multiple fluoroscopic images provided for procedure. Total fluoroscopy time: 1 min 19 seconds Total submitted images to PACS: 6 DAP: 15.370 mGym2 Gycm2 uGym2 cGycm2 or equivalent. FINDINGS: Multiple intraoperative fluoroscopic images were taken resulting in ureteral stent placement with sup erior pigtail in appropriate position projecting over the renal pelvis. No immediate intraoperative c omplication. Multilevel degeneration changes throughout the spine. IMPRESSION: 1. No evidence for intraoperative complication. 2. Please see the operative/procedural note for further details. [facility], , 12/02/2023 10:33 AM
== END 2023-11-07 13:50 | disposition home or self-care (01) | DRG 661 ==
LOC: EC 04:05 → 4SSUR 07:16 → 4FBP 15:29
PROVIDERS: ADMIT Family Medicine; ATTEND Family Medicine
PROC: 0T788DZ Dilation of Bilateral Ureters with Intraluminal Device, Via Natural or Artificial Opening Endoscopic (ICD-10-PCS; principal; 2023-11-06 09:00)
PROC: 0TC78ZZ Extirpation of Matter from Left Ureter, Via Natural or Artificial Opening Endoscopic (ICD-10-PCS; principal; 2023-11-06 09:00)
DX: N13.6 Pyonephrosis (principal); K21.9 Gastro-esophageal reflux disease without esophagitis; K58.0 Irritable bowel syndrome with diarrhea; F41.9 Anxiety disorder, unspecified; F32.A Depression, unspecified; E66.01 Morbid (severe) obesity due to excess calories; Z68.36 Body mass index [BMI] 36.0-36.9, adult; J30.2 Other seasonal allergic rhinitis; Z79.899 Other long term (current) drug therapy; Z88.2 Allergy status to sulfonamides; Z98.84 Bariatric surgery status
CPT/HCPCS: 36415; 74176; 80048; 80053; 81001; 81025; 82150; 82365; 83605; 83690; 85025; 96361; 96365; 96375; 96376; 99291

== ENCOUNTER → 2023-12-07 | Outpatient (CLI) | payer OTHER ==
--- NOTE | 2023-12-07 16:05 | XR ---
EXAMINATION TYPE: XR KUB DATE OF EXAM: 12/07/2023 COMPARISON: CT abdomen pelvis 11/05/2023 INDICATION: Renal calculus TECHNIQUE: Single view abdomen supine view FINDINGS: Nonspecific bowel gas is present within nondilated small bowel loops as well as the debris-filled col on. Postsurgical changes are noted in the epigastric region. Psoas margins are normal. No organomegaly is present. No suspicious calcifications are evident. Calcification in left hemipelvis appears to be present prev iously likely related to a phlebolith. IMPRESSION: 1. Unremarkable Abdomen [facility], Workstation: [facility], 12/07/2023 4:02 PM
== END | disposition home or self-care (01) ==
LOC: RADXRMAIN 15:30
PROVIDERS: ATTEND Urology
DX: N20.0 Calculus of kidney (principal)
CPT/HCPCS: 74018